=== PATIENT | female | born 1945 | race Caucasian/White ===

== ENCOUNTER 2016-10-22 22:03 | Inpatient (IN) | payer MEDICARE ==
[2016-10-22] MEDS ORDERED: Ondansetron INJ* 2 MG/ML VIAL IV ONE (22:38)
[2016-10-22] MEDS ORDERED: NS 0.9% 1000 ML* 1,000 ML IV ONE (22:38)
[2016-10-22] MEDS ORDERED: Morphine INJ* 2 MG/ML 1 ML SYRINGE IV ONE (22:38)
[2016-10-22 23:04] LABS: Hematocrit 42 % (35-47); Hemoglobin 13.3 g/dl (12.0-16.0); Mean Corpuscular HGB Conc 32 g/dl (31-36); Mean Corpuscular Hemoglobin 25 pg (27-31); Mean Corpuscular Volume 77 fL (80-97); Mean Platelet Volume 10 um3 (7.4-10.4); Red Blood Count 5.39 10^6/ul (4.0-5.4); Red Cell Distribution Width 16 % (10.5-15); White Blood Count 21.9 10^3/ul (3.5-10.8)
[2016-10-22 23:13] LABS: Comments Flag Yes
[2016-10-22 23:14] LABS: Add Diff/Slide Review? Slide Review Added
[2016-10-22 23:18] LABS: Albumin 4.6 g/dL (3.2-5.2); BUN/Creatinine Ratio 30.9 (8-20); C Reactive Protein 57.72 mg/L (< 5.00); Calcium 10.1 mg/dL (8.6-10.3); EGFR African American 62.6 (>60); EGFR Non-African American 48.7 (>60); Globulin 2.9 g/dL (2-4); Magnesium 2.1 mg/dL (1.9-2.7); Potassium 4.9 mmol/L (3.5-5.0); Total Bilirubin 0.5 mg/dL (0.2-1.0); Total Protein 7.5 g/dL (6.4-8.9)
[2016-10-22 23:51] LABS: Immature Granulocytes 14 % (0-9); Neutrophil % 78 % (38-83); RBC Morphology Normal (Normal); Reactive Lymph % 1 % (0-6)
[2016-10-23] MEDS ORDERED: Iodixanol* (CONTRAST) 320 MG/ML 100 ML SDV IV ONE (00:02)
--- NOTE | 2016-10-23 01:12 | HP ---
H&P (Free Text) History and Physical: PCP: Dale Gastelum MD Date/Time of Evaluation: 10/22/2016 2355 CC: abdominal pain HPI: Mrs Barger is a 71YO female HX diverticulosis presents with onset LUQ pain after she awoke this AM around 0800. She had not had a bowel movement for 2 days and so took Benefiber OTC last night. The pain is cramping and has gradually worsened throughout the day becoming associated with subjective F/C, N /V/D, & sweats. She states this feels the same as when she had diverticulosis . She has had some mild intermittent SOB, but no chest pain or palpitations. There has been no black or bloody content to her emesis or diarrhea. She denies exacerbating or alleviating factors. 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, B internal iliac, & R external iliac COPD upper GI bleed HTN HLD diverticulosis GERD depression Ambulatory Orders Simvastatin TAB(NF) [Zocor 20 MG (NF)] 2 tab PO DAILY 12/27/14 buPROPion SR TAB* [Wellbutrin SR TAB*] 1 tab PO TID 12/27/14 Albuterol 2.5MG/3ML (0.083%)* [Ventolin 2.5 MG/3 ML NEB.ENRIQUE*] 1 neb.enrique INH Q6HR PRN 03/12/15 Glipizide 1 tab PO BID 03/12/15 Albuterol HFA INHALER* [Ventolin HFA Inhaler*] 2 puff INH BID 05/28/15 Clopidogrel TAB* [Plavix TAB*] 1 tab PO DAILY 08/01/15 Tiotropium CAP.INH* [Spiriva CAP.INH*] 1 puff INH DAILY 08/01/15 Pantoprazole TAB (NF) [Protonix TAB (NF)] 40 mg PO DAILY #30 tab 02/05/16 Fluticasone/Vilanterol MDI(NF) [Breo Ellipta MDI 100/25(NF)] 1 puff INH DAILY Hydrochlorothiazide TAB* [Hydrodiuril TAB*] 25 mg PO DAILY 07/28/16 Lisinopril [Zestril 10 MG-] 10 mg PO DAILY 07/28/16 Bumetanide TAB* [Bumex 1 MG TAB*] 1 tab PO WEEKLY PRN 10/23/16 Diltiazem CD CAP* [Cardizem CD CAP*] 240 mg PO DAILY 10/23/16 Allergies Atorvastatin Allergy (Verified 02/01/16 22:30) Diarrhea Azithromycin [From Zithromax] Allergy (Verified 02/01/16 22:30) Hives Levofloxacin [From Levaquin] Allergy (Verified 02/01/16 22:30) Hives Penicillins Allergy (Verified 02/01/16 22:30) Hives PSurgHx stents to aorta, B internal iliac, & R external iliac SocHx: quit smoking 2014, rare alcohol, no recreational drugs; lives with her ; full code status FamHx: Mother passed of lung CA in her 60s. Father passed of colon CA in his 40s. Brother x2: DM2; Brother x1: SLE ROS: as above, otherwise reviewed and all were negative Constitutional: NAD, normally developed, well-nourished white female vitals: Vital Signs Temp 37.4 C 10/22/16 22:11 Pulse 83 10/23/16 03:37 Resp 16 10/22/16 23:27 BP 140/61 10/23/16 03:37 Pulse Ox 94 10/23/16 03:37 Intake & Output 10/22/16 10/22/16 10/23/16 11:59 23:59 11:59 Weight 65.317 kg Other: Date of Last Bowel 10/20/16 Movement HEENM: atraumatic; sclera/conjunctiva: non-icteric/clear; hearing: clinically intact ; oropharynx: clear, mucosa tacky Neck: soft tissue: no nuchal rigidity; thyroid: normal Pulmonary: clear to auscultation bilaterally, good aeration, no accessory muscle use CV: RR/RR, normal S1S2, no carotid bruit, no jugular venous distention, 2+ B DP/ PT, no edema Abdominal: soft, non-distended, moderate diffuse tenderness worst in the LUQ, no rebound/guarding/rigidity, hypoactive bowel sounds, no hepatosplenomegaly or masses, no costovertebral angle tenderness Musculoskeletal: general: grossly intact; gait: stable Integumental: normal appearance and texture of exposed skin Psychiatric orientation: AA&O to PPS affect: calm mood: cooperative eye contact: fair content: reliable responses: timely insight: good Testing: Lab Results 10/22/16 10/22/16 10/22/16 Range/Units 22:54 22:54 22:54 WBC 21.9 H (3.5-10.8) 10^3/ul RBC 5.39 (4.0-5.4) 10^6/ul Hgb 13.3 (12.0-16.0) g/dl Hct 42 (35-47) % MCV 77 L (80-97) fL MCH 25 L (27-31) pg MCHC 32 (31-36) g/dl RDW 16 H (10.5-15) % Plt Count 271 (150-450) 10^3/ul MPV 10 (7.4-10.4) um3 Immature Gran % (Auto) 14 H (0-9) % Neut % (Auto) 93.6 H (38-83) % Lymph % (Auto) 2.6 L (25-47) % [place] % (Auto) 3.4 (1-9) % Eos % (Auto) 0 (0-6) % Baso % (Auto) 0.4 (0-2) % Absolute Neuts (auto) 20.5 H (1.5-7.7) 10^3/ul Absolute Lymphs (auto) 0.6 L (1.0-4.8) 10^3/ul Absolute Monos (auto) 0.7 (0-0.8) 10^3/ul Absolute Eos (auto) 0 (0-0.6) 10^3/ul Absolute Basos (auto) 0.1 (0-0.2) 10^3/ul Absolute Nucleated RBC 0.01 10^3/ul Neutrophils % 78 (38-83) % Band Neutrophils % 14 H (0-8) % Lymphocytes % 5 L (25-47) % Reactive Lymphs % 1 (0-6) % Monocytes % 2 (0-13) % Nucleated RBC % 0 Normal RBC Morphology Normal (Normal) Sodium 136 (133-145) mmol/L Potassium 4.9 (3.5-5.0) mmol/L Chloride 99 L (101-111) mmol/L Carbon Dioxide 27 (22-32) mmol/L Anion Gap 10 (2-11) mmol/L BUN 34 H (6-24) mg/dL Creatinine 1.10 H (0.51-0.95) mg/dL Est GFR ( Amer) 62.6 (>60) Est GFR (Non-Af Amer) 48.7 (>60) BUN/Creatinine Ratio 30.9 H (8-20) Glucose 325 H (70-100) mg/dL Lactic Acid 1.6 (0.5-2.0) mmol/L Calcium 10.1 (8.6-10.3) mg/dL Magnesium 2.1 (1.9-2.7) mg/dL Total Bilirubin 0.50 (0.2-1.0) mg/dL AST 10 L (13-39) U/L ALT 10 (7-52) U/L Alkaline Phosphatase 88 (34-104) U/L C-Reactive Protein 57.72 H (< 5.00) mg/L Total Protein 7.5 (6.4-8.9) g/dL Albumin 4.6 (3.2-5.2) g/dL Globulin 2.9 (2-4) g/dL Albumin/Globulin Ratio 1.6 (1-3) Lipase 595 H (11.0-82.0) U/L CXR, personally reviewed: no acute process CT abd/pel W, personally reviewed: IMPRESSION: Moderate to severe inflammation of the distal transverse colon, splenic flexure, and proximal descending colon which may be secondary to infection, bowel ischemia, or inflammatory bowel disease. Acute diverticulitis is considered less likely. No obvious secondary complications. Stable bilateral adrenal nodules may be adenomas. Gallstones. Tiny fibroids. Mild central canal narrowing from a retropulsed L4 compression fracture which is new since the prior exam but still appears old. Impression: 71F presenting with <24H LUQ abdominal pain found to have DIAGNOSIS & PLAN Primary trasverse & descending colitis, likely infectious vs ischemic : IVFs : IV meropenem (allergy to PCN & quinalones) : pain control : anti-emetics : blood CXs : Elan Kerr MD surgery aware, but not consulted as no surgical indication present at this time : supplemental oxygen : supportive care EVELYN : IVFs, trend elevated lipase : suspect 2nd proximity of pancreas to severely inflammed transverse colon : trend Secondary DM2 : hold glipizide : update A1c : correctional insulin PAOD : HX stents to aorta, B internal iliac, & R external iliac : continue clopidogrel COPD : albuterol nebs : mometasone/formoterol : tiotropium : incentive spirometry HTN : hold lisinopril in setting of EVELYN : hold HCTZ in setting of volume depletion : continue diltiazem HLD : continue atorvastatin GERD : continue pantoprazole depression : continue bupropion SR Admission Rational: inpatient for severe colitis in patient at risk of rapid deterioration, inappropriate for outpatient setting DVTp: heparin SQ & SCDs Code Status: full HCP:
--- NOTE | 2016-10-23 01:18 | ED ---
Gil Tolbert Thomas, scribed for Jim Mo MD on 10/22/16 at 2314 . Abdominal Pain/Female - HPI Summary HPI Summary: The pt is a 71 y/o F presenting to the ED c/o LUQ abd pain that began this AM at 08:00. The pain is constant and described as cramping and sharp. The pt rates the pain 8/10. The pain is aggravated by nothing. The pain is alleviated by positional change, sometimes. 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 Pt additionally c/o constipation (last BM two days ago), nausea, vomiting ( 10-12x today). PMHx: DM, HTN, COPD, diverticulosis. PSHx: tubal ligation, adenoma removal L thigh. SHx: former smoker, rare alcohol use, no illicit drug use. She reports prior episodes of pain like this during which she was diagnosed with diverticulosis. She is on Oxygen NC at time of examination. - History of Current Complaint Chief Complaint: EDAbdPain Stated Complaint: ABD PAIN Time Seen by Provider: 10/22/16 22:34 Hx Obtained From: Patient, Family/Creative Arts Therapist - in room Onset/Duration: Sudden Onset, Lasting Hours - this AM at 08:00, Still Present Timing: Constant Pain Intensity: 8 Pain Scale Used: 0-10 Numeric Location: Discrete At: LUQ Character: Sharp, Cramping Aggravating Factor(s): Nothing Alleviating Factor(s): Position - sometimes Associated Signs and Symptoms: Positive: Constipation, Nausea, Vomiting - 10- 12x today. Negative: Fever Allergies/Adverse Reactions: Allergies Allergy/AdvReac Type Severity Reaction Status Date / Time Atorvastatin Allergy Diarrhea Verified 02/01/16 22:30 Azithromycin [From Zithromax] Allergy Hives Verified 02/01/16 22:30 Levofloxacin [From Levaquin] Allergy Hives Verified 02/01/16 22:30 Penicillins Allergy Hives Verified 02/01/16 22:30 Home Medications: Home Medications Bumetanide TAB* [Bumex 1 MG TAB*] 1 tab PO WEEKLY PRN 10/23/16 [History Confirmed 10/23/16] Diltiazem CD CAP* [Cardizem CD CAP*] 240 mg PO DAILY 10/23/16 [History Confirmed 10/23/16] PMH/Surg Hx/FS Hx/Imm Hx Previously Healthy: No Endocrine/Hematology History: Reports: Hx Diabetes Denies: Hx Thyroid Disease Cardiovascular History: Reports: Hx Hypertension - ON MEDS, Other Cardiovascular Problems/Disorders - 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 / 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/2015 Denies: Hx Pacemaker/ICD Respiratory History: Reports: Hx Asthma, Hx Chronic Obstructive Pulmonary Disease (COPD) - on home O2 - 2 L at night, Hx Pneumonia GI History: Reports: Hx Diverticulosis Denies: Hx Ulcer History: Denies: Hx Renal Disease Musculoskeletal History: Reports: Hx Back Problems - chronic pain, Other Musculoskeletal History - shoulder pain Sensory History: Reports: Hx Contacts or Glasses Denies: Hx Hearing Aid Opthamlomology History: Reports: Hx Contacts or Glasses Neurological History: Comment Only: Other Neuro Impairments/Disorders - PAIN CLINIC PATIENT Psychiatric History: Reports: Hx Anxiety, Hx Depression Denies: Hx Panic Disorder - Surgical History Surgery Procedure, Year, and Place: TUBAL LIGATION, FATTY MASS FROM LT THIGH - Immunization History Date of Tetanus Vaccine: unk Date of Influenza Vaccine: 12/31/15 Infectious Disease History: No Infectious Disease History: Denies: Hx Hepatitis, Hx Human Immunodeficiency Virus (HIV), History Other Infectious Disease, Traveled Outside the [place] in Last 30 Days - Family History Known Family History: Positive: Diabetes Negative: Cardiac Disease, Hypertension - Social History Alcohol Use: Rare Hx Substance Use: No Substance Use Type: Reports: None Smoking Status (MU): Former Smoker Type: Cigarettes Amount Used/How Often: 1 ppd Length of Time of Smoking/Using Tobacco: 50 yrs Have You Smoked in the Last Year: No Review of Systems Negative: Fever Positive: Abdominal Pain - LUQ, onset this AM, Vomiting - 10-12 times today, Nausea, Other - constipation (last BM two days ago) All Other Systems Reviewed And Are Negative: Yes Physical Exam Triage Information Reviewed: Yes Vital Signs On Initial Exam: Initial Vitals Temp Pulse Resp BP Pulse Ox 99.3 F 82 16 187/70 96 10/22/16 22:11 10/22/16 22:11 10/22/16 22:11 10/22/16 22:11 10/22/16 22:11 Vital Signs Reviewed: Yes Appearance: Positive: Ill-Appearing, Pain Distress - modeate discomfort Skin: Positive: Warm Head/Face: Positive: Normal Head/Face Inspection Eyes: Positive: FABRIZIO ENT: Positive: Hearing grossly normal Neck: Positive: Supple Respiratory/Lung Sounds: Positive: Clear to Auscultation, Breath Sounds Present Cardiovascular: Positive: RRR Abdomen Description: Positive: Soft, Other: - mild diffuse abd tenderness. Negative: Distended, Guarding Musculoskeletal: Positive: Strength/ROM Intact Neurological: Positive: Alert, Oriented to Person Place, Time Psychiatric: Positive: Affect/Mood Appropriate - Miller Coma Scale Coma Scale Total: 15 Diagnostics - Vital Signs Vital Signs Temp Pulse Resp BP Pulse Ox 10/22/16 22:11 99.3 F 82 16 187/70 96 - Laboratory Result Diagrams: 10/22/16 22:54 10/22/16 22:54 Lab Statement: Any lab studies that have been ordered have been reviewed, and results considered in the medical decision making process. Re-Evaluation - Re-Evaluation First Eval Comment: results d/w pt, case d/w hospitalist Abdominal Pain Fem Course/Dx - Diagnoses Provider Diagnoses: Abdominal pain - Provider Notifications Instructed by Provider To: Admit As Inpatient Discharge - Discharge Plan Condition: Fair Disposition: ADMITTED TO [facility] The documentation as recorded by the Gil prado Thomas accurately reflects the service I personally performed and the decisions made by , Jim Mo MD.
[2016-10-23] MEDS ORDERED: Acetaminophen TAB* 325 MG PO PRN (04:15)
[2016-10-23] MEDS ORDERED: CMCS: Melatonin (NF) 3 MG TAB PO PRN (04:16)
[2016-10-23] MEDS ORDERED: NS 0.9% 1000 ML* 1,000 ML IV ONE (04:30)
[2016-10-23] MEDS ORDERED: Meropenem 1 GM PREMIX(*) 1 GM/50 ML BAG IV SCH (05:00)
[2016-10-23] MEDS: HYDROmorphone* 1 MG/ML 1 ML SYR IV PRN ×4 (05:33→20:22)
[2016-10-23 06:03] LABS: Hematocrit 36 % (35-47); Hemoglobin 11.5 g/dl (12.0-16.0); Mean Corpuscular HGB Conc 32 g/dl (31-36); Mean Corpuscular Hemoglobin 25 pg (27-31); Mean Corpuscular Volume 77 fL (80-97); Mean Platelet Volume 10 um3 (7.4-10.4); Red Blood Count 4.65 10^6/ul (4.0-5.4); Red Cell Distribution Width 16 % (10.5-15); White Blood Count 18.1 10^3/ul (3.5-10.8)
[2016-10-23 06:16] LABS: BUN/Creatinine Ratio 33.7 (8-20); Calcium 9.3 mg/dL (8.6-10.3); EGFR African American 74.2 (>60); EGFR Non-African American 57.7 (>60); Potassium 4.2 mmol/L (3.5-5.0)
[2016-10-23] MEDS: NS 0.9% 1000 ML* 1,000 ML IV SCH ×3 (06:31→23:34)
--- NOTE | 2016-10-23 06:43 | PN ---
Progress Note - Progress Note Date of Service: 10/23/16 Note: Given clinical picture & escalating lipase, concurrent pancreatitis is suspected. Will make NPO x/ meds w/ sips H2O.
--- NOTE | 2016-10-23 08:17 | RAD ---
INDICATION: Left upper quadrant abdominal pain COMPARISON: Chest x-ray dated February 03, 2016 TECHNIQUE: PA and lateral views of the chest were obtained. FINDINGS: The heart and mediastinum are normal in size and contour. There is coarse atherosclerotic calcification overlying the arch of the aorta. The lungs are grossly clear. There is no evidence of large pleural effusion. Visualized bones are normal for the patient's age. There is no radiographic evidence of free air beneath the diaphragm IMPRESSION: No radiographic evidence of acute cardiopulmonary disease.
[2016-10-23] MEDS: Clopidogrel TAB* 75 MG PO SCH (08:26)
[2016-10-23] MEDS: Diltiazem CD CAP* 240 MG PO SCH (08:26)
[2016-10-23] MEDS: CMCS: Pantoprazole TAB (NF) 40 MG TAB PO SCH (08:26)
[2016-10-23] MEDS: CMCS: Simvastatin TAB(NF) 20 MG TAB PO SCH (08:26)
--- NOTE | 2016-10-23 08:34 | RAD ---
CLINICAL HISTORY: Left upper quadrant pain x2 days COMPARISON: CTA abdomen and pelvis with runoff dated May 13, 2015 TECHNIQUE: Contrast enhanced CT examination of the abdomen and pelvis from the lung bases through the initial tuberosities. The patient received 81 mL Visipaque 320 intravenously prior to imaging.The patient received oral contrast as well prior to imaging. FINDINGS: VISUALIZED LUNG BASES: The lungs exhibit diffuse centrilobular emphysematous changes. Otherwise the visualized lung bases are grossly clear. There is no pleural effusion. ABDOMEN AND PELVIS: The liver, spleen and pancreas are grossly normal in appearance. Bilaterally the adrenal glands are hypertrophied and lobular in appearance. At the apex of the left adrenal gland (image 32) there is a 1.5 cm nodule slightly increased from 1.3 cm on the previous CT examination. There are hyperattenuating gallstones in the dependent portion of the otherwise normal-appearing gallbladder. There are bilateral fluid density cysts in the kidneys. Smaller subcentimeter low-attenuation foci cannot be characterized more fully. Otherwise the Kidneys are normal in appearance without focal mass, calcification or signs of hydronephrosis. The oral contrast has progressed as far as the distal small bowel. The small and large bowel are not distended. The patient's normal appendix is identified in the right lower quadrant. Beginning at the transverse colon there is inflammatory change that includes wall thickening and pericolonic stranding of the mesenteric fat. This extends as far as the proximal portion of the descending colon. There are scattered diverticula in this area. The diverticula becoming more concentrated at the rectosigmoid colon. There is no gross retroperitoneal or mesenteric lymphadenopathy. Coarse calcification in the uterus could be seen with chronic fibroids. There is widespread calcified atherosclerosis of the abdominal aorta, branch arteries and iliac arteries. The patient is status post stenting of the iliac arteries and lower abdominal aorta. Degenerative changes include multilevel loss of intervertebral disc height involving the lower thoracic and lumbar spine.There are no sinister bone lesions. IMPRESSION: 1. There is focal inflammatory change from the midpoint of the transverse colon extending to the proximal descending colon. Potentially this represents acute diverticulitis or is secondary to other infectious or inflammatory etiologies. Due to the patient's vasculopathy, an ischemic etiology could be considered, though the distribution is not characteristic for bowel infarction. Please correlate to lactate levels. 2. Right greater than left adrenal hyperplasia with a left adrenal soft tissue nodule that has not changed significantly since the February 04, 2016 CTA of the chest. If clinically warranted more complete characterization can be made with CT of the abdomen according to the adrenal gland protocol or by contrast-enhanced MRI of the abdomen. 3. Additional chronic, degenerative and iatrogenic findings described in the body the report.
[2016-10-23] MEDS: Insulin LISPRO* 1 UNITS UNIT SUBCUT SCH ×4 (08:38→23:44)
[2016-10-23] MEDS ORDERED: Spiriva Inhaler DEVICE* 1 EACH DEVICE INH ONE (09:00)
[2016-10-23] MEDS ORDERED: GLIPIZIDE PO SCH (09:00)
[2016-10-23] MEDS: Tiotropium CAP.INH* CAP.INH/18 MCG (USE ORDER SET !) INH SCH (09:04)
[2016-10-23] MEDS: Mometasone/Formoter 200/5 MDI INH SCH ×2 (09:05→19:36)
[2016-10-23 12:53] LABS: Urine Bacteria Absent (Absent); Urine Bilirubin Negative (Negative); Urine Glucose 3+(>=500 mg/dL) (Negative); Urine Nitrite Negative (Negative)
--- NOTE | 2016-10-23 16:18 | PN ---
Subjective Date of Service: 10/23/16 Interval History: Patient still with abdominal pain. Resting more comfortably right now. Objective Active Medications: Acetaminophen (Tylenol Tab*) 650 mg PO Q6H PRN PRN Reason: FEVER/PAIN Albuterol (Ventolin 2.5 Mg/3 Ml Neb.Abigail*) 2.5 mg INH Q2H PRN PRN Reason: SOB/WHEEZING Bupropion HCl (Wellbutrin Sr Tab*) 150 mg PO BID@0800,1700 [facility] Clopidogrel Bisulfate (Plavix Tab*) 75 mg PO DAILY [facility] Last Admin: 10/23/16 08:26 Dose: 75 mg Diltiazem HCl (Cardizem Cd Cap*) 240 mg PO DAILY [facility] Last Admin: 10/23/16 08:26 Dose: 240 mg Heparin Sodium (Porcine) (Heparin Vial(*)) 5,000 units SUBCUT Q8HR [facility] Hydromorphone HCl (Dilaudid Iv*) 0.5 mg IV Q2H PRN PRN Reason: PAIN Last Admin: 10/23/16 15:13 Dose: 0.5 mg Sodium Chloride (Ns 0.9% 1000 Ml*) 1,000 mls @ 125 mls/hr IV PER RATE [facility] Last Admin: 10/23/16 15:24 Dose: 125 mls/hr Ceftriaxone Sodium 1,000 mg/ (Sodium Chloride) 50 mls @ 200 mls/hr IVPB Q24H [facility] Metronidazole/Sodium Chloride (Flagyl 500 Mg Ivpb*) 500 mg in 100 mls @ 100 mls /hr IVPB Q8H [facility] Insulin Human Lispro (Humalog*) 0 units SUBCUT Q4H [facility] PRN Reason: Protocol Last Admin: 10/23/16 12:31 Dose: Not Given Melatonin (Melatonin (Nf)) 3 mg PO BEDTIME PRN; Protocol PRN Reason: Sleep Mometasone Furoate/Formoterol Fumar (Dulera 200/5 Mdi*) 2 puff INH BID [facility] Last Admin: 10/23/16 09:05 Dose: 2 puff Ondansetron HCl (Zofran Inj*) 4 mg IV Q6H PRN PRN Reason: NAUSEA Pantoprazole Sodium (Protonix Tab (Nf)) 40 mg PO DAILY [facility] Last Admin: 10/23/16 08:26 Dose: 40 mg Simvastatin (Zocor(Nf)) 40 mg PO DAILY [facility] Last Admin: 10/23/16 08:26 Dose: 40 mg Tiotropium Gary (Spiriva Cap.Inh*) 1 cap INH DAILY [facility] Last Admin: 10/23/16 09:04 Dose: 1 cap Vital Signs 10/23/16 10/23/16 10/23/16 05:30 05:31 05:33 Temperature 98.9 F 98.9 F Pulse Rate 84 84 Respiratory 20 20 17 Rate Blood Pressure 150/72 150/72 (mmHg) O2 Sat by Pulse 100 100 Oximetry 10/23/16 10/23/16 10/23/16 06:33 07:30 08:00 Temperature 98.1 F Pulse Rate 76 Respiratory 17 22 14 Rate Blood Pressure 183/61 (mmHg) O2 Sat by Pulse 97 Oximetry 10/23/16 10/23/16 10/23/16 09:07 12:18 15:13 Temperature Pulse Rate 82 Respiratory 14 14 16 Rate Blood Pressure (mmHg) O2 Sat by Pulse 94 Oximetry Oxygen Devices in Use Now: Nasal Cannula Appearance: Elderly woman lying in bed in NAD Eyes: No Scleral Icterus Ears/Nose/Mouth/Throat: Mucous Membranes Moist Neck: No Thyroid Enlargement, Masses Respiratory: Clear to Auscultation Cardiovascular: - - S1S2 martin Abdominal: No Hepatosplenomegaly, - - Diffusely Tender, but no rebound guarding or rigidity Lymphatic: No Cervical Adenopathy Extremities: No Clubbing, Cyanosis Skin: No Rash or Ulcers Neurological: Alert and Oriented x 3 Result Diagrams: 10/23/16 05:46 10/23/16 05:46 Assess/Plan/Problems-Billing Assessment: Patient is a 71 year old woman who presented to [facility] with abdominal pain and initially thought to have colitis but likey has pancreatitis. - Patient Problems (1) Pancreatitis Current Visit: Yes Status: Acute Code(s): K85.90 - ACUTE PANCREATITIS WITHOUT NECROSIS OR INFECTION, UNSP SNOMED Code(s): 20946130 Comment: Lipase elevated. Keep npo. IVF. Monitor. Consider GI consult if no improvement. Her Inez criteria initially was problematic with elevated WBC, glucose, age. Will recheck labs after hydration tomorrow. (2) Diverticulitis Current Visit: Yes Status: Acute Comment: It is possible to have concurrent colitis and/or diverticulitis so will continue rocephin and flagyl for now. (3) EVELYN (acute kidney injury) Current Visit: No Status: Acute Code(s): N17.9 - ACUTE KIDNEY FAILURE, UNSPECIFIED SNOMED Code(s): 39282964 Comment: Improved since admission. Monitor. (4) Type 2 diabetes mellitus Current Visit: No Status: Acute Comment: Glucose 200's. Oral hypoglycemic agents held at this time. Cover with SS Humalog (5) GERD (gastroesophageal reflux disease) Current Visit: Yes Status: Acute Code(s): K21.9 - GASTRO-ESOPHAGEAL REFLUX DISEASE WITHOUT ESOPHAGITIS SNOMED Code(s): 192597249 Comment: Continue Protonix. Stable. (6) COPD (chronic obstructive pulmonary disease) Current Visit: No Status: Chronic Code(s): J44.9 - CHRONIC OBSTRUCTIVE PULMONARY DISEASE, UNSPECIFIED SNOMED Code(s): 71062721 Comment: No evidence of acute exacerbation. Cont home inhaled medications (7) Hypertension Current Visit: No Status: Chronic Code(s): I10 - ESSENTIAL (PRIMARY) HYPERTENSION SNOMED Code(s): 40054400 Comment: BP elevated 150 - 180's. Cont diltiazem. Consider adjustment if necessary. (8) DVT prophylaxis Current Visit: Yes Status: Acute Code(s): XLC6815 - SNOMED Code(s): 341878279 Comment: Heparin sq and scds (9) Full code status Current Visit: No Status: Acute Code(s): Z78.9 - OTHER SPECIFIED HEALTH STATUS SNOMED Code(s): 904991829
[2016-10-23] MEDS: metroNIDAZOLE IV 500 MG/100ML* 500 MG/100 ML BAG IVPB SCH ×2 (16:42→23:34)
[2016-10-23] MEDS: buPROPion SR TAB.SR* 150 MG PO SCH (16:43)
[2016-10-23] MEDS: cefTRIAXone VIAL(*) 1,000 MG in NS 0.9% 50 ML* 50 ML IVPB SCH (18:55)
[2016-10-23] MEDS: Ondansetron INJ* 2 MG/ML VIAL IV PRN (20:52)
[2016-10-24] MEDS: Insulin LISPRO* 1 UNITS UNIT SUBCUT SCH ×5 (03:34→21:45)
[2016-10-24] MEDS: HYDROmorphone* 1 MG/ML 1 ML SYR IV PRN ×4 (04:23→23:58)
[2016-10-24] MEDS: Heparin VIAL(*) 5000 UNITS/ML VIAL (FIVE THOUSAND) SUBCUT SCH ×3 (05:18→21:21)
[2016-10-24 06:29] LABS: Hematocrit 31 % (35-47); Hemoglobin 9.8 g/dl (12.0-16.0); Mean Corpuscular HGB Conc 32 g/dl (31-36); Mean Corpuscular Hemoglobin 25 pg (27-31); Mean Corpuscular Volume 78 fL (80-97); Mean Platelet Volume 9 um3 (7.4-10.4); Red Blood Count 3.93 10^6/ul (4.0-5.4); Red Cell Distribution Width 16 % (10.5-15); White Blood Count 14.1 10^3/ul (3.5-10.8)
[2016-10-24 06:44] LABS: Albumin 2.9 g/dL (3.2-5.2); BUN/Creatinine Ratio 32.2 (8-20); Calcium 8.6 mg/dL (8.6-10.3); EGFR African American 128.5 (>60); EGFR Non-African American 99.9 (>60); Globulin 2.7 g/dL (2-4); Potassium 3.9 mmol/L (3.5-5.0); Total Protein 5.6 g/dL (6.4-8.9)
[2016-10-24 06:45] LABS: Total Bilirubin 0.2 mg/dL (0.2-1.0)
[2016-10-24] MEDS: Mometasone/Formoter 200/5 MDI INH SCH ×2 (07:30→19:53)
[2016-10-24] MEDS: Tiotropium CAP.INH* CAP.INH/18 MCG (USE ORDER SET !) INH SCH (07:31)
[2016-10-24] MEDS: Ondansetron INJ* 2 MG/ML VIAL IV PRN (08:12)
[2016-10-24] MEDS: CMCS: Simvastatin TAB(NF) 20 MG TAB PO SCH (08:14)
[2016-10-24] MEDS: Diltiazem CD CAP* 240 MG PO SCH (08:14)
[2016-10-24] MEDS: Clopidogrel TAB* 75 MG PO SCH (08:14)
[2016-10-24] MEDS: CMCS: Pantoprazole TAB (NF) 40 MG TAB PO SCH (08:14)
[2016-10-24] MEDS: buPROPion SR TAB.SR* 150 MG PO SCH ×2 (08:14→16:55)
[2016-10-24] MEDS: metroNIDAZOLE IV 500 MG/100ML* 500 MG/100 ML BAG IVPB SCH ×2 (08:24→15:13)
[2016-10-24] MEDS: NS 0.9% 1000 ML* 1,000 ML IV SCH ×2 (08:26→19:32)
--- NOTE | 2016-10-24 14:54 | PN ---
Subjective Date of Service: 10/24/16 Interval History: Patient still with 7/7 pain but says she is feeling better. She wants to try and advance her diet. Objective Active Medications: Acetaminophen (Tylenol Tab*) 650 mg PO Q6H PRN PRN Reason: FEVER/PAIN Albuterol (Ventolin 2.5 Mg/3 Ml Neb.Abigail*) 2.5 mg INH Q2H PRN PRN Reason: SOB/WHEEZING Bupropion HCl (Wellbutrin Sr Tab*) 150 mg PO BID@0800,1700 [facility] Last Admin: 10/24/16 08:14 Dose: 150 mg Clopidogrel Bisulfate (Plavix Tab*) 75 mg PO DAILY [facility] Last Admin: 10/24/16 08:14 Dose: 75 mg Diltiazem HCl (Cardizem Cd Cap*) 240 mg PO DAILY [facility] Last Admin: 10/24/16 08:14 Dose: 240 mg Heparin Sodium (Porcine) (Heparin Vial(*)) 5,000 units SUBCUT Q8HR [facility] Last Admin: 10/24/16 13:57 Dose: 5,000 units Hydromorphone HCl (Dilaudid Iv*) 0.5 mg IV Q2H PRN PRN Reason: PAIN Last Admin: 10/24/16 08:13 Dose: 0.5 mg Sodium Chloride (Ns 0.9% 1000 Ml*) 1,000 mls @ 125 mls/hr IV PER RATE [facility] Last Admin: 10/24/16 08:26 Dose: 125 mls/hr Ceftriaxone Sodium 1,000 mg/ (Sodium Chloride) 50 mls @ 200 mls/hr IVPB Q24H [facility] Last Admin: 10/23/16 18:55 Dose: 200 mls/hr Metronidazole/Sodium Chloride (Flagyl 500 Mg Ivpb*) 500 mg in 100 mls @ 100 mls /hr IVPB Q8H [facility] Last Admin: 10/24/16 08:24 Dose: 100 mls/hr Insulin Human Lispro (Humalog*) 0 units SUBCUT Q4H [facility] PRN Reason: Protocol Last Admin: 10/24/16 11:46 Dose: Not Given Melatonin (Melatonin (Nf)) 3 mg PO BEDTIME PRN; Protocol PRN Reason: Sleep Mometasone Furoate/Formoterol Fumar (Dulera 200/5 Mdi*) 2 puff INH BID [facility] Last Admin: 10/24/16 07:30 Dose: 2 puff Ondansetron HCl (Zofran Inj*) 4 mg IV Q6H PRN PRN Reason: NAUSEA Last Admin: 10/24/16 08:12 Dose: 4 mg Pantoprazole Sodium (Protonix Tab (Nf)) 40 mg PO DAILY [facility] Last Admin: 10/24/16 08:14 Dose: 40 mg Simvastatin (Zocor(Nf)) 40 mg PO DAILY [facility] Last Admin: 10/24/16 08:14 Dose: 40 mg Tiotropium [place] (Spiriva Cap.Inh*) 1 cap INH DAILY [facility] Last Admin: 10/24/16 07:31 Dose: 1 cap Vital Signs 10/23/16 10/23/16 10/23/16 15:13 15:35 16:13 Temperature 98.1 F Pulse Rate 73 Respiratory 16 16 14 Rate Blood Pressure 146/55 (mmHg) O2 Sat by Pulse 95 Oximetry 10/23/16 10/23/16 10/23/16 19:35 19:38 20:00 Temperature 98.8 F Pulse Rate 78 79 Respiratory 18 18 16 Rate Blood Pressure 122/42 (mmHg) O2 Sat by Pulse 95 93 Oximetry 10/23/16 10/23/16 10/23/16 20:22 21:22 23:28 Temperature 98.4 F Pulse Rate 72 Respiratory 18 18 16 Rate Blood Pressure 137/42 (mmHg) O2 Sat by Pulse 94 Oximetry 10/24/16 10/24/16 10/24/16 03:47 04:23 05:23 Temperature 99.2 F Pulse Rate 78 Respiratory 16 18 16 Rate Blood Pressure 151/52 (mmHg) O2 Sat by Pulse 93 Oximetry 10/24/16 10/24/16 10/24/16 07:30 07:33 08:00 Temperature 98.3 F Pulse Rate 71 77 Respiratory 20 16 20 Rate Blood Pressure 143/47 (mmHg) O2 Sat by Pulse 97 93 Oximetry 10/24/16 10/24/16 10/24/16 08:13 09:13 11:29 Temperature 97.6 F Pulse Rate 75 Respiratory 18 18 22 Rate Blood Pressure 150/51 (mmHg) O2 Sat by Pulse 93 Oximetry Oxygen Devices in Use Now: Nasal Cannula Appearance: Elderly woman lying in bed in [facility] Eyes: No Scleral Icterus Ears/Nose/Mouth/Throat: Mucous Membranes Moist Neck: No Thyroid Enlargement, Masses Respiratory: Clear to Auscultation Cardiovascular: - - S1S2 martin Abdominal: No Hepatosplenomegaly, - - Some tenderness to palpation mid abdomen but no rebound guarding or rigidity Lymphatic: No Cervical Adenopathy Extremities: No Clubbing, Cyanosis Skin: No Rash or Ulcers Neurological: Alert and Oriented x 3 Result Diagrams: 10/24/16 05:53 10/24/16 05:53 Microbiology and Other Data: Microbiology 10/23/16 05:46 Aerobic Blood Culture - Preliminary Blood Venous No Growth Day 1 Anaerobic Blood Culture - Preliminary No Growth Day 1 Assess/Plan/Problems-Billing Assessment: Patient is a 71 year old woman who presented to [facility] [place] with abdominal pain and initially thought to have colitis but likey has pancreatitis. - Patient Problems (1) Pancreatitis Current Visit: Yes Status: Acute Code(s): K85.90 - ACUTE PANCREATITIS WITHOUT NECROSIS OR INFECTION, UNSP SNOMED Code(s): 45535371 Comment: Lipase improved.As is WBC .Will try clear liquid diet. IVF. Monitor. (2) Diverticulitis Current Visit: Yes Status: Acute Comment: Continue rocephin and flagyl for now.Appears to be improving. (3) EVELYN (acute kidney injury) Current Visit: No Status: Acute Code(s): N17.9 - ACUTE KIDNEY FAILURE, UNSPECIFIED SNOMED Code(s): 71532568 Comment: Resolved. (4) Type 2 diabetes mellitus Current Visit: No Status: Acute Comment: Glucose in the 140's and improved. Oral hypoglycemic agents held at this time. Cover with SS Humalog (5) GERD (gastroesophageal reflux disease) Current Visit: Yes Status: Acute Code(s): K21.9 - GASTRO-ESOPHAGEAL REFLUX DISEASE WITHOUT ESOPHAGITIS SNOMED Code(s): 602274020 Comment: Continue Protonix. Stable. (6) COPD (chronic obstructive pulmonary disease) Current Visit: No Status: Chronic Code(s): J44.9 - CHRONIC OBSTRUCTIVE PULMONARY DISEASE, UNSPECIFIED SNOMED Code(s): 22519466 Comment: No evidence of acute exacerbation. Cont home medications (7) Hypertension Current Visit: No Status: Chronic Code(s): I10 - ESSENTIAL (PRIMARY) HYPERTENSION SNOMED Code(s): 66405317 Comment: BP still elevated with SBP of 150.Continue diltiazem. Consider adjustment if necessary. (8) DVT prophylaxis Current Visit: Yes Status: Acute Code(s): YSH2533 - SNOMED Code(s): 444841120 Comment: Heparin sq and scds (9) Full code status Current Visit: No Status: Acute Code(s): Z78.9 - OTHER SPECIFIED HEALTH STATUS SNOMED Code(s): 083840629
[2016-10-24] MEDS: cefTRIAXone VIAL(*) 1,000 MG in NS 0.9% 50 ML* 50 ML IVPB SCH (16:55)
[2016-10-25] MEDS: Insulin LISPRO* 1 UNITS UNIT SUBCUT SCH ×6 (00:28→20:38)
[2016-10-25] MEDS: metroNIDAZOLE IV 500 MG/100ML* 500 MG/100 ML BAG IVPB SCH ×3 (00:28→15:12)
[2016-10-25] MEDS: HYDROmorphone* 1 MG/ML 1 ML SYR IV PRN ×3 (04:23→20:59)
[2016-10-25] MEDS: NS 0.9% 1000 ML* 1,000 ML IV SCH (05:22)
[2016-10-25] MEDS: Heparin VIAL(*) 5000 UNITS/ML VIAL (FIVE THOUSAND) SUBCUT SCH ×3 (05:23→22:44)
[2016-10-25] MEDS: Tiotropium CAP.INH* CAP.INH/18 MCG (USE ORDER SET !) INH SCH (07:11)
[2016-10-25] MEDS: Mometasone/Formoter 200/5 MDI INH SCH ×2 (07:12→19:36)
[2016-10-25 07:14] LABS: Hematocrit 26 % (35-47); Hemoglobin 8.5 g/dl (12.0-16.0); Mean Corpuscular HGB Conc 32 g/dl (31-36); Mean Corpuscular Hemoglobin 25 pg (27-31); Mean Corpuscular Volume 78 fL (80-97); Mean Platelet Volume 9 um3 (7.4-10.4); Red Blood Count 3.36 10^6/ul (4.0-5.4); Red Cell Distribution Width 16 % (10.5-15); White Blood Count 10.9 10^3/ul (3.5-10.8)
[2016-10-25] MEDS: Albuterol 2.5 MG/3 ML NEB.SOL* (0.083%) INH PRN ×2 (07:41→19:34)
[2016-10-25] MEDS: Clopidogrel TAB* 75 MG PO SCH (07:51)
[2016-10-25] MEDS: Diltiazem CD CAP* 240 MG PO SCH (07:51)
[2016-10-25] MEDS: buPROPion SR TAB.SR* 150 MG PO SCH ×2 (07:51→16:11)
[2016-10-25] MEDS: CMCS: Pantoprazole TAB (NF) 40 MG TAB PO SCH (07:51)
[2016-10-25] MEDS: CMCS: Simvastatin TAB(NF) 20 MG TAB PO SCH (07:51)
--- NOTE | 2016-10-25 15:07 | PN ---
Subjective Date of Service: 10/25/16 Interval History: Patient is feeling physically better but very drained emotionally as she just found out her brother only has 4 weeks to live. Objective Active Medications: Acetaminophen (Tylenol Tab*) 650 mg PO Q6H PRN PRN Reason: FEVER/PAIN Albuterol (Ventolin 2.5 Mg/3 Ml Neb.Abigail*) 2.5 mg INH Q2H PRN PRN Reason: SOB/WHEEZING Last Admin: 10/25/16 07:41 Dose: 2.5 mg Bupropion HCl (Wellbutrin Sr Tab*) 150 mg PO BID@0800,1700 [facility] Last Admin: 10/25/16 07:51 Dose: 150 mg Clopidogrel Bisulfate (Plavix Tab*) 75 mg PO DAILY [facility] Last Admin: 10/25/16 07:51 Dose: 75 mg Diltiazem HCl (Cardizem Cd Cap*) 240 mg PO DAILY [facility] Last Admin: 10/25/16 07:51 Dose: 240 mg Heparin Sodium (Porcine) (Heparin Vial(*)) 5,000 units SUBCUT Q8HR [facility] Last Admin: 10/25/16 13:19 Dose: 5,000 units Hydromorphone HCl (Dilaudid Iv*) 0.5 mg IV Q2H PRN PRN Reason: PAIN Last Admin: 10/25/16 13:18 Dose: 0.5 mg Ceftriaxone Sodium 1,000 mg/ (Sodium Chloride) 50 mls @ 200 mls/hr IVPB Q24H [facility] Last Admin: 10/24/16 16:55 Dose: 200 mls/hr Metronidazole/Sodium Chloride (Flagyl 500 Mg Ivpb*) 500 mg in 100 mls @ 100 mls /hr IVPB Q8H [facility] Last Admin: 10/25/16 07:54 Dose: 100 mls/hr Insulin Human Lispro (Humalog*) 0 units SUBCUT Q4H [facility] PRN Reason: Protocol Last Admin: 10/25/16 11:56 Dose: Not Given Melatonin (Melatonin (Nf)) 3 mg PO BEDTIME PRN; Protocol PRN Reason: Sleep Mometasone Furoate/Formoterol Fumar (Dulera 200/5 Mdi*) 2 puff INH BID [facility] Last Admin: 10/25/16 07:12 Dose: 2 puff Ondansetron HCl (Zofran Inj*) 4 mg IV Q6H PRN PRN Reason: NAUSEA Last Admin: 10/24/16 08:12 Dose: 4 mg Pantoprazole Sodium (Protonix Tab (Nf)) 40 mg PO DAILY [facility] Last Admin: 10/25/16 07:51 Dose: 40 mg Simvastatin (Zocor(Nf)) 40 mg PO DAILY [facility] Last Admin: 10/25/16 07:51 Dose: 40 mg Tiotropium [place] (Spiriva Cap.Inh*) 1 cap INH DAILY [facility] Last Admin: 10/25/16 07:11 Dose: 1 cap Vital Signs 10/24/16 10/24/16 10/24/16 15:34 18:28 19:28 Temperature 98.0 F Pulse Rate 74 Respiratory 24 20 16 Rate Blood Pressure 148/40 (mmHg) O2 Sat by Pulse 96 Oximetry 10/24/16 10/24/16 10/24/16 19:54 20:00 20:10 Temperature 97.6 F Pulse Rate 18 73 Respiratory 18 18 24 Rate Blood Pressure 153/52 (mmHg) O2 Sat by Pulse 91 96 Oximetry 10/24/16 10/24/16 10/25/16 23:53 23:58 00:58 Temperature 99.5 F Pulse Rate 73 Respiratory 20 18 16 Rate Blood Pressure 166/53 (mmHg) O2 Sat by Pulse 96 Oximetry 10/25/16 10/25/16 10/25/16 03:41 04:23 05:23 Temperature 98.4 F Pulse Rate 67 Respiratory 16 18 18 Rate Blood Pressure 142/46 (mmHg) O2 Sat by Pulse 95 Oximetry 10/25/16 10/25/16 10/25/16 07:20 07:43 08:00 Temperature 99.1 F Pulse Rate 68 70 Respiratory 18 16 18 Rate Blood Pressure 167/51 (mmHg) O2 Sat by Pulse 96 94 Oximetry 10/25/16 10/25/16 10/25/16 11:55 13:18 14:18 Temperature 98.8 F Pulse Rate 69 Respiratory 18 20 18 Rate Blood Pressure 164/54 (mmHg) O2 Sat by Pulse 98 Oximetry Oxygen Devices in Use Now: Nasal Cannula Appearance: Elderly woman lying in bed in [place] Eyes: No Scleral Icterus Ears/Nose/Mouth/Throat: Clear Oropharnyx, Mucous Membranes Moist Neck: No Thyroid Enlargement, Masses Respiratory: Clear to Auscultation Cardiovascular: NL Sounds; No Murmurs; No JVD, RRR Abdominal: No Hepatosplenomegaly, - - Minimally tender in mid epigastric area. No rebound, guarding or rigidity Lymphatic: No Cervical Adenopathy Extremities: No Clubbing, Cyanosis Skin: No Rash or Ulcers Neurological: Alert and Oriented x 3 Result Diagrams: 10/25/16 06:59 10/24/16 05:53 Microbiology and Other Data: Microbiology 10/23/16 05:46 Aerobic Blood Culture - Preliminary Blood Venous No Growth Day 1 Anaerobic Blood Culture - Preliminary No Growth Day 1 Assess/Plan/Problems-Billing Assessment: Patient is a 71 year old woman who [place] [facility] [place] and initially thought to have colitis but likey has pancreatitis. - Patient Problems (1) Pancreatitis Current Visit: Yes Status: Acute Code(s): K85.90 - ACUTE PANCREATITIS WITHOUT NECROSIS OR INFECTION, UNSP SNOMED Code(s): 49708058 Comment: Lipase normalized.As is WBC .Continue clear liquid diet and advance to full liquid in AM (2) Diverticulitis Current Visit: Yes Status: Acute Comment: Continue rocephin and flagyl for now.Appears to be improving. (3) EVELYN (acute kidney injury) Current Visit: No Status: Acute Code(s): N17.9 - ACUTE KIDNEY FAILURE, UNSPECIFIED SNOMED Code(s): 55153475 Comment: Resolved. (4) Type 2 diabetes mellitus Current Visit: No Status: Acute Comment: Glucose in the 120's and improved. Oral hypoglycemic agents held at this time. Cover with SS Humalog (5) GERD (gastroesophageal reflux disease) Current Visit: Yes Status: Acute Code(s): K21.9 - GASTRO-ESOPHAGEAL REFLUX DISEASE WITHOUT ESOPHAGITIS SNOMED Code(s): 219021608 Comment: Continue Protonix. Stable. (6) COPD (chronic obstructive pulmonary disease) Current Visit: No Status: Chronic Code(s): J44.9 - CHRONIC OBSTRUCTIVE PULMONARY DISEASE, UNSPECIFIED SNOMED Code(s): 50853396 Comment: No evidence of acute exacerbation. Cont home medications (7) Hypertension Current Visit: No Status: Chronic Code(s): I10 - ESSENTIAL (PRIMARY) HYPERTENSION SNOMED Code(s): 69560818 Comment: BP still elevated with SBP of 160.Continue diltiazem. Add amlodipine. (8) DVT prophylaxis Current Visit: Yes Status: Acute Code(s): OJL8501 - SNOMED Code(s): 667807777 Comment: Heparin sq and scds (9) Full code status Current Visit: No Status: Acute Code(s): Z78.9 - OTHER SPECIFIED HEALTH STATUS SNOMED Code(s): 552939907
[2016-10-25] MEDS: amLODIPine TAB* 5 MG PO SCH (16:11)
[2016-10-25] MEDS: cefTRIAXone VIAL(*) 1,000 MG in NS 0.9% 50 ML* 50 ML IVPB SCH (16:17)
[2016-10-26] MEDS: Insulin LISPRO* 1 UNITS UNIT SUBCUT SCH ×7 (00:22→23:30)
[2016-10-26] MEDS: metroNIDAZOLE IV 500 MG/100ML* 500 MG/100 ML BAG IVPB SCH ×4 (00:22→23:15)
[2016-10-26] MEDS: Albuterol 2.5 MG/3 ML NEB.SOL* (0.083%) INH PRN ×3 (04:25→19:54)
[2016-10-26] MEDS: HYDROmorphone* 1 MG/ML 1 ML SYR IV PRN ×2 (04:31→19:44)
[2016-10-26] MEDS: Heparin VIAL(*) 5000 UNITS/ML VIAL (FIVE THOUSAND) SUBCUT SCH ×3 (06:05→21:13)
[2016-10-26] MEDS: Tiotropium CAP.INH* CAP.INH/18 MCG (USE ORDER SET !) INH SCH (08:20)
[2016-10-26] MEDS: Mometasone/Formoter 200/5 MDI INH SCH ×2 (08:22→19:55)
[2016-10-26] MEDS: amLODIPine TAB* 5 MG PO SCH (08:51)
[2016-10-26] MEDS: Diltiazem CD CAP* 240 MG PO SCH (08:51)
[2016-10-26] MEDS: Clopidogrel TAB* 75 MG PO SCH (08:52)
[2016-10-26] MEDS: CMCS: Pantoprazole TAB (NF) 40 MG TAB PO SCH (08:52)
[2016-10-26] MEDS: buPROPion SR TAB.SR* 150 MG PO SCH ×2 (08:52→16:51)
[2016-10-26] MEDS: CMCS: Simvastatin TAB(NF) 20 MG TAB PO SCH (08:52)
--- NOTE | 2016-10-26 16:01 | RAD ---
Indication: Pancreatitis. Comparison: October 23, 2016 CT. Technique: Abdominal ultrasound. Report: Appropriate direction flow documented in the portal and hepatic veins. 21.8 cm cephalocaudal liver is grossly normal in echogenicity. No focal hepatic lesions or biliary dilatation. Top normal for age 7.7 mm common bile duct at the level of the pancreatic head. No ductal stones visualized. Adequately distended gallbladder with shadowing stones. Negative for gallbladder wall thickening with gallbladder wall measuring 2.5 mm. Negative for pericholecystic fluid. The pancreatic head and tail are significantly obscured due to bowel gas. The visualized pancreas is remarkable for mild duct dilatation with pancreatic duct measuring 3 mm. 8.3 x 4.1 x 5.1 cm unremarkable spleen. Small volume of perihepatic ascites. 11.5 x 5.0 x 5.6 cm RIGHT kidney with normal cortical echogenicity is remarkable for simple cysts including 1.3 cm upper pole and 1.7 cm lower pole cortical cyst. 12.1 x 5.4 x 5.1 cm LEFT kidney with normal cortical echogenicity is remarkable for simple cysts with dominant 2.4 cm lower pole and 1.6 cm midpole cyst. No visualized nephrolithiasis or hydronephrosis. Corresponding with the CT finding the limbs of the RIGHT adrenal gland are thickened likely representing hyperplasia. IMPRESSION: 1. Hepatomegaly. Small volume of nonspecific perihepatic fluid. 2. Negative for biliary dilatation. 3. Mild pancreatic duct dilatation. 4. Cholelithiasis. 5. Renal cortical cysts.
--- NOTE | 2016-10-26 17:09 | PN ---
Subjective Date of Service: 10/26/16 Interval History: Patient says abdominal pain is considerably better. but is uncomfortable going home just yet. Objective Active Medications: Acetaminophen (Tylenol Tab*) 650 mg PO Q6H PRN PRN Reason: FEVER/PAIN Albuterol (Ventolin 2.5 Mg/3 Ml Neb.Abigail*) 2.5 mg INH Q2H PRN PRN Reason: SOB/WHEEZING Last Admin: 10/26/16 08:22 Dose: 2.5 mg Amlodipine Besylate (Norvasc Tab*) 5 mg PO DAILY [facility] Last Admin: 10/26/16 08:51 Dose: 5 mg Bupropion HCl (Wellbutrin Sr Tab*) 150 mg PO BID@0800,1700 [facility] Last Admin: 10/26/16 16:51 Dose: 150 mg Clopidogrel Bisulfate (Plavix Tab*) 75 mg PO DAILY [facility] Last Admin: 10/26/16 08:52 Dose: 75 mg Diltiazem HCl (Cardizem Cd Cap*) 240 mg PO DAILY [facility] Last Admin: 10/26/16 08:51 Dose: 240 mg Heparin Sodium (Porcine) (Heparin Vial(*)) 5,000 units SUBCUT Q8HR [facility] Last Admin: 10/26/16 16:52 Dose: 5,000 units Hydromorphone HCl (Dilaudid Iv*) 0.5 mg IV Q2H PRN PRN Reason: PAIN Last Admin: 10/26/16 04:31 Dose: 0.5 mg Ceftriaxone Sodium 1,000 mg/ (Sodium Chloride) 50 mls @ 200 mls/hr IVPB Q24H [facility] Last Admin: 10/25/16 16:17 Dose: 200 mls/hr Metronidazole/Sodium Chloride (Flagyl 500 Mg Ivpb*) 500 mg in 100 mls @ 100 mls /hr IVPB Q8H [facility] Last Admin: 10/26/16 16:54 Dose: 100 mls/hr Insulin Human Lispro (Humalog*) 0 units SUBCUT Q4H [facility] PRN Reason: Protocol Last Admin: 10/26/16 17:03 Dose: Not Given Melatonin (Melatonin (Nf)) 3 mg PO BEDTIME PRN; Protocol PRN Reason: Sleep Mometasone Furoate/Formoterol Fumar (Dulera 200/5 Mdi*) 2 puff INH BID [facility] Last Admin: 10/26/16 08:22 Dose: 2 puff Ondansetron HCl (Zofran Inj*) 4 mg IV Q6H PRN PRN Reason: NAUSEA Last Admin: 10/24/16 08:12 Dose: 4 mg Pantoprazole Sodium (Protonix Tab (Nf)) 40 mg PO DAILY [facility] Last Admin: 10/26/16 08:52 Dose: 40 mg Simvastatin (Zocor(Nf)) 40 mg PO DAILY [facility] Last Admin: 10/26/16 08:52 Dose: 40 mg Tiotropium [place] (Spiriva Cap.Inh*) 1 cap INH DAILY [facility] Last Admin: 10/26/16 08:20 Dose: 1 cap Vital Signs 10/25/16 10/25/16 10/25/16 19:36 19:38 19:58 Temperature 98.5 F Pulse Rate 75 80 Respiratory 12 21 Rate Blood Pressure 153/48 (mmHg) O2 Sat by Pulse 98 98 97 Oximetry 10/25/16 10/25/16 10/25/16 20:55 20:59 21:59 Temperature Pulse Rate Respiratory 16 16 18 Rate Blood Pressure (mmHg) O2 Sat by Pulse Oximetry 10/26/16 10/26/16 10/26/16 00:15 04:13 04:27 Temperature 98.4 F 99.0 F Pulse Rate 70 64 67 Respiratory 16 16 16 Rate Blood Pressure 154/51 140/45 (mmHg) O2 Sat by Pulse 94 94 92 Oximetry 10/26/16 10/26/16 10/26/16 04:31 05:31 07:37 Temperature 98.8 F Pulse Rate 66 Respiratory 20 20 17 Rate Blood Pressure 140/45 (mmHg) O2 Sat by Pulse 95 Oximetry 10/26/16 10/26/16 10/26/16 08:00 08:24 11:08 Temperature 97.6 F Pulse Rate 74 67 Respiratory 18 16 16 Rate Blood Pressure 138/36 (mmHg) O2 Sat by Pulse 92 95 Oximetry 10/26/16 16:01 Temperature 98.4 F Pulse Rate 69 Respiratory 18 Rate Blood Pressure 157/49 (mmHg) O2 Sat by Pulse 93 Oximetry Oxygen Devices in Use Now: Nasal Cannula Appearance: Elderly woman lying in bed in NAD Eyes: No Scleral Icterus Ears/Nose/Mouth/Throat: Clear Oropharnyx Neck: No Thyroid Enlargement, Masses Respiratory: Clear to Auscultation Cardiovascular: - - S1S2 martin Abdominal: - - + BS soft, slightly diffusely tender, no rebound, guarding or rigidity Lymphatic: No Cervical Adenopathy Extremities: No Clubbing, Cyanosis Skin: No Rash or Ulcers Neurological: Alert and Oriented x 3 Result Diagrams: 10/25/16 06:59 10/24/16 05:53 Microbiology and Other Data: Microbiology 10/23/16 05:46 Aerobic Blood Culture - Preliminary Blood Venous No Growth Day 1 Anaerobic Blood Culture - Preliminary No Growth Day 1 Assess/Plan/Problems-Billing Assessment: Patient is a 71 year old woman who presented to [facility] [place] pain and initially thought to have colitis but likey has pancreatitis. - Patient Problems (1) Pancreatitis Current Visit: Yes Status: Acute Code(s): K85.90 - ACUTE PANCREATITIS WITHOUT NECROSIS OR INFECTION, UNSP SNOMED Code(s): 68253681 Comment: Advance to soft diet. Patient should be well enough to go home in the AM (2) Diverticulitis Current Visit: Yes Status: Acute Comment: Continue rocephin and flagyl for now.Appears to be improving. (3) EVELYN (acute kidney injury) Current Visit: No Status: Acute Code(s): N17.9 - ACUTE KIDNEY FAILURE, UNSPECIFIED SNOMED Code(s): 49209999 Comment: Resolved. (4) Type 2 diabetes mellitus Current Visit: No Status: Acute Comment: FS stable. Oral hypoglycemic agents held at this time. Cover with SS Humalog (5) GERD (gastroesophageal reflux disease) Current Visit: Yes Status: Acute Code(s): K21.9 - GASTRO-ESOPHAGEAL REFLUX DISEASE WITHOUT ESOPHAGITIS SNOMED Code(s): 828078510 Comment: Continue Protonix. Stable. (6) COPD (chronic obstructive pulmonary disease) Current Visit: No Status: Chronic Code(s): J44.9 - CHRONIC OBSTRUCTIVE PULMONARY DISEASE, UNSPECIFIED SNOMED Code(s): 93629466 Comment: No evidence of acute exacerbation. Cont home medications (7) Hypertension Current Visit: No Status: Chronic Code(s): I10 - ESSENTIAL (PRIMARY) HYPERTENSION SNOMED Code(s): 79910444 Comment: BP somewhat better with the addition of amlodipine. (8) DVT prophylaxis Current Visit: Yes Status: Acute Code(s): WZI7718 - SNOMED Code(s): 122120140 Comment: Heparin sq and scds (9) Full code status Current Visit: No Status: Acute Code(s): Z78.9 - OTHER SPECIFIED HEALTH STATUS SNOMED Code(s): 522221984
[2016-10-26] MEDS: cefTRIAXone VIAL(*) 1,000 MG in NS 0.9% 50 ML* 50 ML IVPB SCH (19:58)
[2016-10-27] MEDS: Insulin LISPRO* 1 UNITS UNIT SUBCUT SCH ×5 (03:54→20:36)
[2016-10-27] MEDS: HYDROmorphone* 1 MG/ML 1 ML SYR IV PRN ×2 (05:15→19:32)
[2016-10-27] MEDS: Heparin VIAL(*) 5000 UNITS/ML VIAL (FIVE THOUSAND) SUBCUT SCH ×3 (05:16→21:16)
[2016-10-27] MEDS: Diltiazem CD CAP* 240 MG PO SCH (07:43)
[2016-10-27] MEDS: metroNIDAZOLE IV 500 MG/100ML* 500 MG/100 ML BAG IVPB SCH ×2 (07:43→15:33)
[2016-10-27] MEDS: Clopidogrel TAB* 75 MG PO SCH (07:44)
[2016-10-27] MEDS: buPROPion SR TAB.SR* 150 MG PO SCH ×2 (07:44→16:51)
[2016-10-27] MEDS: CMCS: Pantoprazole TAB (NF) 40 MG TAB PO SCH (07:44)
[2016-10-27] MEDS: amLODIPine TAB* 5 MG PO SCH (07:44)
[2016-10-27] MEDS: CMCS: Simvastatin TAB(NF) 20 MG TAB PO SCH (07:44)
[2016-10-27] MEDS: Tiotropium CAP.INH* CAP.INH/18 MCG (USE ORDER SET !) INH SCH (08:46)
[2016-10-27] MEDS: Mometasone/Formoter 200/5 MDI INH SCH ×2 (08:46→20:32)
[2016-10-27] MEDS ORDERED: oxyCODONE TAB* 5 MG TAB PO PRN (10:29)
--- NOTE | 2016-10-27 10:37 | PN ---
Subjective Date of Service: 10/27/16 Interval History: Seen with at bedside Notes from overnight reviewed. [place] BM with patient concerned about blood Had liquid BM this AM after full liquid breakfast Pain continues but dramatically improved since admission No nausea/vomiting Feels bloated Objective Active Medications: Acetaminophen (Tylenol Tab*) 650 mg PO Q6H PRN PRN Reason: FEVER/PAIN Albuterol (Ventolin 2.5 Mg/3 Ml Neb.Abigail*) 2.5 mg INH Q2H PRN PRN Reason: SOB/WHEEZING Last Admin: 10/26/16 19:54 Dose: 2.5 mg Amlodipine Besylate (Norvasc Tab*) 5 mg PO DAILY [facility] Last Admin: 10/27/16 07:44 Dose: 5 mg Bupropion HCl (Wellbutrin Sr Tab*) 150 mg PO BID@0800,1700 [facility] Last Admin: 10/27/16 07:44 Dose: 150 mg Clopidogrel Bisulfate (Plavix Tab*) 75 mg PO DAILY [facility] Last Admin: 10/27/16 07:44 Dose: 75 mg Diltiazem HCl (Cardizem Cd Cap*) 240 mg PO DAILY [facility] Last Admin: 10/27/16 07:43 Dose: 240 mg Heparin Sodium (Porcine) (Heparin Vial(*)) 5,000 units SUBCUT Q8HR [facility] Last Admin: 10/27/16 05:16 Dose: 5,000 units Hydromorphone HCl (Dilaudid Iv*) 0.5 mg IV Q2H PRN PRN Reason: PAIN Last Admin: 10/27/16 05:15 Dose: 0.5 mg Ceftriaxone Sodium 1,000 mg/ (Sodium Chloride) 50 mls @ 200 mls/hr IVPB Q24H [facility] Last Admin: 10/26/16 19:58 Dose: 200 mls/hr Metronidazole/Sodium Chloride (Flagyl 500 Mg Ivpb*) 500 mg in 100 mls @ 100 mls /hr IVPB Q8H [facility] Last Admin: 10/27/16 07:43 Dose: 100 mls/hr Insulin Human Lispro (Humalog*) 0 units SUBCUT Q4H [facility] PRN Reason: Protocol Last Admin: 10/27/16 07:49 Dose: Not Given Lactobacillus Rhamnosus (Culturelle*) 1 cap PO BID [facility] Melatonin (Melatonin (Nf)) 3 mg PO BEDTIME PRN; Protocol PRN Reason: Sleep Mometasone Furoate/Formoterol Fumar (Dulera 200/5 Mdi*) 2 puff INH BID [facility] Last Admin: 10/27/16 08:46 Dose: 2 puff Ondansetron HCl (Zofran Inj*) 4 mg IV Q6H PRN PRN Reason: NAUSEA Last Admin: 10/24/16 08:12 Dose: 4 mg Oxycodone HCl (Roxycodone Tab*) 5 mg PO Q4H PRN PRN Reason: PAIN Pantoprazole Sodium (Protonix Tab (Nf)) 40 mg PO DAILY [facility] Last Admin: 10/27/16 07:44 Dose: 40 mg Simvastatin (Zocor(Nf)) 40 mg PO DAILY [facility] Last Admin: 10/27/16 07:44 Dose: 40 mg Tiotropium [place] (Spiriva Cap.Inh*) 1 cap INH DAILY [facility] Last Admin: 10/27/16 08:46 Dose: 1 cap Vital Signs 10/26/16 10/26/16 10/26/16 11:08 16:01 19:44 Temperature 97.6 F 98.4 F Pulse Rate 67 69 Respiratory 16 18 20 Rate Blood Pressure 138/36 157/49 (mmHg) O2 Sat by Pulse 95 93 Oximetry 10/26/16 10/26/16 10/26/16 20:00 20:08 20:10 Temperature Pulse Rate 73 Respiratory 16 20 Rate Blood Pressure (mmHg) O2 Sat by Pulse 93 93 Oximetry 10/26/16 10/26/16 10/26/16 20:24 20:44 23:20 Temperature 98.4 F 98.4 F Pulse Rate 74 66 Respiratory 20 15 20 Rate Blood Pressure 153/64 156/47 (mmHg) O2 Sat by Pulse 94 94 Oximetry 10/27/16 10/27/16 10/27/16 03:33 05:15 07:24 Temperature 97.8 F 98.3 F Pulse Rate 63 65 Respiratory 16 16 17 Rate Blood Pressure 156/50 154/43 (mmHg) O2 Sat by Pulse 94 96 Oximetry 10/27/16 08:11 Temperature Pulse Rate Respiratory 16 Rate Blood Pressure (mmHg) O2 Sat by Pulse Oximetry Oxygen Devices in Use Now: Nasal Cannula Appearance: walking in room, NAD Eyes: No Scleral Icterus, PERRLA Ears/Nose/Mouth/Throat: Clear Oropharnyx, Mucous Membranes Moist Neck: NL Appearance and Movements; NL JVP, Trachea Midline Respiratory: Symmetrical Chest Expansion and Respiratory Effort, Clear to Auscultation Cardiovascular: RRR, - - 2/6 early peaking SYEDA RUSB radiating to carotids Abdominal: - - soft, mild TTP epigastrum, mild distention, bs, +bruit right lower quadrant Extremities: No Edema Skin: No Rash or Ulcers Neurological: Alert and Oriented x 3 Result Diagrams: 10/25/16 06:59 10/24/16 05:53 Microbiology and Other Data: Microbiology 10/23/16 05:46 Aerobic Blood Culture - Preliminary Blood Venous No Growth Day 1 Anaerobic Blood Culture - Preliminary No Growth Day 1 Assess/Plan/Problems-Billing Assessment: Patient is a 71 year old woman who [place] [facility] [place] pain found with colitis from transverse to descending colon on CT with associated increased lipase - Patient Problems (1) Abdominal pain Comment: Suspect colitis based on CT and not pancreatitis c/w flagyl/cipro. WBC improving, pain improving add PO narcotics and wean IV ischemic possible given known PVD. In setting of anemia evaluate as below Add probiotics (2) Peripheral vascular disease Comment: plavix (3) Anemia Comment: check stool occult blood check CBC now (4) COPD (chronic obstructive pulmonary disease) Code(s): J44.9 - CHRONIC OBSTRUCTIVE PULMONARY DISEASE, UNSPECIFIED SNOMED Code(s): 30440763 Comment: No evidence of acute exacerbation. Cont home medications (5) Hypertension Comment: BP better with the addition of amlodipine. c/w 5 mg (6) Type 2 diabetes mellitus Comment: FS stable. Oral hypoglycemic agents held at this time. Cover with SS Humalog (7) DVT prophylaxis Comment: Heparin sq and scds
[2016-10-27 11:08] LABS: Hematocrit 27 % (35-47); Hemoglobin 8.7 g/dl (12.0-16.0); Mean Corpuscular HGB Conc 33 g/dl (31-36); Mean Corpuscular Hemoglobin 25 pg (27-31); Mean Corpuscular Volume 77 fL (80-97); Mean Platelet Volume 9 um3 (7.4-10.4); Red Blood Count 3.49 10^6/ul (4.0-5.4); Red Cell Distribution Width 16 % (10.5-15); White Blood Count 7.5 10^3/ul (3.5-10.8)
[2016-10-27] MEDS: Albuterol 2.5 MG/3 ML NEB.SOL* (0.083%) INH PRN ×2 (11:24→20:31)
[2016-10-27] MEDS: Lactobacillus Acidophilu (GG)* 1 CAP CAP PO SCH ×2 (12:13→21:16)
[2016-10-27] MEDS: cefTRIAXone VIAL(*) 1,000 MG in NS 0.9% 50 ML* 50 ML IVPB SCH (16:51)
[2016-10-27] MEDS: Ondansetron INJ* 2 MG/ML VIAL IV PRN (19:27)
[2016-10-28] MEDS: Insulin LISPRO* 1 UNITS UNIT SUBCUT SCH ×4 (01:05→12:52)
[2016-10-28] MEDS: metroNIDAZOLE IV 500 MG/100ML* 500 MG/100 ML BAG IVPB SCH ×2 (01:57→08:26)
[2016-10-28] MEDS: Heparin VIAL(*) 5000 UNITS/ML VIAL (FIVE THOUSAND) SUBCUT SCH ×2 (05:20→12:53)
[2016-10-28 05:24] LABS: Hematocrit 27 % (35-47); Hemoglobin 9.1 g/dl (12.0-16.0); Mean Corpuscular HGB Conc 33 g/dl (31-36); Mean Corpuscular Hemoglobin 25 pg (27-31); Mean Corpuscular Volume 77 fL (80-97); Mean Platelet Volume 9 um3 (7.4-10.4); Red Blood Count 3.57 10^6/ul (4.0-5.4); Red Cell Distribution Width 16 % (10.5-15); White Blood Count 6.3 10^3/ul (3.5-10.8)
[2016-10-28 05:43] LABS: BUN/Creatinine Ratio 10.9 (8-20); Calcium 8.7 mg/dL (8.6-10.3); EGFR African American 171.2 (>60); EGFR Non-African American 133.2 (>60); Potassium 3.1 mmol/L (3.5-5.0)
[2016-10-28] MEDS ORDERED: Potassium Chlor TAB* 20 MEQ TAB.ER PO ONE (07:34)
[2016-10-28] MEDS: HYDROmorphone* 1 MG/ML 1 ML SYR IV PRN (08:15)
[2016-10-28] MEDS: Ondansetron INJ* 2 MG/ML VIAL IV PRN (08:15)
[2016-10-28] MEDS: Mometasone/Formoter 200/5 MDI INH SCH (08:28)
[2016-10-28] MEDS: Tiotropium CAP.INH* CAP.INH/18 MCG (USE ORDER SET !) INH SCH (08:28)
[2016-10-28] MEDS: Albuterol 2.5 MG/3 ML NEB.SOL* (0.083%) INH PRN (08:29)
[2016-10-28] MEDS: buPROPion SR TAB.SR* 150 MG PO SCH (09:27)
[2016-10-28] MEDS: Clopidogrel TAB* 75 MG PO SCH (09:27)
[2016-10-28] MEDS: amLODIPine TAB* 5 MG PO SCH (09:27)
[2016-10-28] MEDS: Lactobacillus Acidophilu (GG)* 1 CAP CAP PO SCH (09:27)
[2016-10-28] MEDS: Diltiazem CD CAP* 240 MG PO SCH (09:27)
[2016-10-28] MEDS: CMCS: Simvastatin TAB(NF) 20 MG TAB PO SCH (09:28)
[2016-10-28] MEDS: CMCS: Pantoprazole TAB (NF) 40 MG TAB PO SCH (09:28)
[2016-10-28 13:33] VITALS: BP 148/51
--- NOTE | 2016-10-29 06:12 | DS ---
CC: Dr. Gastelum* DISCHARGE SUMMARY: DATE OF ADMISSION: 10/22/16 DATE OF DISCHARGE: 10/28/16 PRIMARY CARE PROVIDER: Dr. Gastelum. PRIMARY DIAGNOSIS: Colitis, mid transverse colon, descending colon. SECONDARY DIAGNOSES: Include: 1. Type 2 diabetes. 2. Peripheral artery disease, status post aortic stents bilateral, internal iliac and right external iliac stents. 3. Chronic obstructive pulmonary disease with chronic hypoxic respiratory failure. 4. History of upper gastrointestinal bleed. 5. Hypertension. 6. Hyperlipidemia. 7. Anemia. MEDICATIONS ON DISCHARGE: Include: 1. Simvastatin 40 mg daily. 2. Pantoprazole 40 mg daily. 3. Breo Ellipta 100/25 one puff daily. 4. Bumex 1 tab weekly as needed for swelling. 5. Albuterol 2 puffs inhaled twice daily. 6. Spiriva 1 puff daily. 7. Diltiazem CD 240 mg daily. 8. Ventolin nebulizer every 6 hours as needed for shortness of breath. 9. Plavix 75 mg daily. 10. Glipizide 10 mg twice daily. 11. Hydrochlorothiazide 25 mg daily. 12. Lisinopril 10 mg daily. 13. Wellbutrin 150 mg SR 3 times daily. 14. Oxycodone 5 mg every 4 hours as needed for pain, the author dispensed 24 tabs. 15. Bactrim double strength 1 tab twice daily for 5 additional days. 16. Flagyl 500 mg 3 times a day for 5 additional days. 17. Zofran ODT 4 mg every 6 hours as needed for nausea. 18. Acetaminophen 650 mg every 6 hours as needed for pain. PERTINENT IMAGING STUDIES: CT abdomen and pelvis, impression: There are focal inflammatory changes from the midpoint of the transverse colon extending to the proximal descending colon. Potentially, this represents acute diverticulitis or secondary to other infectious or inflammatory etiologies. Due to the patient 's vasculopathy, an ischemic etiology could be considered though the distribution is not characteristic for bowel infarct. Right greater than left adrenal hyperplasia with left adrenal soft tissue nodule that has not changed since January 2016. PERTINENT LABORATORY DATA: Hemoglobin on presentation 13.3, on discharge 9.1, stable for 72 hours prior to discharge; white blood cell count on presentation 21.9 and on discharge 6.3. HISTORY OF PRESENT ILLNESS AND HOSPITAL COURSE: This is a 71-year-old female with the past medical history as outlined in the history of present illness, on the day of admission presented to the hospital with abdominal pain, nausea, vomiting, and diarrhea. CT of the abdomen and pelvis as indicated above, findings of segmental colitis from the midpoint of the transverse colon to the descending colon. The patient was found with elevated leukocytosis indicative of potentially infectious etiology, although no organism was identified. The patient's hemoglobin was noted to down trend during the course of the hospital stay with a positive stool guaiac; however, no torrie blood. She required no transfusions. She was treated with ceftriaxone and Flagyl while in the hospital stay with improvement of her leukocytosis. She remained afebrile during the course of the hospital stay. Her abdominal pain improved and she was able to tolerate food. Of note, she did have an elevated lipase, maximum value of 1674, and was thought to possibly represent an element of pancreatitis ; however, this author's opinion is likely inflammation of the pancreas secondary to its proximity to inflamed colon, not pancreatitis. The patient improved while she advanced her diet arguing against pancreatitis. On the day of discharge, the patient was tolerating cream of wheat soups, clear liquids, and all of her medications. She felt comfortable returning home. FOLLOWUP INSTRUCTIONS: At followup, please: 1. Evaluate for continued stability and improvement on continued antibiotics. 2. Evaluate for continued stability of blood pressure after restarted on home medications. 3. As evidenced above, adrenal hyperplasia was stable since January, follow up if clinically indicated. Reasons to return to the hospital included but not limited to recurrent or worsening symptoms including chest pain, shortness of breath, nausea, vomiting, lightheadedness, loss of consciousness, bleeding from any source, abdominal pain , inability to obtain or tolerate medications were discussed with the patient and her , they acknowledged understanding. TIME SPENT: Greater than 60 minutes was spent on the discharge of this patient , greater than half was spent [id number] with the patient and her . [id number]/[facility] #: [id number] MELITON
== END 2016-10-28 13:45 | disposition home or self-care (01) | DRG 392 ==
LOC: ED 22:03 → MED 10-23 04:11
PROVIDERS: ADMIT Hospitalist; ATTEND Internal Medicine
DX: K52.9 Noninfective gastroenteritis and colitis, unspecified (principal); N17.9 Acute kidney failure, unspecified; J96.11 Chronic respiratory failure with hypoxia; Z99.81 Dependence on supplemental oxygen; E11.9 Type 2 diabetes mellitus without complications; I10 Essential (primary) hypertension; D64.9 Anemia, unspecified; J44.9 Chronic obstructive pulmonary disease, unspecified; F32.9 Major depressive disorder, single episode, unspecified; F41.9 Anxiety disorder, unspecified; K21.9 Gastro-esophageal reflux disease without esophagitis; I73.9 Peripheral vascular disease, unspecified; E78.5 Hyperlipidemia, unspecified; K57.90 Diverticulosis of intestine, part unspecified, without perforation or abscess without bleeding; Z88.3 Allergy status to other anti-infective agents; Z88.0 Allergy status to penicillin; Z87.891 Personal history of nicotine dependence; Z80.0 Family history of malignant neoplasm of digestive organs
CPT/HCPCS: 36415; 71020; 74177; 76700; 80048; 80053; 81003; 81015; 82272; 83036; 83605; 83615; 83690; 83735; 85025; 86140; 87040; 94640; 94760; A9270-GY; J0696; J1170; J1644; J2185; J2270; J2405; Q9967

== ENCOUNTER 2016-12-10 22:07 | Inpatient (IN) | payer MEDICARE ==
[2016-12-10 23:15] LABS: Hematocrit 41 % (35-47); Hemoglobin 12.9 g/dl (12.0-16.0); Mean Corpuscular HGB Conc 32 g/dl (31-36); Mean Corpuscular Hemoglobin 25 pg (27-31); Mean Corpuscular Volume 78 fL (80-97); Mean Platelet Volume 9 um3 (7.4-10.4); Red Blood Count 5.24 10^6/ul (4.0-5.4); Red Cell Distribution Width 17 % (10.5-15)
[2016-12-10 23:29] LABS: Albumin 4.4 g/dL (3.2-5.2); BUN/Creatinine Ratio 28.1 (8-20); Calcium 10.1 mg/dL (8.6-10.3); EGFR African American 56.1 (>60); EGFR Non-African American 43.6 (>60); Globulin 3.2 g/dL (2-4); Total Bilirubin 0.4 mg/dL (0.2-1.0); Total Protein 7.6 g/dL (6.4-8.9)
[2016-12-10] MEDS ORDERED: NS 0.9% 1000 ML* 1,000 ML IV ONE (23:30)
[2016-12-10] MEDS ORDERED: HYDROmorphone INJ* 1 MG/ML CARPUJECT SYRINGE IV SLOW PU ONE (23:31)
[2016-12-10] MEDS ORDERED: metroNIDAZOLE IV 500 MG/100ML* 500 MG/100 ML BAG IVPB ONE (23:37)
[2016-12-10] MEDS ORDERED: cefTRIAXone VIAL(*) 1,000 MG in NS 0.9% 50 ML* 50 ML IVPB ONE (23:40)
[2016-12-10] MEDS ORDERED: Ondansetron INJ* 2 MG/ML VIAL IV ONE (23:41)
[2016-12-10] MEDS ORDERED: Iodixanol* (CONTRAST) 320 MG/ML 100 ML SDV IV ONE (23:41)
[2016-12-10] MEDS ORDERED: Ondansetron INJ* 2 MG/ML VIAL ONE (23:42)
[2016-12-11] MEDS ORDERED: cefTRIAXone(*) 1 GM ADVAN ONE (00:18)
[2016-12-11] MEDS ORDERED: PROCHLORPERAZINE INJ 5 MG/ML 2 ML VIAL IV PRN (00:48)
[2016-12-11] MEDS ORDERED: Morphine INJ* 4 MG/ML 1 ML CARPUJECT IV PRN (00:48)
[2016-12-11 00:50] LABS: Potassium 5.4 mmol/L (3.5-5.0)
[2016-12-11] MEDS ORDERED: Albuterol HFA INHALER* 8 gm MDI INH PRN (00:59)
[2016-12-11] MEDS ORDERED: Lisinopril TAB* 10 MG PO ONE (01:00)
[2016-12-11] MEDS ORDERED: Diltiazem CD CAP* 240 MG PO ONE (01:01)
[2016-12-11] MEDS ORDERED: Dextrose 50% Syringe 50 ML* 25 GM/50 ML SYRINGE IV PUSH PRN (01:08)
[2016-12-11 02:37] LABS: C Reactive Protein 38.22 mg/L (< 5.00)
--- NOTE | 2016-12-11 02:50 | HP ---
CC: Dr. Gastelum * HISTORY AND PHYSICAL: DATE OF ADMISSION: 12/11/16 PRIMARY CARE PROVIDER: Dr. Gastelum. CHIEF COMPLAINT: Nausea, vomiting, diarrhea, and abdominal pain. HISTORY OF PRESENT ILLNESS: Ms. Barger is a 71-year-old female who has a history of type 2 diabetes, peripheral arterial disease, COPD on O2 with sleep, hypertension, hyperlipidemia, and recent admission in September 2016 for transverse and descending colitis, who presented to the emergency room with complaints of nausea, vomiting, diarrhea, and abdominal pain. The patient states that following her last hospitalization, everything seemed to get back to normal. At approximately 8 a.m. on the morning prior to admission, she began to have abdominal pain and vomiting. The patient states that every time she tried to drink something 15 to 20 minutes later, she vomited that back up. At approximately 5 p.m., she began to have diarrhea. She has had 3 episodes of diarrhea. She does admit to chills but denies fever. She describes having upper abdominal/chest pain. It does not radiate to her back. She denies any recent antibiotics outside of what she received for her prior diagnosis of colitis. The patient states this feels very similar to when she was admitted with colitis just in September. PAST MEDICAL HISTORY: 1. Type 2 diabetes. 2. Peripheral arterial disease, status post aortic stent, bilateral internal iliac stents and right external iliac stent. 3. COPD with chronic hypoxic respiratory failure, on O2 at night. 4. Hypertension. 5. Hyperlipidemia. 6. Chronic anemia. MEDICATIONS: 1. Glipizide ER 10 mg p.o. b.i.d. 2. Bupropion ER 150 mg p.o. t.i.d. 3. Hydrochlorothiazide 25 mg p.o. daily. 4. Protonix 40 mg p.o. daily. 5. Plavix 75 mg p.o. daily. 6. Albuterol 1 neb inhaled q.6 hours p.r.n. shortness of breath. 7. Breo Ellipta 1 puff inhaled daily. 8. Simvastatin 40 mg p.o. q.h.s. 9. Lisinopril 10 mg p.o. q.h.s. 10. Diltiazem CD 240 mg p.o. q.h.s. 11. Spiriva 1 puff inhaled q.h.s. 12. Bumex 1 mg p.o. daily p.r.n. swelling. 13. Albuterol HFA 2 puffs inhaled q.4 hours p.r.n. shortness of breath. ALLERGIES: AZITHROMYCIN, LEVAQUIN, PENICILLIN, and LIPITOR. FAMILY HISTORY: Mom in her 60s of lung cancer. Father in his 40s of colon cancer. SOCIAL HISTORY: The patient is a former smoker, she quit in 2014. She drinks alcohol rarely. She is . Her , Triston Barger, phone [phone] is her healthcare proxy. REVIEW OF SYSTEMS: The patient denies any fevers, but admits to chills as above. The day prior to admission, the patient's appetite had been fine; however , her appetite was very poor on the day prior to admission. No palpitations. She does state that the pain in the upper abdomen seemed to radiate to her chest. At one point, she did have discomfort into her jaw. She has no cough or shortness of breath. She admits to abdominal pain, nausea, vomiting, and diarrhea as above. She denies any hematochezia and denies any black stools. No hematuria, no dysuria. No focal weakness or sensory loss. No sudden changes in vision. No dysphagia. She does complain of chronic back pain, it is unchanged. No rashes. She admits to anxiety and depression. PHYSICAL EXAMINATION GENERAL: The patient is a well-developed elderly female, sitting up in the stretcher, in no acute distress. VITAL SIGNS: Blood pressure 206/58, pulse 74, respirations 16, temp 97.4, O2 sat 97% on 2 L. HEENT: Pupils are equal. They are round. They react to light. Extraocular muscles are intact. Oropharynx is clear. Oral mucosa is moist. There is no submandibular, cervical or supraclavicular adenopathy. Thyroid is not enlarged. No thyroid nodules are noted. PULMONARY: Lungs are clear to auscultation anteriorly. CARDIAC: Normal S1 and S2. Regular rate and rhythm. I do not appreciate any murmurs. ABDOMEN: Bowel sounds are present, though markedly hypoactive. Abdomen is soft , slightly distended and tympanic to percussion. She is diffusely tender with the bulk of pain in the bilateral upper quadrants. She has mild tenderness to the left lower quadrant. MUSCULOSKELETAL: There is no cyanosis or clubbing in the digits. There is full active range of motion of all 4 extremities. SKIN: Warm and dry. I do not appreciate any rashes. NEUROLOGIC: Cranial nerves II through XII are grossly intact. Sensation is intact to light touch throughout. Strength is 5/5 and symmetric in both upper and lower extremities bilaterally. PSYCH: The patient is alert. She is oriented x3. Affect appears appropriate. DIAGNOSTIC STUDIES/LAB DATA: WBC 21.0, hemoglobin 12.9, hematocrit 41, platelets 334,000. Sodium 133, potassium 5.4, chloride 95, CO2 25, BUN 34, creatinine 1.21, glucose 367, lactic acid 1.7, calcium 10.1, bilirubin 0.4, AST 9, ALT 10, alk phos 98. Albumin 4.4, lipase 1485. EKG reveals normal normal sinus rhythm without any acute ST-T wave abnormalities. Chest x-ray clear to my interpretation. CT abdomen and pelvis reveals thickening in the left-sided colon with haziness and the surrounding retroperitoneal and mesenteric fat. Peripancreatic stranding is also noted. ASSESSMENT AND PLAN: Ms. Barger is a 71-year-old female recently hospitalized in September 2016 where she was diagnosed with transverse and descending colon colitis where she received antibiotic therapy and ultimately resolved. The patient also had elevated lipase level concerning for pancreatitis, though it was also questionable if the elevated lipase was perhaps related to the severe inflammation noted of the transverse colon. 1. Descending colon colitis: The etiology of this is not clear. This appears to be almost an identical presentation as the last time. The patient did seem to improve with antibiotic therapy. However, no clear infectious source was identified. I will go ahead and send off stool culture and stool for C. diff. She will be treated with ceftriaxone IV and Flagyl orally. It is possible that this could be ischemic in nature given her marked peripheral arterial disease and plaquing noted within the aorta. The patient will need to be monitored closely for improvement in her nausea, vomiting, diarrhea, and abdominal pain. Followup CBC will be obtained tomorrow morning. 2. Elevated lipase: The patient's abdominal pain seems to be somewhat consistent with pancreatitis. During her last hospitalization, the patient's lipase was elevated to the same degree. This did trend down over the course of her hospitalization. We will give her IV fluids and clear liquid diet. Pain control will be achieved with IV morphine. 3. Hyperkalemia: I suspect this may be related to volume depletion. The patient is going to be receiving IV fluids at 100 mL/hr in addition to what she already received in the emergency room. A followup BMP will be obtained tomorrow morning. 4. Acute kidney injury: The patient's baseline creatinine is around 0.6 to 0.9. Her creatinine on presentation today is elevated at 1.21. She will receive IV fluids as above and a followup BMP tomorrow. I suspect the acute kidney injury is secondary to volume depletion. 5. Type 2 diabetes: The patient's oral hyperglycemics will be held for now. She will be placed on a lispro sliding scale. 6. Peripheral arterial disease: The patient will be maintained on her usual dose of Plavix. 7. Chronic obstructive pulmonary disease: There are no signs of exacerbation at this point. She will be maintained on the usual inhaler nebulizer regimen along with supplemental oxygen as needed. 8. Hypertension: Currently, the patient's blood pressure is markedly elevated ; however, I did not believe that she took her evening medications. We will confirm this with her and if she has not taken her evening blood pressure medications, they will be given now. 9. Hyperlipidemia: We continue her usual dose of simvastatin. 10. DVT prophylaxis: According to the Adult Thrombosis Prophylaxis Risk Factor Assessment Guide, the patient has a total risk factor score of 3, making her high risk. She will be placed on heparin 5000 units subcutaneous q.8 hours. 11. Code status is full and again the patient indicates that her , Triston , is her healthcare proxy. TIME SPENT: Sixty five minutes was spent admitting this patient. [id number]/[facility] #: [id number] MELITON
[2016-12-11] MEDS: hydrALAZINE IV* 20 MG/ML VIAL IV SLOW PU PRN (03:00)
[2016-12-11] MEDS: Heparin VIAL(*) 5000 UNITS/ML VIAL (FIVE THOUSAND) SUBCUT SCH ×3 (06:30→20:31)
--- NOTE | 2016-12-11 07:45 | RAD ---
INDICATION: Chest pain. COMPARISON: Comparison is made with a prior chest x-ray study from October 23, 2016. TECHNIQUE: A portable view of the chest was obtained. FINDINGS: Cardiac and mediastinal contours appear to be within normal limits. The lungs are underinflated. There are small bibasilar infiltrates. No pleural effusion is seen. IMPRESSION: SMALL BIBASILAR INFILTRATES SUGGESTIVE OF ATELECTASIS LESS LIKELY PNEUMONIA.
[2016-12-11] MEDS: NS 0.9% 1000 ML* 1,000 ML IV SCH ×2 (07:52→18:51)
--- NOTE | 2016-12-11 08:04 | RAD ---
INDICATION: Abdominal pain, history of colitis. COMPARISON: Comparison is made with a prior CT of the abdomen and pelvis from October 23, 2016. Correlation is also made with a prior CT angiogram of the chest from February 04, 2016. TECHNIQUE: A CT scan of the abdomen and pelvis was performed with intravenous and oral contrast following intravenous injection of 81 ml of Visipaque 320 nonionic contrast. Contiguous axial sections were obtained from the lung bases through the symphysis pubis. Images were reconstructed in the coronal and sagittal planes. FINDINGS: The lung bases are clear. No pleural effusion is present. The liver and spleen appear normal in size. No focal hepatic abnormality is seen. There is an enhancing nodule present in the superior portion of the spleen measuring 1.3 x 1.5 cm in size not well seen on the prior study. There are gallstones present. No gallbladder wall thickening is noted. The pancreas is normal in size. There is mild stranding in the adjacent peripancreatic fat suggesting the possibility of pancreatitis. No pancreatic ductal distention is seen. The adrenal glands are enlarged suggestive of adrenal gland hyperplasia. There is a nodule in the left adrenal gland measuring 1 cm in size which is unchanged from the prior studies. The kidneys are normal in size. There are multiple bilateral renal cysts. There is a slightly more hyperdense nodule arising from the lateral aspect of the left mid kidney which is unchanged likely representing a hyperdense complex cyst measuring 1.2 cm in size. There is also a more solid-appearing nodule present in the posterior aspect of the left kidney arising from the midportion of the kidney measuring 1.1 cm in size possibly representing a solid nodule. This is unchanged from the prior study. No renal calculi or hydronephrosis is seen. The aorta is normal in caliber with severe calcific plaque present. No significant enlarged retroperitoneal lymph nodes are seen. The stomach, small and large bowel appear nondistended. The appendix is not well visualized. There is circumferential thickening of the wall of the distal transverse and descending colon similar although less prominent than on the prior exam the most consistent with colitis. There is moderate sigmoid diverticulosis without evidence for diverticulitis. The uterus is normal in size and anteverted in position. There appear to be small calcified fibroids. There is a trace amount of free intraperitoneal fluid in the left paracolic gutter. No free to peritoneal air is seen. There is a mild compression fracture of the superior endplate of the L4 vertebral body which is unchanged from the prior study. The results of this exam were called to the emergency department charge nurse Leo. IMPRESSION: 1. FINDINGS MOST CONSISTENT WITH COLITIS DIFFERENTIAL DIAGNOSIS WOULD INCLUDE INFECTIOUS, PSEUDOMEMBRANOUS, INFLAMMATORY OR LESS LIKELY ISCHEMIC ETIOLOGIES. 2. MILD PERIPANCREATIC STRANDING SUGGESTING THE POSSIBILITY OF PANCREATITIS. RECOMMEND CLINICAL CORRELATION. 3. CHOLELITHIASIS. 4. MULTIPLE RENAL CYSTS AND PROBABLE COMPLEX CYST. IN ADDITION THERE IS A MORE SOLID APPEARING NODULE IN THE LEFT KIDNEY. RECOMMEND AN MRI OF THE KIDNEYS WITHOUT AND WITH CONTRAST. 5. LEFT ADRENAL NODULE. THIS CAN ALSO BE EVALUATED WITH AN MRI STUDY PREVIOUSLY NOTED. 6. ENHANCING NODULE WITHIN THE SPLEEN, NONSPECIFIC ALTHOUGH LIKELY INCIDENTAL.
[2016-12-11] MEDS: Insulin LISPRO* 1 UNITS UNIT SUBCUT SCH ×4 (08:47→21:13)
[2016-12-11] MEDS: metroNIDAZOLE TAB* 250 MG PO SCH ×2 (08:47→20:32)
[2016-12-11] MEDS: buPROPion SR TAB.SR* 150 MG PO SCH ×3 (08:47→20:32)
[2016-12-11] MEDS: Clopidogrel TAB* 75 MG PO SCH (08:47)
[2016-12-11] MEDS: Diltiazem CD CAP* 240 MG PO SCH (08:48)
[2016-12-11] MEDS ORDERED: Influenza VAC *QUAD* 2017-18* 0.5 ML SYRINGE IM ONE (09:00)
[2016-12-11] MEDS ORDERED: CMCS: Pantoprazole TAB (NF) 40 MG TAB PO SCH (09:00)
[2016-12-11] MEDS: MDI INH SCH (09:29)
[2016-12-11] MEDS: VILANTEROL MDI INH SCH (09:29)
[2016-12-11] MEDS: FLUTICASONE INH SCH (09:29)
--- NOTE | 2016-12-11 10:57 | PN ---
Subjective Date of Service: 12/11/16 Interval History: Upper abd pain sl better today. Not humgry. No BM since admission. Objective Active Medications: Acetaminophen (Tylenol Tab*) 650 mg PO Q4H PRN PRN Reason: pain Albuterol (Ventolin 2.5 Mg/3 Ml Neb.Abigail*) 2.5 mg INH Q6H PRN PRN Reason: SOB/WHEEZING Albuterol (Ventolin Hfa Inhaler*) 2 puff INH Q4H PRN PRN Reason: SOB/WHEEZING Bupropion HCl (Wellbutrin Sr Tab*) 150 mg PO TID [facility] Last Admin: 12/11/16 08:47 Dose: 150 mg Clopidogrel Bisulfate (Plavix Tab*) 75 mg PO DAILY [facility] Last Admin: 12/11/16 08:47 Dose: 75 mg Device (Tiotropium Inhaler Device*) 1 each INH 2100 ONE Stop: 12/11/16 21:01 Dextrose (D50w Syringe 50 Ml*) 12.5 gm IV PUSH .FOR FS < 60 - SS PRN PRN Reason: FS < 60 Diltiazem HCl (Cardizem Cd Cap*) 240 mg PO DAILY [facility] Last Admin: 12/11/16 08:48 Dose: 240 mg Fluticasone/Vilanterol (Breo Ellipta Mdi 100/25(Nf)) 1 puff INH DAILY [facility] Last Admin: 12/11/16 09:29 Dose: Not Given Heparin Sodium (Porcine) (Heparin Vial(*)) 5,000 units SUBCUT Q8HR [facility] Last Admin: 12/11/16 06:30 Dose: 5,000 units Hydralazine HCl (Apresoline Iv*) 5 mg IV SLOW PU Q6H PRN PRN Reason: SBP>170 Last Admin: 12/11/16 03:00 Dose: 5 mg Sodium Chloride (Ns 0.9% 1000 Ml*) 1,000 mls @ 100 mls/hr IV PER RATE [facility] Last Admin: 12/11/16 07:52 Dose: 100 mls/hr Ceftriaxone Sodium 1,000 mg/ (Sodium Chloride) 50 mls @ 200 mls/hr IVPB Q24H [facility] Insulin Human Lispro (Humalog*) 0 units SUBCUT ACHS JYOTHI PRN Reason: Protocol Last Admin: 12/11/16 08:47 Dose: 4 units Lisinopril (Prinivil Tab*) 10 mg PO BEDTIME [facility] Metronidazole (Flagyl Tab*) 500 mg PO BID [facility] Last Admin: 12/11/16 08:47 Dose: 500 mg Morphine Sulfate (Morphine Inj (Syringe)*) 2 mg IV Q3H PRN PRN Reason: PAIN Ondansetron HCl (Zofran Inj*) 4 mg IV Q6H PRN PRN Reason: NAUSEA Pantoprazole Sodium (Protonix Tab (Nf)) 40 mg PO DAILY [facility] Last Admin: 12/11/16 08:47 Dose: 40 mg Prochlorperazine Edisylate (Compazine Inj*) 10 mg IV Q6H PRN PRN Reason: NAUSEA/VOMITING Last Admin: 12/11/16 01:17 Dose: 10 mg Simvastatin (Zocor(Nf)) 40 mg PO BEDTIME [facility] Tiotropium [place] (Spiriva Cap.Inh*) 1 cap INH BEDTIME [facility] Vital Signs 12/11/16 12/11/16 12/11/16 01:00 01:02 01:09 Temperature 98 F Pulse Rate 75 75 78 Respiratory 16 Rate Blood Pressure 203/59 190/65 (mmHg) O2 Sat by Pulse 96 97 97 Oximetry 12/11/16 12/11/16 07:38 07:53 Temperature 98.6 F Pulse Rate 80 Respiratory 20 20 Rate Blood Pressure 114/57 (mmHg) O2 Sat by Pulse 94 Oximetry Oxygen Devices in Use Now: Nasal Cannula Appearance: Alert, partly up in bed. In good spirits. Looks comfortable at rest. Eyes: No Scleral Icterus Ears/Nose/Mouth/Throat: Clear Oropharnyx, Mucous Membranes Moist Neck: NL Appearance and Movements; NL JVP, No Thyroid Enlargement, Masses Respiratory: Symmetrical Chest Expansion and Respiratory Effort, Clear to Auscultation, Clear to Percussion Cardiovascular: NL Sounds; No Murmurs; No JVD, RRR, No Edema, - Abdominal: No Hepatosplenomegaly, - - mod-severe epigastric tenderness. Some BS. Soft. Extremities: No Edema, No Clubbing, Cyanosis, - Skin: No Rash or Ulcers, No Nodules or Sclerosis, - Neurological: Alert and Oriented x 3, NL Sensation Result Diagrams: 12/10/16 23:00 12/10/16 23:00 Assess/Plan/Problems-Billing Assessment: - Patient Problems (1) Pancreatitis Current Visit: No Status: Acute Code(s): K85.90 - ACUTE PANCREATITIS WITHOUT NECROSIS OR INFECTION, UNSP SNOMED Code(s): 59907203 Comment: Continue clear liquids, reduce analgesic dose at pt request (made her too sleepy). US GB ordered. Dr. Mendez to consult. CMP,CBC, lipase 12/12. (2) COPD (chronic obstructive pulmonary disease) Current Visit: No Status: Chronic Code(s): J44.9 - CHRONIC OBSTRUCTIVE PULMONARY DISEASE, UNSPECIFIED SNOMED Code(s): 30200241 Comment: No evidence of acute exacerbation. Cont home medications Quit smoking 11/2014. Uses O2 at home. (3) Type 2 diabetes mellitus Current Visit: No Status: Acute Comment: Glipizide held at this time. Continue Lispro by SS. (4) GERD (gastroesophageal reflux disease) Current Visit: No Status: Acute Code(s): K21.9 - GASTRO-ESOPHAGEAL REFLUX DISEASE WITHOUT ESOPHAGITIS SNOMED Code(s): 784305508 Comment: IV pantorpazole ordered.
[2016-12-11] MEDS: Morphine INJ* 2 MG/ML 1 ML SYRINGE (TWO MG - NEW SYRINGE VERSION) IV PRN ×2 (12:21→23:47)
[2016-12-11] MEDS: Pantoprazole IV* 40 MG IV SCH (12:21)
[2016-12-11] MEDS: Ondansetron INJ* 2 MG/ML VIAL IV PRN (12:34)
[2016-12-11 12:40] LABS: BUN/Creatinine Ratio 34.6 (8-20); Calcium 8.7 mg/dL (8.6-10.3); EGFR African American 89.1 (>60); EGFR Non-African American 69.3 (>60); Potassium 4.3 mmol/L (3.5-5.0)
--- NOTE | 2016-12-11 15:05 | RAD ---
INDICATION: Pancreatitis. COMPARISON: Comparison is made with a prior right upper quadrant ultrasound from October 26, [address] of the abdomen and pelvis from December 10, 2016. TECHNIQUE: Multiple real-time images of the right upper quadrant were obtained. FINDINGS: There are multiple gallstones present. No gallbladder wall thickening is seen. There is a small amount of free intraperitoneal fluid adjacent to the liver and gallbladder. No intra or extrahepatic ductal distention is seen. The common bile duct measured 0.6 cm in diameter. The liver is mildly enlarged without significant focal abnormality. The pancreas is partially obscured by overlying bowel gas. The visualized portion of the body and tail appears slightly prominent consistent with the patient's history of pancreatitis. There is minimal pancreatic ductal distention. The right kidney is normal in size. No hydronephrosis is present. There is a small 1.3 x 0.9 x 1.1 cm cyst. IMPRESSION: 1. CHOLELITHIASIS WITHOUT SPECIFIC EVIDENCE FOR ACUTE CHOLECYSTITIS. 2. SMALL AMOUNT OF FREE INTRAPERITONEAL FLUID. 3. MILDLY PROMINENT PANCREAS CONSISTENT WITH THE PATIENT'S HISTORY OF PANCREATITIS.
[2016-12-11] MEDS ORDERED: Benzocaine/Menthol LOZ* 1 LOZENGE PO PRN (16:50)
[2016-12-11] MEDS: Benzonatate CAP* 100 MG PO PRN (17:06)
[2016-12-11] MEDS: Albuterol 2.5 MG/3 ML NEB.SOL* (0.083%) INH PRN (17:33)
[2016-12-11] MEDS: Acetaminophen TAB* 325 MG PO PRN (18:53)
[2016-12-11] MEDS: Tiotropium CAP.INH* CAP.INH/18 MCG (USE ORDER SET !) INH SCH (19:42)
[2016-12-11] MEDS: Lisinopril TAB* 10 MG PO SCH (20:32)
[2016-12-11] MEDS ORDERED: Spiriva Inhaler DEVICE* 1 EACH DEVICE INH ONE (21:00)
--- NOTE | 2016-12-11 22:09 | CONS ---
CONSULTATION REPORT: DATE OF CONSULT: 12/11/16 PATIENT OF: Sherly CarlDO REFERRED TO: Estrada Mendez MD (DICTATED BY MARIAN FRAZIER) REASON FOR CONSULTATION: Abdominal pain and concern for gallstone pancreatitis. HISTORY OF PRESENT ILLNESS: Ms. Barger is a pleasant 71-year-old female who was admitted to the hospital earlier this morning with what appeared to be worsening abdominal pain. She presented to the emergency room with complaints of nausea, vomiting, diarrhea and worsening upper abdominal pain that started approximately 2 days ago. She describes it as an intermittent sharp, upper abdominal pain with associated nausea and vomiting that she had similar complaints of back in September of this year. She apparently was hospitalized a few weeks ago with similar symptoms and was found to have a combination of both descending/transverse colitis as well as pancreatitis. She was n.p.o. for a while and was covered empirically on antibiotics and eventually got better; however, the source of her pancreatitis remained unclear at that time. She had colonoscopy done a few weeks prior to that episode and she tells me that she only had a couple of polyps removed. She denied any fever, chills, changes in bowel habits or in the color of stool or urine. She had a CT scan of the abdomen and pelvis that revealed evidence of pancreatitis again with adjacent colitis to the transverse and descending colon. She also had a right upper quadrant ultrasound that revealed evidence of cholelithiasis without any findings of acute cholecystitis or CBD dilatation. Given her episodes of her abdominal pain and recurrent pancreatitis with the findings of cholelithiasis on the ultrasound, we were asked to see the patient for further evaluation of possible gallstone pancreatitis. PAST MEDICAL HISTORY: Remarkable for type 2 diabetes mellitus, peripheral arterial disease, status post aortic stent as well as bilateral internal iliac stents and right external iliac stent. She also has a history of COPD with chronic hypoxic respiratory failure for which she is on O2 at home at night. She also has a history of hypertension, hyperlipidemia, and chronic anemia. PAST SURGICAL HISTORY: Significant for multiple vascular stent placements at [facility] a few years ago. MEDICATIONS: Her current medications at home include: 1. Glipizide ER 10 mg p.o. b.i.d. 2. Bupropion ER 150 mg p.o. t.i.d. 3. Hydrochlorothiazide 25 mg p.o. daily. 4. Protonix 40 mg p.o. daily. 5. Plavix 75 mg p.o. daily. 6. Albuterol nebulizer q.6 hours p.r.n. for shortness of breath. 7. Breo Ellipta 1 puff inhaled daily. 8. Simvastatin 40 mg p.o. q.h.s. 9. Lisinopril 10 mg p.o. q.h.s. 10. Diltiazem CD 240 mg p.o. q.h.s. 11. Spiriva 1 puff q.h.s. 12. Bumex 1 mg p.o. daily p.r.n. for swelling. 13. Albuterol 2 puffs HFA inhaled q.4 hours p.r.n. for shortness of breath. ALLERGIES: She is allergic to LEVAQUIN, PENICILLIN, LIPITOR and AZITHROMYCIN. FAMILY HISTORY: Father of colon cancer in his 40s and mother in her 60s from lung cancer. SOCIAL HISTORY: The patient is a former smoker. She quit 2 years ago. She drinks alcohol rarely. She is and she is retired. REVIEW OF SYSTEMS: See HPI, otherwise negative. PHYSICAL EXAM: General: She is a pleasant, healthy appearing, elderly female , in no acute distress or discomfort at the time of consultation. Vital Signs: Most recent set of vitals revealed temperature of 98.3, pulse of 71, O2 sat 99 % on room air, blood pressure 168/51. HEENT: Sclerae anicteric. PERRLA. EOMs intact. Oropharynx is pink and moist with no exudate. Heart: Regular rate and rhythm. Normal S1 and S2 without rubs, murmurs or gallops. Lungs: Clear to auscultation bilaterally. Back with normal curvature. No CVA tenderness. Breast exam deferred at this time. Abdomen: Soft and nondistended. There is mild to moderate epigastric right upper and left upper quadrant tenderness noted. There is no guarding, rigidity, or rebound tenderness. Nation sign was negative. No hernias, masses or hepatosplenomegaly. Extremities without cyanosis, clubbing or edema. Neurologic : Grossly intact. Rectal exam deferred at this time. DIAGNOSTIC STUDIES/LAB DATA: [place] [address] last night, hemoglobin 12.9, hematocrit of 41, platelets of 334. Her chemistry showed normal LFTs with total bili of 0.4, alk phos 98, sodium 133, potassium 5.4, CO2 25, chloride 104, creatinine 0.8, and BUN of 28. Her lipase was 1485. Accessory diagnostic data: As mentioned above, CT scan of the abdomen and pelvis earlier this morning revealed evidence consistent with colitis with adjacent mild pancreatitis as well as cholelithiasis and multiple benign- appearing renal cysts. She had a followup gallbladder ultrasound that revealed evidence of cholelithiasis, but no evidence of cholecystitis or CBD dilatation. IMPRESSION: A 71-year-old female, who was admitted with upper abdominal pain and recurrent pancreatitis with findings of gallstones with high suspicion for gallstone pancreatitis. PLAN: I agree with medical management. At this point, we will keep her n.p.o. , likely to start on sips of clear liquid when her nausea and vomiting subsides. Symptomatic management of her pain and nausea as well as repeat laboratory workup to document biochemical resolution of her pancreatitis. I went on and discussed with her and her family the possible etiology of her pancreatitis. Also her recurrent colitis adjacent to her pancreas might be related to her symptoms; however, the findings of cholelithiasis raised the suspicion of the possibility of gallstones pancreatitis that accounts for her recurrent episodes. She appears to be stable clinically at this time and we will await the biochemical resolution of her pancreatitis and likely to go forward with an elective cholecystectomy in the next few days during her admission. I discussed the case with Dr. Mendez, who agreed to plans and will follow her up accordingly. Thank you for this consultation. MARIAN FRAZIER [id number]/[facility] #: [id number] MELITON
[2016-12-11] MEDS ORDERED: cefTRIAXone VIAL(*) 1,000 MG in NS 0.9% 50 ML* 50 ML IVPB SCH (23:00)
[2016-12-11] MEDS: CMCS: Simvastatin TAB(NF) 20 MG TAB PO SCH (23:01)
--- NOTE | 2016-12-12 00:34 | ED ---
Néstor Tolbert Angela, scribed for Shadia Agarwal MD on 12/10/16 at 2329 . Abdominal Pain/Female - HPI Summary HPI Summary: This pt is a 71 y/o female presenting to [facility] c/o abd pain, nausea, and vomiting since this morning. Pt has a history of colitis and reports these symptoms feel like colitis. She states that she had been more SOB, more than at baseline. Pt additionally c/o diarrhea, headache, chills, and chest pain. Pt notes she bruises easily. She denies ear ache, back pain, dysuria, hematuria, bloody stools. Pt is currently being treated for depression but denies SI. She reports she bruises easily. PMHx: colitis, COPD, diabetes. Pt states she is on home oxygen at night. - History of Current Complaint Chief Complaint: EDAbdPain Stated Complaint: VOMITING Hx Obtained From: Patient Onset/Duration: Lasting Hours Timing: Hours Pain Intensity: 7 Pain Scale Used: 0-10 Numeric Location: Diffuse Radiates: No Aggravating Factor(s): Nothing Associated Signs and Symptoms: Positive: Chest Pain, Nausea, Vomiting, Diarrhea , Other: - SOB, headache, chills. Negative: Fever, Back Pain Allergies/Adverse Reactions: Allergies Allergy/AdvReac Type Severity Reaction Status Date / Time Azithromycin [From Zithromax] Allergy Mild Hives Verified 12/10/16 22:12 Levofloxacin [From Levaquin] Allergy Mild Hives Verified 12/10/16 22:12 Penicillins Allergy Mild Hives Verified 12/10/16 22:12 Atorvastatin AdvReac Mild Diarrhea Verified 12/10/16 22:12 Home Medications: Home Medications Glipizide [Glipizide ER] 10 mg PO BID 12/11/16 [History Confirmed 12/11/16] PMH/Surg Hx/FS Hx/Imm Hx Endocrine/Hematology History: Reports: Hx Blood Disorders, Hx Diabetes, Hx Anemia Denies: Hx Thyroid Disease Cardiovascular History: Reports: Hx Hypertension - ON MEDS, Other Cardiovascular Problems/Disorders - 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 / 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/2015 Denies: Hx Pacemaker/ICD Respiratory History: Reports: Hx Asthma, Hx Chronic Bronchitis, Hx Chronic Obstructive Pulmonary Disease (COPD) - on home O2 - 2 L at night, Hx Pneumonia GI History: Reports: Hx Diverticulosis, Hx Ulcer History: Denies: Hx Renal Disease Musculoskeletal History: Reports: Hx Arthritis, Hx Back Problems - chronic pain , Other Musculoskeletal History - shoulder pain (rotator cuff) Sensory History: Reports: Hx Contacts or Glasses Denies: Hx Hearing Aid Opthamlomology History: Reports: Hx Contacts or Glasses Neurological History: Reports: Hx Migraine, Other Neuro Impairments/Disorders - PAIN CLINIC PATIENT, spinal stenosis, sciatica Psychiatric History: Reports: Hx Anxiety, Hx Depression Denies: Hx Panic Disorder - Surgical History Surgery Procedure, Year, and Place: TUBAL LIGATION, FATTY MASS FROM L THIGH - Immunization History Date of Tetanus Vaccine: unk Date of Influenza Vaccine: 2016 Immunizations Up to Date: Yes Infectious Disease History: No Infectious Disease History: Denies: Hx Hepatitis, Hx Human Immunodeficiency Virus (HIV), History Other Infectious Disease, Traveled Outside the [place] in Last 30 Days - Family History Known Family History: Positive: Diabetes Negative: Cardiac Disease, Hypertension - Social History Alcohol Use: Rare Hx Substance Use: No Substance Use Type: Reports: None Smoking Status (MU): Former Smoker Type: Cigarettes Amount Used/How Often: 1 ppd Length of Time of Smoking/Using Tobacco: 50 yrs Have You Smoked in the Last Year: No Review of Systems Positive: Chills. Negative: Fever Negative: Ear Ache Positive: Chest Pain Positive: Shortness Of Breath - more than at baseline Positive: Abdominal Pain, Vomiting, Diarrhea, Nausea Negative: dysuria, hematuria, other - bloody stools Negative: Other - back pain Positive: Bruising - bruises easily Positive: Headache All Other Systems Reviewed And Are Negative: Yes Physical Exam Triage Information Reviewed: Yes Vital Signs On Initial Exam: Initial Vitals Temp Pulse Resp BP Pulse Ox 97.4 F 80 16 179/79 96 12/10/16 22:10 12/10/16 22:10 12/10/16 22:10 12/10/16 22:10 12/10/16 22:10 Vital Signs Reviewed: Yes Appearance: Positive: Well-Nourished Skin: Positive: Warm, Skin Color Reflects Adequate Perfusion, Dry Head/Face: Positive: Normal Head/Face Inspection Eyes: Positive: Normal ENT: Positive: Normal ENT inspection Neck: Positive: Supple, Nontender Respiratory/Lung Sounds: Positive: Clear to Auscultation, Breath Sounds Present Cardiovascular: Positive: Normal, RRR Abdomen Description: Positive: Soft, Guarding - voluntary guarding, Other: - diffusely tender nonsurgical abd. Negative: CVA Tenderness (R), CVA Tenderness (L) Bowel Sounds: Positive: Other - decreased bowel sounds Musculoskeletal: Positive: Normal. Negative: Edema Left, Edema Right, Other - LE swelling b/l Neurological: Positive: Normal, Sensory/Motor Intact, Alert, Oriented to Person Place, Time Psychiatric: Positive: Normal - Gering Coma Scale Coma Scale Total: 15 Diagnostics - Vital Signs Vital Signs Temp Pulse Resp BP Pulse Ox 12/10/16 22:10 97.4 F 80 16 179/79 96 - Laboratory Result Diagrams: 12/10/16 23:00 12/10/16 23:00 Lab Statement: Any lab studies that have been ordered have been reviewed, and results considered in the medical decision making process. - Radiology Chest XR Xray Interpretation: No Acute Changes - Normal chest XR. Radiology Interpretation Completed By: ED Physician - CT Abd/pel CT CT Interpretation Completed By: Radiologist - Pending official interpretation from radiologist. See [facility]. - EKG 0058 Cardiac Rate: NL - 74 bpm EKG Rhythm: Sinus Rhythm EKG Interpretation: No WA. Non-specific intraventricular delay. ST and T waves are normal. Abdominal Pain Fem Course/Dx - Course Course Of Treatment: Pt is a 71 y/o female presenting to [facility] c/o abd pain, nausea, and vomiting since this morning. Chest XR is normal. EKG shows NSR and non-specific intraventricular delay. I discussed the case with Dr. Henry who has aggreed to admit the pt. - Diagnoses Provider Diagnoses: Colitis - Provider Notifications Discussed Care Of Patient With: Sherly Henry Time Discussed With Above Provider: 23:57 Instructed by Provider To: Other - I discussed the pt's case with Dr. Henry. She has agreed to admit the pt. Discharge - Discharge Plan Condition: Stable Disposition: ADMITTED TO [facility] documentation as recorded by the Néstor prado Angela accurately reflects the service I personally performed and the decisions made by me, Shadia Agarwal MD.
[2016-12-12] MEDS: NS 0.9% 1000 ML* 1,000 ML IV SCH (05:55)
[2016-12-12] MEDS: Heparin VIAL(*) 5000 UNITS/ML VIAL (FIVE THOUSAND) SUBCUT SCH ×3 (05:57→20:50)
[2016-12-12 06:01] LABS: Hematocrit 32 % (35-47); Hemoglobin 10.2 g/dl (12.0-16.0); Mean Corpuscular HGB Conc 32 g/dl (31-36); Mean Corpuscular Hemoglobin 25 pg (27-31); Mean Corpuscular Volume 80 fL (80-97); Mean Platelet Volume 9 um3 (7.4-10.4); Red Blood Count 4.02 10^6/ul (4.0-5.4); Red Cell Distribution Width 17 % (10.5-15); White Blood Count 10.7 10^3/ul (3.5-10.8)
[2016-12-12 06:03] LABS: Albumin 3.2 g/dL (3.2-5.2); Calcium 8.5 mg/dL (8.6-10.3); EGFR African American 123.6 (>60); EGFR Non-African American 96.1 (>60); Globulin 2.5 g/dL (2-4); HDL Cholesterol 30.3 mg/dL; Total Bilirubin 0.3 mg/dL (0.2-1.0); Total Protein 5.7 g/dL (6.4-8.9)
--- NOTE | 2016-12-12 08:45 | PN ---
Progress Note - Progress Note Date of Service: 12/12/16 SOAP: Subjective: Pt seen and examined. Still in pain. nausea. bloody BM yesterday. Pain with movement. radiates from L to right. dyspnea Objective: af vss abdo: soft/ distended, tender without rebound labs noted Assessment: Likely GS pancreatitis. I recommend lap alem when LIpase normalizes. Regarding the descending colitis, this may be primary dx, but less likely given presentationa dn physical exam Plan: Lap alem Wednesday cardiology eval? vs clearance through hosp service. NPO at [place] on wednesday pain control sips of clears labs in am
[2016-12-12] MEDS: Acetaminophen TAB* 325 MG PO PRN ×3 (09:21→20:37)
[2016-12-12] MEDS: Benzonatate CAP* 100 MG PO PRN ×2 (09:22→21:11)
[2016-12-12] MEDS: Clopidogrel TAB* 75 MG PO SCH (09:22)
[2016-12-12] MEDS: buPROPion SR TAB.SR* 150 MG PO SCH ×3 (09:22→20:37)
[2016-12-12] MEDS: metroNIDAZOLE TAB* 250 MG PO SCH ×2 (09:22→20:37)
[2016-12-12] MEDS: Diltiazem CD CAP* 240 MG PO SCH (09:23)
[2016-12-12] MEDS: Insulin LISPRO* 1 UNITS UNIT SUBCUT SCH ×4 (09:23→20:35)
[2016-12-12] MEDS: FLUTICASONE INH SCH ×2 (10:56→11:32)
[2016-12-12] MEDS: MDI INH SCH ×2 (10:56→11:32)
[2016-12-12] MEDS: VILANTEROL MDI INH SCH ×2 (10:56→11:32)
[2016-12-12] MEDS: Albuterol 2.5 MG/3 ML NEB.SOL* (0.083%) INH PRN (10:57)
[2016-12-12] MEDS: Pantoprazole IV* 40 MG IV SCH (12:05)
[2016-12-12] MEDS: Albuterol 2.5 MG/3 ML NEB.SOL* (0.083%) INH SCH ×3 (15:04→23:09)
--- NOTE | 2016-12-12 17:04 | PN ---
Subjective Date of Service: 12/12/16 Interval History: Patient states she still has abd pain but it is better than yesterday. She states that yesterday and again this AM she had midsternal chest pain radiating to both sides of her jaw, lasting about 30 minutes. Objective Active Medications: Acetaminophen (Tylenol Tab*) 650 mg PO Q4H PRN PRN Reason: pain Last Admin: 12/12/16 14:32 Dose: 650 mg Albuterol (Ventolin 2.5 Mg/3 Ml Neb.Abigail*) 2.5 mg INH Q6H PRN PRN Reason: SOB/WHEEZING Last Admin: 12/12/16 10:57 Dose: 2.5 mg Albuterol (Ventolin Hfa Inhaler*) 2 puff INH Q4H PRN PRN Reason: SOB/WHEEZING Last Admin: 12/12/16 06:08 Dose: 2 puff Albuterol (Ventolin 2.5 Mg/3 Ml Neb.Abigail*) 2.5 mg INH [id number] AWAKE [facility] Last Admin: 12/12/16 15:04 Dose: 2.5 mg Benzonatate (Tessalon Cap*) 200 mg PO Q6H PRN PRN Reason: COUGH Last Admin: 12/12/16 09:22 Dose: 200 mg Bupropion HCl (Wellbutrin Sr Tab*) 150 mg PO TID [facility] Last Admin: 12/12/16 14:32 Dose: 150 mg Clopidogrel Bisulfate (Plavix Tab*) 75 mg PO DAILY [facility] Last Admin: 12/12/16 09:22 Dose: 75 mg Dextrose (D50w Syringe 50 Ml*) 12.5 gm IV PUSH .FOR FS < 60 - SS PRN PRN Reason: FS < 60 Diltiazem HCl (Cardizem Cd Cap*) 240 mg PO DAILY [facility] Last Admin: 12/12/16 09:23 Dose: 240 mg Fluticasone/Vilanterol (Breo Ellipta Mdi 100/25(Nf)) 1 puff INH DAILY [facility] Last Admin: 12/12/16 11:32 Dose: 1 puff Heparin Sodium (Porcine) (Heparin Vial(*)) 5,000 units SUBCUT Q8HR [facility] Last Admin: 12/12/16 14:37 Dose: 5,000 units Hydralazine HCl (Apresoline Iv*) 5 mg IV SLOW PU Q6H PRN PRN Reason: SBP>170 Last Admin: 12/11/16 03:00 Dose: 5 mg Insulin Human Lispro (Humalog*) 0 units SUBCUT ACHS JYOTHI PRN Reason: Protocol Last Admin: 12/12/16 16:33 Dose: Not Given Lisinopril (Prinivil Tab*) 10 mg PO BEDTIME [facility] Last Admin: 12/11/16 20:32 Dose: 10 mg Metronidazole (Flagyl Tab*) 500 mg PO BID [facility] Last Admin: 12/12/16 09:22 Dose: 500 mg Morphine Sulfate (Morphine Inj (Syringe)*) 2 mg IV Q3H PRN PRN Reason: PAIN Last Admin: 12/11/16 23:47 Dose: 2 mg Ondansetron HCl (Zofran Inj*) 4 mg IV Q6H PRN PRN Reason: NAUSEA Last Admin: 12/11/16 12:34 Dose: 4 mg Pantoprazole Sodium (Protonix Iv*) 40 mg IV Q24H [facility] Last Admin: 12/12/16 12:05 Dose: 40 mg Prochlorperazine Edisylate (Compazine Inj*) 10 mg IV Q6H PRN PRN Reason: NAUSEA/VOMITING Last Admin: 12/11/16 01:17 Dose: 10 mg Simvastatin (Zocor(Nf)) 40 mg PO BEDTIME [facility] Last Admin: 12/11/16 23:01 Dose: 40 mg Throat Lozenges (Chloraseptic Ias*) 1 isa PO Q2H PRN PRN Reason: COUGH Last Admin: 12/11/16 17:07 Dose: 1 isa Tiotropium Laurel (Spiriva Cap.Inh*) 1 cap INH BEDTIME [facility] Last Admin: 12/11/16 19:42 Dose: 1 cap Vital Signs 12/11/16 12/11/16 12/11/16 17:40 19:45 19:51 Temperature Pulse Rate 69 74 Respiratory 16 20 18 Rate Blood Pressure (mmHg) O2 Sat by Pulse 99 94 Oximetry 12/11/16 12/11/16 12/11/16 20:06 23:42 23:47 Temperature 99.3 F 98.8 F Pulse Rate 72 69 Respiratory 18 16 18 Rate Blood Pressure 137/45 158/53 (mmHg) O2 Sat by Pulse 95 95 Oximetry 12/12/16 12/12/16 12/12/16 00:47 01:28 03:35 Temperature 98.6 F Pulse Rate 73 69 Respiratory 16 20 16 Rate Blood Pressure 153/54 (mmHg) O2 Sat by Pulse 94 95 Oximetry 12/12/16 12/12/16 12/12/16 07:12 07:50 11:03 Temperature 98.7 F Pulse Rate 69 63 Respiratory 16 18 16 Rate Blood Pressure 128/48 (mmHg) O2 Sat by Pulse 94 95 Oximetry 12/12/16 12/12/16 12/12/16 11:12 15:05 15:52 Temperature 98.2 F 98.1 F Pulse Rate 77 68 65 Respiratory 16 14 16 Rate Blood Pressure 134/43 141/38 (mmHg) O2 Sat by Pulse 93 96 97 Oximetry Oxygen Devices in Use Now: Nasal Cannula Appearance: Alert, sitting up in bed. In good spirits. Looks comfortable. Eyes: No Scleral Icterus Neck: NL Appearance and Movements; NL JVP, No Thyroid Enlargement, Masses Respiratory: Symmetrical Chest Expansion and Respiratory Effort, Clear to Auscultation, Clear to Percussion Cardiovascular: RRR, No Edema, - - 3/6 systolic murmurm LSB to RSB Abdominal: No Hepatosplenomegaly, - - Soft, mild upper abd tenderness. Nl BS. Extremities: No Edema, No Clubbing, Cyanosis, - Skin: No Rash or Ulcers, No Nodules or Sclerosis, - Neurological: Alert and Oriented x 3, NL Sensation Result Diagrams: 12/12/16 05:04 12/12/16 05:09 Microbiology and Other Data: Microbiology 12/12/16 00:11 Stool Gross Appearance - Final Stool C. difficile DNA Amplification - Final 027 Presumptive NEGATIVE Toxigenic C.diff NEGATIVE Assess/Plan/Problems-Billing Assessment: - Patient Problems (1) Pancreatitis Current Visit: No Status: Acute Code(s): K85.90 - ACUTE PANCREATITIS WITHOUT NECROSIS OR INFECTION, UNSP SNOMED Code(s): 75594473 Comment: Continue clear liquids, reduce analgesic dose at pt request (made her too sleepy). US GB showed gallstones but no signs of cholecystitis. Discussed with Dr. Mendez and Dr. Kerr. Cholecystectomy when medically optimized. (2) COPD (chronic obstructive pulmonary disease) Current Visit: No Status: Chronic Code(s): J44.9 - CHRONIC OBSTRUCTIVE PULMONARY DISEASE, UNSPECIFIED SNOMED Code(s): 27871924 Comment: No evidence of acute exacerbation. Cont home medications Quit smoking 11/2014. Uses O2 at home. (3) Type 2 diabetes mellitus Current Visit: No Status: Acute Comment: Glipizide held at this time. Continue Lispro by SS. (4) GERD (gastroesophageal reflux disease) Current Visit: No Status: Acute Code(s): K21.9 - GASTRO-ESOPHAGEAL REFLUX DISEASE WITHOUT ESOPHAGITIS SNOMED Code(s): 530932953 Comment: IV pantorpazole ordered. (5) Chest pain Current Visit: Yes Status: Acute Code(s): R07.9 - CHEST PAIN, UNSPECIFIED SNOMED Code(s): 19828105 Comment: Suspcious for angina in this high-risk pt. Baseline ECG and troponin 12/12. Stress test Thursday 12/14.
[2016-12-12] MEDS: Tiotropium CAP.INH* CAP.INH/18 MCG (USE ORDER SET !) INH SCH (19:46)
[2016-12-12] MEDS: CMCS: Simvastatin TAB(NF) 20 MG TAB PO SCH (20:36)
[2016-12-12] MEDS: Lisinopril TAB* 10 MG PO SCH (20:37)
[2016-12-12] MEDS: Ondansetron INJ* 2 MG/ML VIAL IV PRN (21:11)
[2016-12-13] MEDS: Morphine INJ* 2 MG/ML 1 ML SYRINGE (TWO MG - NEW SYRINGE VERSION) IV PRN ×3 (02:24→19:49)
[2016-12-13] MEDS: Albuterol 2.5 MG/3 ML NEB.SOL* (0.083%) INH SCH ×6 (03:42→23:18)
[2016-12-13] MEDS: Heparin VIAL(*) 5000 UNITS/ML VIAL (FIVE THOUSAND) SUBCUT SCH ×3 (05:40→21:56)
[2016-12-13] MEDS: Insulin LISPRO* 1 UNITS UNIT SUBCUT SCH ×4 (07:39→21:43)
[2016-12-13] MEDS: VILANTEROL MDI INH SCH (08:17)
[2016-12-13] MEDS: MDI INH SCH (08:17)
[2016-12-13] MEDS: FLUTICASONE INH SCH (08:17)
[2016-12-13] MEDS: metroNIDAZOLE TAB* 250 MG PO SCH ×2 (08:31→19:54)
[2016-12-13] MEDS: Diltiazem CD CAP* 240 MG PO SCH (08:31)
[2016-12-13] MEDS: buPROPion SR TAB.SR* 150 MG PO SCH ×3 (08:31→19:56)
[2016-12-13] MEDS: Clopidogrel TAB* 75 MG PO SCH (08:31)
--- NOTE | 2016-12-13 09:45 | PN ---
Progress Note - Progress Note Date of Service: 12/13/16 SOAP: Subjective: Still has band-like pain across upper abdomen and in back. Feels bloated. No N /V/flatus. No BM. She knows she needs a stress test. Objective: Vital Signs Temp 97.8 F 12/13/16 07:53 Pulse 67 12/13/16 08:20 Resp 16 12/13/16 08:20 BP 171/66 12/13/16 07:53 Pulse Ox 96 12/13/16 08:20 NAD, sitting up, taking clears. Abd: distended, soft, mildly tender in upper abd. Intake & Output 12/12/16 12/13/16 12/13/16 18:59 06:59 18:59 Intake Total 2390 0 Output Total 900 Balance 1490 0 Intake: IV Fluids 1410 NS (0.9%) 1410 Oral 980 0 Output: Urine 900 Other: # Voids 1 Assessment: GS pancreatitis. Vasculopath. Plan: To complete cardiac eval/med clearance. Lap alem when optimized. Clears for now. Lipase in AM. D/w pt and dtr.
[2016-12-13] MEDS: Pantoprazole IV* 40 MG IV SCH (13:27)
--- NOTE | 2016-12-13 17:06 | PN ---
Subjective Date of Service: 12/13/16 Interval History: No more chest pain. Abd pain slowly improving. No new c/o. Objective Active Medications: Acetaminophen (Tylenol Tab*) 650 mg PO Q4H PRN PRN Reason: pain Last Admin: 12/12/16 20:37 Dose: 650 mg Albuterol (Ventolin 2.5 Mg/3 Ml Neb.Abigail*) 2.5 mg INH Q6H PRN PRN Reason: SOB/WHEEZING Last Admin: 12/12/16 10:57 Dose: 2.5 mg Albuterol (Ventolin Hfa Inhaler*) 2 puff INH Q4H PRN PRN Reason: SOB/WHEEZING Last Admin: 12/12/16 06:08 Dose: 2 puff Albuterol (Ventolin 2.5 Mg/3 Ml Neb.Abigail*) 2.5 mg INH [id number] AWAKE [facility] Last Admin: 12/13/16 16:05 Dose: 2.5 mg Benzonatate (Tessalon Cap*) 200 mg PO Q6H PRN PRN Reason: COUGH Last Admin: 12/12/16 21:11 Dose: 200 mg Bupropion HCl (Wellbutrin Sr Tab*) 150 mg PO TID [facility] Last Admin: 12/13/16 13:27 Dose: 150 mg Clopidogrel Bisulfate (Plavix Tab*) 75 mg PO DAILY [facility] Last Admin: 12/13/16 08:31 Dose: 75 mg Dextrose (D50w Syringe 50 Ml*) 12.5 gm IV PUSH .FOR FS < 60 - SS PRN PRN Reason: FS < 60 Diltiazem HCl (Cardizem Cd Cap*) 240 mg PO DAILY [facility] Last Admin: 12/13/16 08:31 Dose: 240 mg Fluticasone/Vilanterol (Breo Ellipta Mdi 100/25(Nf)) 1 puff INH DAILY [facility] Last Admin: 12/13/16 08:17 Dose: 1 puff Heparin Sodium (Porcine) (Heparin Vial(*)) 5,000 units SUBCUT Q8HR [facility] Last Admin: 12/13/16 13:27 Dose: 5,000 units Hydralazine HCl (Apresoline Iv*) 5 mg IV SLOW PU Q6H PRN PRN Reason: SBP>170 Last Admin: 12/11/16 03:00 Dose: 5 mg Insulin Human Lispro (Humalog*) 0 units SUBCUT ACHS JYOTHI PRN Reason: Protocol Last Admin: 12/13/16 11:52 Dose: Not Given Lisinopril (Prinivil Tab*) 10 mg PO BEDTIME [facility] Last Admin: 12/12/16 20:37 Dose: 10 mg Metronidazole (Flagyl Tab*) 500 mg PO BID [facility] Last Admin: 12/13/16 08:31 Dose: 500 mg Morphine Sulfate (Morphine Inj (Syringe)*) 2 mg IV Q3H PRN PRN Reason: PAIN Last Admin: 12/13/16 12:56 Dose: 2 mg Ondansetron HCl (Zofran Inj*) 4 mg IV Q6H PRN PRN Reason: NAUSEA Last Admin: 12/12/16 21:11 Dose: 4 mg Pantoprazole Sodium (Protonix Iv*) 40 mg IV Q24H JYOTHI Last Admin: 12/13/16 13:27 Dose: 40 mg Prochlorperazine Edisylate (Compazine Inj*) 10 mg IV Q6H PRN PRN Reason: NAUSEA/VOMITING Last Admin: 12/11/16 01:17 Dose: 10 mg Simvastatin (Zocor(Nf)) 40 mg PO BEDTIME [facility] Last Admin: 12/12/16 20:36 Dose: 40 mg Throat Lozenges (Chloraseptic Isa*) 1 isa PO Q2H PRN PRN Reason: COUGH Last Admin: 12/11/16 17:07 Dose: 1 isa Tiotropium [place] (Spiriva Cap.Inh*) 1 cap INH BEDTIME [facility] Last Admin: 12/12/16 19:46 Dose: 1 cap Vital Signs 12/12/16 12/12/16 12/12/16 17:50 19:15 19:37 Temperature 98.2 F Pulse Rate 64 64 Respiratory 17 20 Rate Blood Pressure 155/56 152/60 (mmHg) O2 Sat by Pulse 96 99 Oximetry 12/12/16 12/12/16 12/12/16 19:44 20:00 20:12 Temperature 97.9 F Pulse Rate 63 67 Respiratory 20 14 16 Rate Blood Pressure 146/55 (mmHg) O2 Sat by Pulse 99 100 Oximetry 12/12/16 12/12/16 12/13/16 23:52 23:53 02:24 Temperature 98.5 F Pulse Rate 66 Respiratory 16 16 Rate Blood Pressure 162/52 178/52 (mmHg) O2 Sat by Pulse 97 Oximetry 12/13/16 12/13/16 12/13/16 03:13 03:24 07:53 Temperature 98.4 F 97.8 F Pulse Rate 64 68 Respiratory 16 16 18 Rate Blood Pressure 130/42 171/66 (mmHg) O2 Sat by Pulse 96 97 Oximetry 12/13/16 12/13/16 12/13/16 08:00 08:20 12:06 Temperature Pulse Rate 67 69 Respiratory 16 16 16 Rate Blood Pressure (mmHg) O2 Sat by Pulse 96 98 Oximetry 12/13/16 12/13/16 12/13/16 12:56 13:56 16:12 Temperature Pulse Rate 70 Respiratory 18 16 16 Rate Blood Pressure (mmHg) O2 Sat by Pulse 95 Oximetry Oxygen Devices in Use Now: Nasal Cannula Appearance: Alert, partly up in bed. In good spirits, holding ice pack on her upper abdomen but seems comfortable. Eyes: No Scleral Icterus Neck: NL Appearance and Movements; NL JVP, No Thyroid Enlargement, Masses Respiratory: Symmetrical Chest Expansion and Respiratory Effort, Clear to Auscultation, Clear to Percussion Cardiovascular: RRR, No Edema, - - 1/6 systolic murmur LSB. Abdominal: - - Soft, mildly tender. Nl BS. Extremities: No Edema, No Clubbing, Cyanosis, - Skin: No Rash or Ulcers, No Nodules or Sclerosis, - Neurological: Alert and Oriented x 3, NL Sensation Result Diagrams: 12/12/16 05:04 12/12/16 05:09 Microbiology and Other Data: Microbiology 12/12/16 00:11 Stool Gross Appearance - Final Stool C. difficile DNA Amplification - Final 027 Presumptive NEGATIVE Toxigenic C.diff NEGATIVE Assess/Plan/Problems-Billing Assessment: - Patient Problems (1) Pancreatitis Current Visit: No Status: Acute Code(s): K85.90 - ACUTE PANCREATITIS WITHOUT NECROSIS OR INFECTION, UNSP SNOMED Code(s): 23453435 Comment: Continue clear liquids, on reduced analgesic dose at pt request ( made her too sleepy). US GB showed gallstones but no signs of cholecystitis. Discussed with Dr. Mendez and Dr. Kerr. Cholecystectomy when medically optimized. (2) COPD (chronic obstructive pulmonary disease) Current Visit: No Status: Chronic Code(s): J44.9 - CHRONIC OBSTRUCTIVE PULMONARY DISEASE, UNSPECIFIED SNOMED Code(s): 85411300 Comment: No evidence of acute exacerbation. Cont home medications Quit smoking 11/2014. Uses O2 at home. (3) Type 2 diabetes mellitus Current Visit: No Status: Acute Comment: Glipizide held at this time. Continue Lispro by SS. (4) GERD (gastroesophageal reflux disease) Current Visit: No Status: Acute Code(s): K21.9 - GASTRO-ESOPHAGEAL REFLUX DISEASE WITHOUT ESOPHAGITIS SNOMED Code(s): 987531254 Comment: IV pantorpazole ordered. (5) Chest pain Current Visit: Yes Status: Acute Code(s): R07.9 - CHEST PAIN, UNSPECIFIED SNOMED Code(s): 21506712 Comment: Suspcious for angina in this high-risk pt. Repeat ECG 12/12 was benign. Troponin 12/12 was wnl. Stress test Thursday 12/14. Echo ordered on , not done yet.
[2016-12-13] MEDS: hydrALAZINE IV* 20 MG/ML VIAL IV SLOW PU PRN (19:51)
[2016-12-13] MEDS: CMCS: Simvastatin TAB(NF) 20 MG TAB PO SCH (19:56)
[2016-12-13] MEDS: Lisinopril TAB* 10 MG PO SCH (19:56)
[2016-12-13] MEDS: Tiotropium CAP.INH* CAP.INH/18 MCG (USE ORDER SET !) INH SCH (19:59)
[2016-12-13] MEDS: Ondansetron INJ* 2 MG/ML VIAL IV PRN (22:04)
[2016-12-14] MEDS: Morphine INJ* 2 MG/ML 1 ML SYRINGE (TWO MG - NEW SYRINGE VERSION) IV PRN ×2 (01:38→15:14)
[2016-12-14] MEDS: Albuterol 2.5 MG/3 ML NEB.SOL* (0.083%) INH SCH ×6 (03:03→23:39)
[2016-12-14] MEDS: MDI INH SCH (07:40)
[2016-12-14] MEDS: VILANTEROL MDI INH SCH (07:40)
[2016-12-14] MEDS: FLUTICASONE INH SCH (07:40)
[2016-12-14] MEDS: Heparin VIAL(*) 5000 UNITS/ML VIAL (FIVE THOUSAND) SUBCUT SCH ×3 (07:45→21:05)
[2016-12-14] MEDS: Insulin LISPRO* 1 UNITS UNIT SUBCUT SCH ×4 (08:10→21:05)
[2016-12-14] MEDS: buPROPion SR TAB.SR* 150 MG PO SCH ×3 (08:11→21:02)
[2016-12-14] MEDS: metroNIDAZOLE TAB* 250 MG PO SCH ×2 (08:11→21:02)
[2016-12-14] MEDS: Diltiazem CD CAP* 240 MG PO SCH (08:11)
[2016-12-14] MEDS: Clopidogrel TAB* 75 MG PO SCH (08:11)
--- NOTE | 2016-12-14 11:39 | ECHO ---
Patient: MIRANDA EDMONDSON [facility] Rec#: [id number] : 1945 Date: 12/14/2016 Age: 71y Height: 165.1 cm / 65.0 in Weight: 63.5 kg / 140.0 lbs Sex: F BSA: 1.7 Room#: 419 Admit Date#: 12/11/2016 Type: Inpatient Referring: Kit Porter MD Reading: Ari Murrieta MD Senior Quality Technician: Bettye Pelayo RDCS CC: Sammy Gastelum MD Transthoracic Echocardiogram Indication: Murmur BP: 156/53 HR: 67 Rhythm: NSR Findings History: Colitis,DM,PAD,COPD,HTN,HLD. Technical Comments: The study quality is good. Completed at 1100. Left Ventricle: Mild to moderate concentric left ventricular hypertrophy is observed. Global left ventricular wall motion and contractility are within normal limits. There is normal left ventricular systolic function. The estimated ejection fraction is 55-60%. Abnormal left ventricular diastolic function is observed. Left Atrium: The left atrial chamber size is normal. Right Ventricle: The right ventricular cavity size is normal. The right ventricular global systolic function is normal. Right Atrium: The right atrial cavity size is normal. Aortic Valve: The aortic valve is trileaflet. There is no evidence of aortic valve thickening. There is no evidence of aortic regurgitation. There is mild aortic stenosis.Mean gradient 7 mmHg Mitral Valve: The mitral valve leaflets are mildly thickened. There is mild to moderate mitral regurgitation. There is no evidence of mitral stenosis. Tricuspid Valve: The tricuspid valve leaflets are normal. There is trace tricuspid regurgitation. Unable to estimate the right ventricular systolic pressure. Pulmonic Valve: The pulmonic valve appears normal. Pericardium: The pericardium appears normal. Aorta: There is no dilatation of the ascending aorta. The aortic arch is not well visualized. There is no dilation of the aortic root. Pulmonary Artery: The main pulmonary artery appears normal. Venous: The inferior vena cava appears normal in size. There is a greater than 50% respiratory change in the inferior vena cava dimension. Summary: There are no significant changes when compared to the previous study done on 02/04/16 Conclusions Mild to moderate concentric left ventricular hypertrophy is observed. Global left ventricular wall motion and contractility are within normal limits. There is normal left ventricular systolic function. The estimated ejection fraction is 55-60%. There is mild aortic stenosis.Mean gradient 7 mmHg There is mild/moderate mitral regurgitation. There is trace tricuspid regurgitation. Unable to estimate the right ventricular systolic pressure. The pericardium appears normal. There are no significant changes when compared to the previous study done on 02/04/16 Measurements Name Value Normal Range RVIDd (AP) 2D 2.8 cm (0.9 - 2.6) RVDdMajor (2D) 3.2 cm (2.2 - 4.4) RAd ISD 4CH 3.9 cm (3.4 - 4.9) RA (A4C)W 3 cm (2.9 - 4.6) IVSd (2D) 1.3 cm (0.6 - 1) LVPWd (2D) 1.3 cm (0.6 - 1) LVIDd (2D) 3.6 cm (3.6 - 5.4) LVIDs (2D) 2.6 cm - LV FS (2D) 28 % (25 - 45) Aortic Annulus 1.6 cm (1.4 - 2.6) Ao root diameter (2D) 3 cm (2.1 - 3.5) Ascending Ao 3 cm (2.1 - 3.4) LA dimension (AP) 2D 3.4 cm (2.3 - 3.8) LAd ISD 4CH 4.3 cm (2.9 - 5.3) LA ISD 4CH W 2.9 cm (2.5 - 4.5) Name Value Normal Range LA ESV SP 4CH (A/L) 30 ml - LA ESV SP 2CH (A/L) 31 ml - LA ESV BP (A/L) 31 ml - LA ESV BP (A/L) index 18.09 ml/m2 - LA ESV SP 4CH (MOD) 27 ml - LA ESV SP 2CH (MOD) 29 ml - Name Value Normal Range MV E-wave Vmax 0.8 m/sec - MV deceleration time 338 msec - MV A-wave Vmax 1.1 m/sec - MV E:A ratio 0.69 ratio - LV septal e' Vmax 0.05 m/sec - LV lateral e' Vmax 0.08 m/sec - LV E:e' septal ratio 16 ratio - LV E:e' lateral ratio 10 ratio - Name Value Normal Range AV Vmax 1.9 m/sec - AV VTI 39 cm - AV peak gradient 14.64 mmHg - AV mean gradient 6.94 mmHg - LVOT Vmax 1.3 m/sec - LVOT VTI 27.3 cm - LVOT peak gradient 7.13 mmHg - LVOT mean gradient 2.57 mmHg - Name Value Normal Range IVC diameter 1.3 cm - Name Value Normal Range PV Vmax 1.3 m/sec - PV peak gradient 6.29 mmHg -
[2016-12-14] MEDS: Pantoprazole IV* 40 MG IV SCH (13:02)
[2016-12-14] MEDS ORDERED: Regadenoson* 0.4 MG/5 ML SYRINGE ONE (13:44)
[2016-12-14] MEDS ORDERED: Aminophylline IV* 25 MG/ML 10 ML VIAL ONE (13:45)
--- NOTE | 2016-12-14 14:18 | PN ---
Subjective Date of Service: 12/14/16 Interval History: HOSPITALIST PROGRESS NOTE Patient seen and examined at bedside. Epigastric pain is a 6/10 today, relieved by ice pack. Has some nausea, but no vomiting so far today. No flatus or BMs so far. Food does not sound appealing. Family History: Unchanged from Admission Social History: Unchanged from Admission Past Medical History: Unchanged from Admission Objective Active Medications: Acetaminophen (Tylenol Tab*) 650 mg PO Q4H PRN PRN Reason: pain Last Admin: 12/12/16 20:37 Dose: 650 mg Albuterol (Ventolin 2.5 Mg/3 Ml Neb.Abigail*) 2.5 mg INH Q6H PRN PRN Reason: SOB/WHEEZING Last Admin: 12/12/16 10:57 Dose: 2.5 mg Albuterol (Ventolin Hfa Inhaler*) 2 puff INH Q4H PRN PRN Reason: SOB/WHEEZING Last Admin: 12/12/16 06:08 Dose: 2 puff Albuterol (Ventolin 2.5 Mg/3 Ml Neb.Abigail*) 2.5 mg INH [id number] AWAKE [facility] Last Admin: 12/14/16 10:51 Dose: 2.5 mg Benzonatate (Tessalon Cap*) 200 mg PO Q6H PRN PRN Reason: COUGH Last Admin: 12/12/16 21:11 Dose: 200 mg Bupropion HCl (Wellbutrin Sr Tab*) 150 mg PO TID [facility] Last Admin: 12/14/16 12:54 Dose: 150 mg Clopidogrel Bisulfate (Plavix Tab*) 75 mg PO DAILY [facility] Last Admin: 12/14/16 08:11 Dose: 75 mg Dextrose (D50w Syringe 50 Ml*) 12.5 gm IV PUSH .FOR FS < 60 - SS PRN PRN Reason: FS < 60 Diltiazem HCl (Cardizem Cd Cap*) 240 mg PO DAILY [facility] Last Admin: 12/14/16 08:11 Dose: 240 mg Fluticasone/Vilanterol (Breo Ellipta Mdi 100/25(Nf)) 1 puff INH DAILY [facility] Last Admin: 12/14/16 07:40 Dose: 1 puff Heparin Sodium (Porcine) (Heparin Vial(*)) 5,000 units SUBCUT Q8HR [facility] Last Admin: 12/14/16 12:55 Dose: 5,000 units Hydralazine HCl (Apresoline Iv*) 5 mg IV SLOW PU Q6H PRN PRN Reason: SBP>170 Last Admin: 12/13/16 19:51 Dose: 5 mg Insulin Human Lispro (Humalog*) 0 units SUBCUT ACHS JYOTHI PRN Reason: Protocol Last Admin: 12/14/16 12:53 Dose: Not Given Lisinopril (Prinivil Tab*) 10 mg PO BEDTIME JYOTHI Last Admin: 12/13/16 19:56 Dose: 10 mg Metronidazole (Flagyl Tab*) 500 mg PO BID [facility] Last Admin: 12/14/16 08:11 Dose: 500 mg Morphine Sulfate (Morphine Inj (Syringe)*) 2 mg IV Q3H PRN PRN Reason: PAIN Last Admin: 12/14/16 01:38 Dose: 2 mg Ondansetron HCl (Zofran Inj*) 4 mg IV Q6H PRN PRN Reason: NAUSEA Last Admin: 12/13/16 22:04 Dose: 4 mg Pantoprazole Sodium (Protonix Iv*) 40 mg IV Q24H [facility] Last Admin: 12/14/16 13:02 Dose: 40 mg Prochlorperazine Edisylate (Compazine Inj*) 10 mg IV Q6H PRN PRN Reason: NAUSEA/VOMITING Last Admin: 12/11/16 01:17 Dose: 10 mg Simvastatin (Zocor(Nf)) 40 mg PO BEDTIME [facility] Last Admin: 12/13/16 19:56 Dose: 40 mg Throat Lozenges (Chloraseptic Isa*) 1 isa PO Q2H PRN PRN Reason: COUGH Last Admin: 12/11/16 17:07 Dose: 1 isa Tiotropium [place] (Spiriva Cap.Inh*) 1 cap INH BEDTIME [facility] Last Admin: 12/13/16 19:59 Dose: 1 cap Vital Signs 12/14/16 12/14/16 12/14/16 08:54 10:53 11:39 Temperature 97.8 F Pulse Rate 72 70 66 Respiratory 14 18 Rate Blood Pressure 174/70 169/56 (mmHg) O2 Sat by Pulse 97 98 Oximetry Oxygen Devices in Use Now: None Appearance: Pleasant lady lying in bed in NAD. Eyes: No Scleral Icterus Ears/Nose/Mouth/Throat: Mucous Membranes Moist Neck: Trachea Midline Respiratory: Symmetrical Chest Expansion and Respiratory Effort, Clear to Auscultation Cardiovascular: RRR - Normal S1 and S2, +SM Abdominal: - - Mild distention, mild difuse tenderness, NG, NR, BS+ but hypoactive Extremities: No Edema Neurological: Alert and Oriented x 3, NL Muscle Strength and Tone Lines/Tubes/Other Access: Clean, Dry and Intact Peripheral IV Nutrition: Taking PO's Result Diagrams: 12/12/16 05:04 12/12/16 05:09 Assess/Plan/Problems-Billing Assessment: Mrs. Bates is a 71yo F with PMH of type 2 DM, PAD, COPD, HTN, HLD, chronic anemia, who presented to ED with c/o N/V and abdominal pain, found to have acute pancreatitis. - Patient Problems (1) Pancreatitis Comment: - Likely gallstone pancreatitis. - Improving. Abdominal pain is less intense, still has nausea, but no vomiting so far today. - Lipase down to 114. - Surgery input appreciated - plan for cholecystectomy when medically optimized. (2) Chest pain Comment: - ACS ruled out, but patient does have risk factors for CAD, including PAD. - For stress test today. - Echo showed EF 55-60%, no wall motion abnormalities, mild to moderate MR, no significant change from 2016. - Continue Plavix. (3) COPD exacerbation Comment: - Stable. - Continue bronchodilators and steroids. - Continue supplemental O2. (4) Type 2 diabetes mellitus Comment: - Glipizide on hold at this time. Continue Lispro by SS. (5) GERD (gastroesophageal reflux disease) Comment: - Continue IV pantorpazole. (6) DVT prophylaxis Comment: - SQ heparin. (7) Full code status Status and Disposition: Inpatient for management of gallstones pancreatitis.
[2016-12-14] MEDS: Ondansetron INJ* 2 MG/ML VIAL IV PRN (14:50)
--- NOTE | 2016-12-14 15:27 | RAD ---
Edited for charges. Indication: Chest pain, coronary artery disease. Myocardial perfusion scan was performed utilizing 1 day protocol. 10.8 mCi of technetium 99 and tetrofosmin was injected for the rest portion of the study. Pharmacological stress was applied and 25.6 mCi of technetium 99 and tetrofosmin was injected for the stress portion of the study. There is homogeneous distribution of the radiotracer throughout the left ventricle. There is no evidence of fixed or reversible perfusion defect identified. The ejection fraction at stress is 70%. No focal wall motion abnormality is identified. IMPRESSION: No evidence of fixed or reversible perfusion defect is identified. ASSESSMENT: Low risk Based on imaging criteria from ACC/AHA 2002 Guideline Update for the Management of Patients With Chronic Stable Angina Table 23. Noninvasive Risk Stratification. MTDD
--- NOTE | 2016-12-14 15:42 | PN ---
Progress Note - Progress Note Date of Service: 12/14/16 SOAP: Subjective: Reports doing much better overall. Still has occasional nausea, but has improved since the weekend. Echo and stress test done today. Objective: Awake and alert, appears comfortable, in NAD VSS, afebrile Abdomen soft, NT. ND. No guarding or rigidity. Ext. without edema Labs noted, Lipase 114 Assessment: A 71 y/o female with probable gallstone pancreatitis, improving clinically. Plan: Had a discussion with Dr. Buck. Patient is still on Plavix, would not recommend proceeding with surgery tomorrow. If her stress test comes back with no significant hogh risk, then may hold Plavix starting today and plan for lap alem on Wednesday. Discussed plans with pt, who understood and agreed.
[2016-12-14] MEDS: Tiotropium CAP.INH* CAP.INH/18 MCG (USE ORDER SET !) INH SCH (19:55)
[2016-12-14] MEDS: CMCS: Simvastatin TAB(NF) 20 MG TAB PO SCH (21:02)
[2016-12-14] MEDS: Lisinopril TAB* 10 MG PO SCH (21:03)
[2016-12-14] MEDS: hydrALAZINE IV* 20 MG/ML VIAL IV SLOW PU PRN (23:42)
[2016-12-15] MEDS: Morphine INJ* 2 MG/ML 1 ML SYRINGE (TWO MG - NEW SYRINGE VERSION) IV PRN ×2 (00:24→22:05)
[2016-12-15] MEDS: Albuterol 2.5 MG/3 ML NEB.SOL* (0.083%) INH SCH ×6 (03:46→23:51)
[2016-12-15] MEDS: Heparin VIAL(*) 5000 UNITS/ML VIAL (FIVE THOUSAND) SUBCUT SCH ×4 (04:51→22:05)
[2016-12-15] MEDS: buPROPion SR TAB.SR* 150 MG PO SCH ×3 (07:27→21:54)
[2016-12-15] MEDS: metroNIDAZOLE TAB* 250 MG PO SCH ×2 (07:27→21:54)
[2016-12-15] MEDS: Diltiazem CD CAP* 240 MG PO SCH (07:27)
[2016-12-15] MEDS: Insulin LISPRO* 1 UNITS UNIT SUBCUT SCH ×4 (07:34→21:56)
[2016-12-15] MEDS: FLUTICASONE INH SCH (07:52)
[2016-12-15] MEDS: VILANTEROL MDI INH SCH (07:52)
[2016-12-15] MEDS: MDI INH SCH (07:52)
[2016-12-15 09:18] LABS: Hematocrit 30 % (35-47); Hemoglobin 9.7 g/dl (12.0-16.0); Mean Corpuscular HGB Conc 33 g/dl (31-36); Mean Corpuscular Hemoglobin 25 pg (27-31); Mean Corpuscular Volume 77 fL (80-97); Mean Platelet Volume 9 um3 (7.4-10.4); Red Blood Count 3.88 10^6/ul (4.0-5.4); Red Cell Distribution Width 17 % (10.5-15); White Blood Count 5.8 10^3/ul (3.5-10.8)
[2016-12-15 09:27] LABS: BUN/Creatinine Ratio 17.3 (8-20); EGFR African American 148.7 (>60); EGFR Non-African American 115.6 (>60); Potassium 3.4 mmol/L (3.5-5.0)
--- NOTE | 2016-12-15 10:53 | PN ---
Progress Note - Progress Note Date of Service: 12/15/16 SOAP: Subjective: Pt seen and examined. Still in pain. nausea. Objective: af vss abdo: soft/ distended, tender without rebound, unchanged labs noted Assessment: GS pancreatitis. I recommend laparoscopic cholecystectomy. Pt now off plavix. We will schedule for Wednesday. Pt aware. R/B/A discussed. Plan: Lap alem Wednesday pain control hold plavix
[2016-12-15] MEDS: Pantoprazole IV* 40 MG IV SCH (11:28)
--- NOTE | 2016-12-15 15:43 | PN ---
Subjective Date of Service: 12/15/16 Interval History: HOSPITALIST PROGRESS NOTE Patient seen and examined at bedside. Abdominal pain is still present, but less intense. Tolerating full liquid diet, but afraid of advancing it at this point. No BM or flatus, feels bloated. No further episodes of chest pain. Family History: Unchanged from Admission Social History: Unchanged from Admission Past Medical History: Unchanged from Admission Objective Active Medications: Acetaminophen (Tylenol Tab*) 650 mg PO Q4H PRN PRN Reason: pain Last Admin: 12/12/16 20:37 Dose: 650 mg Albuterol (Ventolin 2.5 Mg/3 Ml Neb.Abigail*) 2.5 mg INH Q6H PRN PRN Reason: SOB/WHEEZING Last Admin: 12/12/16 10:57 Dose: 2.5 mg Albuterol (Ventolin Hfa Inhaler*) 2 puff INH Q4H PRN PRN Reason: SOB/WHEEZING Last Admin: 12/12/16 06:08 Dose: 2 puff Albuterol (Ventolin 2.5 Mg/3 Ml Neb.Abigail*) 2.5 mg INH [id number] AWAKE [facility] Last Admin: 12/15/16 12:31 Dose: Not Given Benzonatate (Tessalon Cap*) 200 mg PO Q6H PRN PRN Reason: COUGH Last Admin: 12/12/16 21:11 Dose: 200 mg Bupropion HCl (Wellbutrin Sr Tab*) 150 mg PO TID [facility] Last Admin: 12/15/16 13:54 Dose: 150 mg Dextrose (D50w Syringe 50 Ml*) 12.5 gm IV PUSH .FOR FS < 60 - SS PRN PRN Reason: FS < 60 Diltiazem HCl (Cardizem Cd Cap*) 240 mg PO DAILY [facility] Last Admin: 12/15/16 07:27 Dose: 240 mg Fluticasone/Vilanterol (Breo Ellipta Mdi 100/25(Nf)) 1 puff INH DAILY [facility] Last Admin: 12/15/16 07:52 Dose: 1 puff Heparin Sodium (Porcine) (Heparin Vial(*)) 5,000 units SUBCUT Q8HR [facility] Last Admin: 12/15/16 13:54 Dose: Not Given Hydralazine HCl (Apresoline Iv*) 5 mg IV SLOW PU Q6H PRN PRN Reason: SBP>170 Last Admin: 12/14/16 23:42 Dose: 5 mg Insulin Human Lispro (Humalog*) 0 units SUBCUT ACHS JYOTHI PRN Reason: Protocol Last Admin: 12/15/16 11:34 Dose: 2 units Lisinopril (Prinivil Tab*) 10 mg PO BEDTIME [facility] Last Admin: 12/14/16 21:03 Dose: 10 mg Metronidazole (Flagyl Tab*) 500 mg PO BID [facility] Last Admin: 12/15/16 07:27 Dose: 500 mg Morphine Sulfate (Morphine Inj (Syringe)*) 2 mg IV Q3H PRN PRN Reason: PAIN Last Admin: 12/15/16 00:24 Dose: 2 mg Ondansetron HCl (Zofran Inj*) 4 mg IV Q6H PRN PRN Reason: NAUSEA Last Admin: 12/14/16 14:50 Dose: 4 mg Pantoprazole Sodium (Protonix Iv*) 40 mg IV Q24H [facility] Last Admin: 12/15/16 11:28 Dose: 40 mg Prochlorperazine Edisylate (Compazine Inj*) 10 mg IV Q6H PRN PRN Reason: NAUSEA/VOMITING Last Admin: 12/11/16 01:17 Dose: 10 mg Simvastatin (Zocor(Nf)) 40 mg PO BEDTIME [facility] Last Admin: 12/14/16 21:02 Dose: 40 mg Throat Lozenges (Chloraseptic Isa*) 1 isa PO Q2H PRN PRN Reason: COUGH Last Admin: 12/11/16 17:07 Dose: 1 isa Tiotropium [place] (Spiriva Cap.Inh*) 1 cap INH BEDTIME [facility] Last Admin: 12/14/16 19:55 Dose: 1 cap Vital Signs 12/15/16 12/15/16 12/15/16 03:26 07:16 07:45 Temperature 97.5 F 97.4 F 98.0 F Pulse Rate 62 68 64 Respiratory 16 18 20 Rate Blood Pressure 136/44 128/68 158/52 (mmHg) O2 Sat by Pulse 96 97 98 Oximetry Oxygen Devices in Use Now: None Appearance: Pleasant lady sitting up in bed in NAD. Eyes: No Scleral Icterus Ears/Nose/Mouth/Throat: Mucous Membranes Moist Neck: Trachea Midline Respiratory: Symmetrical Chest Expansion and Respiratory Effort, Clear to Auscultation Cardiovascular: RRR - Normal S1 and S2 Abdominal: - - Soft, mild distention, mild RUQ and epigastric tenderness, NG, NR , BS+ but sluggish Extremities: No Edema Neurological: Alert and Oriented x 3, NL Muscle Strength and Tone Lines/Tubes/Other Access: Clean, Dry and Intact Peripheral IV Nutrition: Taking PO's Result Diagrams: 12/15/16 08:38 12/15/16 08:38 Assess/Plan/Problems-Billing Assessment: Mrs. Bates is a 71yo F with PMH of type 2 DM, PAD, COPD, HTN, HLD, chronic anemia, who presented to ED with c/o N/V and abdominal pain, found to have acute pancreatitis. - Patient Problems (1) Pancreatitis Comment: - Likely gallstone pancreatitis. - Improving. Abdominal pain is less intense, still has nausea, but no vomiting so far today. - Lipase down to 114. - Surgery input appreciated - plan for cholecystectomy when medically optimized. (2) Chest pain Comment: - ACS ruled out, but patient does have risk factors for CAD, including PAD. - Stress test was negative. - Echo showed EF 55-60%, no wall motion abnormalities, mild to moderate MR, no significant change from 2016. - Now that we know her chest pain is not cardiac, Plavix is on hold in preparation for surgery. - Suspect her pain is esophageal in nature - will carafate to PPI. (3) COPD exacerbation Comment: - Stable. - Continue bronchodilators and steroids. - Continue supplemental O2. (4) Type 2 diabetes mellitus Comment: - Glipizide on hold at this time. Continue Lispro by SS. (5) GERD (gastroesophageal reflux disease) Comment: - Continue IV pantorpazole. (6) DVT prophylaxis Comment: - SQ heparin. (7) Full code status Status and Disposition: Inpatient for management of gallstones pancreatitis.
[2016-12-15] MEDS: Tiotropium CAP.INH* CAP.INH/18 MCG (USE ORDER SET !) INH SCH (20:08)
[2016-12-15] MEDS: Lisinopril TAB* 10 MG PO SCH (21:55)
[2016-12-15] MEDS: CMCS: Simvastatin TAB(NF) 20 MG TAB PO SCH (21:55)
[2016-12-15] MEDS: hydrALAZINE IV* 20 MG/ML VIAL IV SLOW PU PRN (23:52)
[2016-12-16] MEDS: Albuterol 2.5 MG/3 ML NEB.SOL* (0.083%) INH SCH ×6 (03:30→23:40)
[2016-12-16] MEDS: Heparin VIAL(*) 5000 UNITS/ML VIAL (FIVE THOUSAND) SUBCUT SCH ×3 (04:45→21:50)
[2016-12-16] MEDS ORDERED: Furosemide IV* 10 MG/ML VIAL (40 MG) IV SLOW PU ONE (07:51)
[2016-12-16] MEDS ORDERED: Potassium Chlor TAB* 20 MEQ TAB.ER PO ONE (07:51)
[2016-12-16] MEDS: Insulin LISPRO* 1 UNITS UNIT SUBCUT SCH ×4 (08:54→22:31)
[2016-12-16] MEDS: metroNIDAZOLE TAB* 250 MG PO SCH ×2 (09:19→21:50)
[2016-12-16] MEDS: Diltiazem CD CAP* 240 MG PO SCH (09:20)
[2016-12-16] MEDS: buPROPion SR TAB.SR* 150 MG PO SCH ×3 (09:21→21:50)
[2016-12-16] MEDS: MDI INH SCH (09:32)
[2016-12-16] MEDS: VILANTEROL MDI INH SCH (09:32)
[2016-12-16] MEDS: FLUTICASONE INH SCH (09:32)
[2016-12-16] MEDS: Pantoprazole IV* 40 MG IV SCH (12:27)
--- NOTE | 2016-12-16 16:26 | PN ---
Subjective Date of Service: 12/16/16 Interval History: HOSPITALIST PROGRESS NOTE Patient seen and examined at bedside. She feels better today. Abdominal pain is less intense, she passed flatus and feels hungry. Family History: Unchanged from Admission Social History: Unchanged from Admission Past Medical History: Unchanged from Admission Objective Active Medications: Acetaminophen (Tylenol Tab*) 650 mg PO Q4H PRN PRN Reason: pain Last Admin: 12/12/16 20:37 Dose: 650 mg Albuterol (Ventolin 2.5 Mg/3 Ml Neb.Abigail*) 2.5 mg INH Q6H PRN PRN Reason: SOB/WHEEZING Last Admin: 12/12/16 10:57 Dose: 2.5 mg Albuterol (Ventolin Hfa Inhaler*) 2 puff INH Q4H PRN PRN Reason: SOB/WHEEZING Last Admin: 12/12/16 06:08 Dose: 2 puff Albuterol (Ventolin 2.5 Mg/3 Ml Neb.Abigail*) 2.5 mg INH [id number] AWAKE [facility] Last Admin: 12/16/16 15:05 Dose: 2.5 mg Benzonatate (Tessalon Cap*) 200 mg PO Q6H PRN PRN Reason: COUGH Last Admin: 12/12/16 21:11 Dose: 200 mg Bupropion HCl (Wellbutrin Sr Tab*) 150 mg PO TID [facility] Last Admin: 12/16/16 14:42 Dose: 150 mg Dextrose (D50w Syringe 50 Ml*) 12.5 gm IV PUSH .FOR FS < 60 - SS PRN PRN Reason: FS < 60 Diltiazem HCl (Cardizem Cd Cap*) 240 mg PO DAILY [facility] Last Admin: 12/16/16 09:20 Dose: 240 mg Fluticasone/Vilanterol (Breo Ellipta Mdi 100/25(Nf)) 1 puff INH DAILY [facility] Last Admin: 12/16/16 09:32 Dose: 1 puff Heparin Sodium (Porcine) (Heparin Vial(*)) 5,000 units SUBCUT Q8HR [facility] Last Admin: 12/16/16 14:40 Dose: 5,000 units Hydralazine HCl (Apresoline Iv*) 5 mg IV SLOW PU Q6H PRN PRN Reason: SBP>170 Last Admin: 12/15/16 23:52 Dose: 5 mg Insulin Human Lispro (Humalog*) 0 units SUBCUT ACHS JYOTHI PRN Reason: Protocol Last Admin: 12/16/16 12:27 Dose: 2 units Lisinopril (Prinivil Tab*) 10 mg PO BEDTIME JYOTHI Last Admin: 12/15/16 21:55 Dose: 10 mg Metronidazole (Flagyl Tab*) 500 mg PO BID [facility] Last Admin: 12/16/16 09:19 Dose: 500 mg Morphine Sulfate (Morphine Inj (Syringe)*) 2 mg IV Q3H PRN PRN Reason: PAIN Last Admin: 12/15/16 22:05 Dose: 2 mg Ondansetron HCl (Zofran Inj*) 4 mg IV Q6H PRN PRN Reason: NAUSEA Last Admin: 12/14/16 14:50 Dose: 4 mg Pantoprazole Sodium (Protonix Iv*) 40 mg IV Q24H [facility] Last Admin: 12/16/16 12:27 Dose: 40 mg Prochlorperazine Edisylate (Compazine Inj*) 10 mg IV Q6H PRN PRN Reason: NAUSEA/VOMITING Last Admin: 12/11/16 01:17 Dose: 10 mg Simvastatin (Zocor(Nf)) 40 mg PO BEDTIME [facility] Last Admin: 12/15/16 21:55 Dose: 40 mg Throat Lozenges (Chloraseptic Isa*) 1 isa PO Q2H PRN PRN Reason: COUGH Last Admin: 12/11/16 17:07 Dose: 1 isa Tiotropium Ronald (Spiriva Cap.Inh*) 1 cap INH BEDTIME [facility] Last Admin: 12/15/16 20:08 Dose: 1 cap Vital Signs 12/16/16 12/16/16 12/16/16 11:22 15:07 15:45 Temperature 98.5 F Pulse Rate 72 70 68 Respiratory 16 14 14 Rate Blood Pressure 142/60 (mmHg) O2 Sat by Pulse 100 100 97 Oximetry Oxygen Devices in Use Now: None Appearance: Pleasant lady sitting up in bed in NAD. Eyes: No Scleral Icterus Ears/Nose/Mouth/Throat: Mucous Membranes Moist Neck: Trachea Midline Respiratory: Symmetrical Chest Expansion and Respiratory Effort, Clear to Auscultation Cardiovascular: RRR - Normal S1 and S2 Abdominal: - - Soft, mild epigastric tenderness, NG, NR, BS+ Neurological: Alert and Oriented x 3, NL Muscle Strength and Tone Lines/Tubes/Other Access: Clean, Dry and Intact Peripheral IV Nutrition: Taking PO's Result Diagrams: 12/15/16 08:38 12/15/16 08:38 Assess/Plan/Problems-Billing Assessment: Mrs. Bates is a 71yo F with PMH of type 2 DM, PAD, COPD, HTN, HLD, chronic anemia, who presented to ED with c/o N/V and abdominal pain, found to have acute pancreatitis. - Patient Problems (1) Pancreatitis Comment: - Likely gallstone pancreatitis. - Improving. Abdominal pain is less intense - will advance to soft diet. - Lipase down to 114. - Surgery input appreciated - plan for cholecystectomy 12/18/16. (2) Chest pain Comment: - ACS ruled out, but patient does have risk factors for CAD, including PAD. - Stress test was negative. - Echo showed EF 55-60%, no wall motion abnormalities, mild to moderate MR, no significant change from 2016. - Now that we know her chest pain is not cardiac, Plavix is on hold in preparation for surgery. - Suspect her pain is esophageal in nature - will carafate to PPI. (3) COPD exacerbation Comment: - Stable. - Continue bronchodilators and steroids. - Continue supplemental O2. (4) Type 2 diabetes mellitus Comment: - Glipizide on hold at this time. Continue Lispro by SS. (5) GERD (gastroesophageal reflux disease) Comment: - Continue IV pantorpazole. (6) DVT prophylaxis Comment: - SQ heparin. (7) Full code status Status and Disposition: Inpatient for management of gallstones pancreatitis.
[2016-12-16] MEDS: Tiotropium CAP.INH* CAP.INH/18 MCG (USE ORDER SET !) INH SCH (19:40)
[2016-12-16] MEDS: Morphine INJ* 2 MG/ML 1 ML SYRINGE (TWO MG - NEW SYRINGE VERSION) IV PRN (21:49)
[2016-12-16] MEDS: CMCS: Simvastatin TAB(NF) 20 MG TAB PO SCH (21:50)
[2016-12-16] MEDS: Lisinopril TAB* 10 MG PO SCH (21:50)
[2016-12-17] MEDS: Albuterol 2.5 MG/3 ML NEB.SOL* (0.083%) INH SCH ×5 (03:30→20:35)
[2016-12-17] MEDS: Heparin VIAL(*) 5000 UNITS/ML VIAL (FIVE THOUSAND) SUBCUT SCH ×3 (06:09→21:31)
[2016-12-17] MEDS: metroNIDAZOLE TAB* 250 MG PO SCH (09:33)
[2016-12-17] MEDS: MDI INH SCH (09:33)
[2016-12-17] MEDS: buPROPion SR TAB.SR* 150 MG PO SCH ×3 (09:33→21:28)
[2016-12-17] MEDS: Diltiazem CD CAP* 240 MG PO SCH (09:33)
[2016-12-17] MEDS: FLUTICASONE INH SCH (09:33)
[2016-12-17] MEDS: VILANTEROL MDI INH SCH (09:33)
[2016-12-17] MEDS: Insulin LISPRO* 1 UNITS UNIT SUBCUT SCH ×4 (09:33→21:27)
[2016-12-17] MEDS: Pantoprazole IV* 40 MG IV SCH (12:06)
--- NOTE | 2016-12-17 13:29 | PN ---
Subjective Date of Service: 12/17/16 Interval History: HOSPITALIST PROGRESS NOTE Patient seen and examined at bedside. In good spirits today. Abdominal pain is improved, had a small BM yesterday with streaks of blood, tolerating diet well. Family History: Unchanged from Admission Social History: Unchanged from Admission Past Medical History: Unchanged from Admission Objective Active Medications: Acetaminophen (Tylenol Tab*) 650 mg PO Q4H PRN PRN Reason: pain Last Admin: 12/12/16 20:37 Dose: 650 mg Albuterol (Ventolin 2.5 Mg/3 Ml Neb.Abigail*) 2.5 mg INH Q6H PRN PRN Reason: SOB/WHEEZING Last Admin: 12/12/16 10:57 Dose: 2.5 mg Albuterol (Ventolin Hfa Inhaler*) 2 puff INH Q4H PRN PRN Reason: SOB/WHEEZING Last Admin: 12/12/16 06:08 Dose: 2 puff Albuterol (Ventolin 2.5 Mg/3 Ml Neb.Abigail*) 2.5 mg INH [id number] AWAKE [facility] Last Admin: 12/17/16 11:47 Dose: 2.5 mg Benzonatate (Tessalon Cap*) 200 mg PO Q6H PRN PRN Reason: COUGH Last Admin: 12/12/16 21:11 Dose: 200 mg Bupropion HCl (Wellbutrin Sr Tab*) 150 mg PO TID [facility] Last Admin: 12/17/16 09:33 Dose: 150 mg Dexamethasone Sodium Phosphate (Decadron Iv*) 8 mg IV SLOW PU ONCE ONE Stop: 12/18/16 12:31 Dextrose (D50w Syringe 50 Ml*) 12.5 gm IV PUSH .FOR FS < 60 - SS PRN PRN Reason: FS < 60 Diltiazem HCl (Cardizem Cd Cap*) 240 mg PO DAILY [facility] Last Admin: 12/17/16 09:33 Dose: 240 mg Famotidine (Pepcid Iv*) 20 mg IV ONCE ONE Stop: 12/18/16 12:31 Fluticasone/Vilanterol (Breo Ellipta Mdi 100/25(Nf)) 1 puff INH DAILY [facility] Last Admin: 12/17/16 09:33 Dose: 1 puff Heparin Sodium (Porcine) (Heparin Vial(*)) 5,000 units SUBCUT Q8HR [facility] Last Admin: 12/17/16 06:09 Dose: 5,000 units Hydralazine HCl (Apresoline Iv*) 5 mg IV SLOW PU Q6H PRN PRN Reason: SBP>170 Last Admin: 12/15/16 23:52 Dose: 5 mg Insulin Human Lispro (Humalog*) 0 units SUBCUT ACHS JYOTHI PRN Reason: Protocol Last Admin: 12/17/16 12:06 Dose: 4 units Lisinopril (Prinivil Tab*) 10 mg PO BEDTIME [facility] Last Admin: 12/16/16 21:50 Dose: 10 mg Metronidazole (Flagyl Tab*) 500 mg PO BID [facility] Last Admin: 12/17/16 09:33 Dose: 500 mg Morphine Sulfate (Morphine Inj (Syringe)*) 2 mg IV Q3H PRN PRN Reason: PAIN Last Admin: 12/16/16 21:49 Dose: 2 mg Ondansetron HCl (Zofran Inj*) 4 mg IV Q6H PRN PRN Reason: NAUSEA Last Admin: 12/14/16 14:50 Dose: 4 mg Pantoprazole Sodium (Protonix Iv*) 40 mg IV Q24H [facility] Last Admin: 12/17/16 12:06 Dose: 40 mg Prochlorperazine Edisylate (Compazine Inj*) 10 mg IV Q6H PRN PRN Reason: NAUSEA/VOMITING Last Admin: 12/11/16 01:17 Dose: 10 mg Simvastatin (Zocor(Nf)) 40 mg PO BEDTIME [facility] Last Admin: 12/16/16 21:50 Dose: 40 mg Throat Lozenges (Chloraseptic Isa*) 1 isa PO Q2H PRN PRN Reason: COUGH Last Admin: 12/11/16 17:07 Dose: 1 isa Tiotropium [place] (Spiriva Cap.Inh*) 1 cap INH BEDTIME [facility] Last Admin: 12/16/16 19:40 Dose: 1 cap Vital Signs 12/17/16 12/17/16 12/17/16 05:09 08:00 08:08 Temperature 97.8 F Pulse Rate 63 Respiratory 14 Rate Blood Pressure (mmHg) O2 Sat by Pulse 99 100 Oximetry 12/17/16 12/17/16 08:15 11:48 Temperature Pulse Rate 66 Respiratory 16 Rate Blood Pressure 160/62 (mmHg) O2 Sat by Pulse 99 Oximetry Oxygen Devices in Use Now: Nasal Cannula - 2 liters Appearance: Pleasant lady sitting up in bed in NAD, eating breakfast. Eyes: No Scleral Icterus Ears/Nose/Mouth/Throat: Mucous Membranes Moist Neck: Trachea Midline Respiratory: Symmetrical Chest Expansion and Respiratory Effort, Clear to Auscultation Cardiovascular: RRR - Normal S1 and S2 Abdominal: - - Soft, mild epigastric tenderness, NG, NR, BS+ Extremities: No Edema Neurological: Alert and Oriented x 3, NL Muscle Strength and Tone Lines/Tubes/Other Access: Clean, Dry and Intact Peripheral IV Nutrition: Taking PO's Result Diagrams: 12/15/16 08:38 12/15/16 08:38 Assess/Plan/Problems-Billing Assessment: Mrs. Bates is a 71yo F with PMH of type 2 DM, PAD, COPD, HTN, HLD, chronic anemia, who presented to ED with c/o N/V and abdominal pain, found to have acute pancreatitis. - Patient Problems (1) Pancreatitis Comment: - Likely gallstone pancreatitis. - Improving. Abdominal pain is less intense - will advance to low fat diet. - Will continue to monitor for signs of blood in the stool, but suspect secondary to straining from constipation. - Surgery input appreciated - plan for cholecystectomy 12/18/16. (2) Chest pain Comment: - ACS ruled out, but patient does have risk factors for CAD, including PAD. - Stress test was negative. - Echo showed EF 55-60%, no wall motion abnormalities, mild to moderate MR, no significant change from 2016. - Now that we know her chest pain is not cardiac, Plavix is on hold in preparation for surgery. - Suspect her pain is esophageal in nature - will add carafate to PPI. - Patient is optimized for proposed procedure. (3) COPD exacerbation Comment: - Stable. - Continue bronchodilators and steroids. - Continue supplemental O2. (4) Type 2 diabetes mellitus Comment: - Glipizide on hold at this time. Continue Lispro by SS. (5) GERD (gastroesophageal reflux disease) Comment: - Continue IV pantorpazole. (6) DVT prophylaxis Comment: - SQ heparin on hold for surgical procedure. - SCDs. (7) Full code status Status and Disposition: Inpatient for management of gallstones pancreatitis.
[2016-12-17] MEDS: Sucralfate TAB* 1 GM PO SCH (17:00)
[2016-12-17] MEDS: Tiotropium CAP.INH* CAP.INH/18 MCG (USE ORDER SET !) INH SCH (20:35)
[2016-12-17] MEDS: Polyethylene Glycol 3350* 17 GM PACKET PO SCH (21:25)
[2016-12-17] MEDS: Docusate CAP* 100 MG PO SCH (21:28)
[2016-12-17] MEDS: CMCS: Simvastatin TAB(NF) 20 MG TAB PO SCH (21:28)
[2016-12-17] MEDS: Lisinopril TAB* 10 MG PO SCH (21:28)
[2016-12-18] MEDS: Albuterol 2.5 MG/3 ML NEB.SOL* (0.083%) INH SCH ×3 (00:49→09:37)
[2016-12-18] MEDS: hydrALAZINE IV* 20 MG/ML VIAL IV SLOW PU PRN (03:02)
[2016-12-18] MEDS: Morphine INJ* 2 MG/ML 1 ML SYRINGE (TWO MG - NEW SYRINGE VERSION) IV PRN (03:02)
[2016-12-18] MEDS: Heparin VIAL(*) 5000 UNITS/ML VIAL (FIVE THOUSAND) SUBCUT SCH ×2 (03:59→17:21)
[2016-12-18 06:41] LABS: Hematocrit 29 % (35-47); Hemoglobin 9.6 g/dl (12.0-16.0); Mean Corpuscular HGB Conc 33 g/dl (31-36); Mean Corpuscular Hemoglobin 25 pg (27-31); Mean Corpuscular Volume 77 fL (80-97); Mean Platelet Volume 10 um3 (7.4-10.4); Red Blood Count 3.78 10^6/ul (4.0-5.4); Red Cell Distribution Width 17 % (10.5-15); White Blood Count 6.1 10^3/ul (3.5-10.8)
[2016-12-18 06:53] LABS: BUN/Creatinine Ratio 21.3 (8-20); EGFR African American 123.6 (>60); EGFR Non-African American 96.1 (>60); Potassium 3.8 mmol/L (3.5-5.0)
[2016-12-18] MEDS: Insulin LISPRO* 1 UNITS UNIT SUBCUT SCH ×2 (08:51→12:19)
[2016-12-18] MEDS: buPROPion SR TAB.SR* 150 MG PO SCH ×2 (08:51→17:21)
[2016-12-18] MEDS: Polyethylene Glycol 3350* 17 GM PACKET PO SCH (08:51)
[2016-12-18] MEDS: Sucralfate TAB* 1 GM PO SCH ×2 (08:51→13:05)
[2016-12-18] MEDS: Docusate CAP* 100 MG PO SCH (08:51)
[2016-12-18] MEDS: VILANTEROL MDI INH SCH (09:39)
[2016-12-18] MEDS: FLUTICASONE INH SCH (09:39)
[2016-12-18] MEDS: MDI INH SCH (09:39)
[2016-12-18] MEDS: Diltiazem CD CAP* 240 MG PO SCH (09:50)
[2016-12-18] MEDS ORDERED: Famotidine IV* 10 MG/ML 2 ML (20 mg) IV ONE (12:30)
[2016-12-18] MEDS ORDERED: Dexamethasone IV* 4 MG/ML 1 ML (4 MG) IV SLOW PU ONE (12:30)
[2016-12-18] MEDS: Pantoprazole IV* 40 MG IV SCH (12:57)
[2016-12-18] MEDS ORDERED: Clindamycin 900 MG IVPREMIX(* 900 MG/50 ML SDV IV ONE (13:48)
[2016-12-18] MEDS ORDERED: Bupivacaine 0.25% SDV* 30 ML ONE (14:02)
--- NOTE | 2016-12-18 14:09 | PN ---
Progress Note - Progress Note Date of Service: 12/18/16 SOAP: Subjective: Pt seen adn examined. Still with LUQ pain, Some RUQ pain as well, but overall improving. Off Plavix for 4 days. No nausea Objective: af vss a nd o x3 lungs clear abdo: soft/ distended, minimal tenderness L>R, no robound ext: wnl labs noted Assessment: GS pancreatitis, descending colitis. Plan: I recommended laparoscopic cholecystectomy. I discussed the R/B/A to surgery and pt wishes to proceed. We spent time discussing the two diagnoses and their possible relationship. I feel with pt's elevated lipase, CT and US findings, we should do lap alem. Pt agrees and signed consent. Pre op abx Possible d/c home after OR
[2016-12-18] MEDS ORDERED: fentaNYL* 50 MCG/ML 2 ML VIAL (100 MCG VIAL) ONE ×2 (15:23→16:52)
[2016-12-18] MEDS ORDERED: Midazolam* 1 MG/ML 2 ML VIAL (2 MG) ONE (15:23)
--- NOTE | 2016-12-18 15:47 | PN ---
Subjective Date of Service: 12/18/16 Interval History: HOSPITALIST PROGRESS NOTE Patient seen and examined at bedside. No new complaints. Family History: Unchanged from Admission Social History: Unchanged from Admission Past Medical History: Unchanged from Admission Objective Active Medications: Acetaminophen (Tylenol Tab*) 650 mg PO Q4H PRN PRN Reason: pain Last Admin: 12/12/16 20:37 Dose: 650 mg Albuterol (Ventolin 2.5 Mg/3 Ml Neb.Abigail*) 2.5 mg INH Q6H PRN PRN Reason: SOB/WHEEZING Last Admin: 12/12/16 10:57 Dose: 2.5 mg Albuterol (Ventolin Hfa Inhaler*) 2 puff INH Q4H PRN PRN Reason: SOB/WHEEZING Last Admin: 12/12/16 06:08 Dose: 2 puff Benzonatate (Tessalon Cap*) 200 mg PO Q6H PRN PRN Reason: COUGH Last Admin: 12/12/16 21:11 Dose: 200 mg Bupropion HCl (Wellbutrin Sr Tab*) 150 mg PO TID [facility] Last Admin: 12/18/16 08:51 Dose: 150 mg Dextrose (D50w Syringe 50 Ml*) 12.5 gm IV PUSH .FOR FS < 60 - SS PRN PRN Reason: FS < 60 Diltiazem HCl (Cardizem Cd Cap*) 240 mg PO DAILY [facility] Last Admin: 12/18/16 09:50 Dose: 240 mg Docusate Sodium (Colace Cap*) 100 mg PO BID [facility] Last Admin: 12/18/16 08:51 Dose: 100 mg Fluticasone/Vilanterol (Breo Ellipta Mdi 100/25(Nf)) 1 puff INH DAILY [facility] Last Admin: 12/18/16 09:39 Dose: 1 puff Heparin Sodium (Porcine) (Heparin Vial(*)) 5,000 units SUBCUT Q8HR [facility] Last Admin: 12/18/16 03:59 Dose: Not Given Hydralazine HCl (Apresoline Iv*) 5 mg IV SLOW PU Q6H PRN PRN Reason: SBP>170 Last Admin: 12/18/16 03:02 Dose: 5 mg Insulin Human Lispro (Humalog*) 0 units SUBCUT ACHS [facility] PRN Reason: Protocol Last Admin: 12/18/16 12:19 Dose: Not Given Lisinopril (Prinivil Tab*) 10 mg PO BEDTIME [facility] Last Admin: 12/17/16 21:28 Dose: 10 mg Ondansetron HCl (Zofran Inj*) 4 mg IV Q6H PRN PRN Reason: NAUSEA Last Admin: 12/14/16 14:50 Dose: 4 mg Pantoprazole Sodium (Protonix Iv*) 40 mg IV Q24H [facility] Last Admin: 12/18/16 12:57 Dose: 40 mg Polyethylene Glycol/Electrolytes (Miralax*) 17 gm PO 0800,2100 [facility] Last Admin: 12/18/16 08:51 Dose: 17 gm Prochlorperazine Edisylate (Compazine Inj*) 10 mg IV Q6H PRN PRN Reason: NAUSEA/VOMITING Last Admin: 12/11/16 01:17 Dose: 10 mg Simvastatin (Zocor(Nf)) 40 mg PO BEDTIME [facility] Last Admin: 12/17/16 21:28 Dose: 40 mg Sucralfate (Carafate*) 1 gm PO AC [facility] Last Admin: 12/18/16 13:05 Dose: 1 gm Throat Lozenges (Chloraseptic Isa*) 1 isa PO Q2H PRN PRN Reason: COUGH Last Admin: 12/11/16 17:07 Dose: 1 isa Tiotropium [place] (Spiriva Cap.Inh*) 1 cap INH BEDTIME [facility] Last Admin: 12/17/16 20:35 Dose: 1 cap Vital Signs 12/18/16 11:56 Temperature 98.2 F Pulse Rate 65 Respiratory 16 Rate Blood Pressure 146/57 (mmHg) O2 Sat by Pulse 99 Oximetry Oxygen Devices in Use Now: Nasal Cannula - 2 liters Appearance: Pleasant lady sitting up in bed in NAD. Eyes: No Scleral Icterus Ears/Nose/Mouth/Throat: Mucous Membranes Moist Neck: Trachea Midline Respiratory: Symmetrical Chest Expansion and Respiratory Effort, Clear to Auscultation Cardiovascular: RRR - Normal S1 and S2 Neurological: Alert and Oriented x 3, NL Muscle Strength and Tone Lines/Tubes/Other Access: Clean, Dry and Intact Peripheral IV Result Diagrams: 12/18/16 05:32 12/18/16 05:32 Assess/Plan/Problems-Billing Assessment: Mrs. Bates is a 71yo F with PMH of type 2 DM, PAD, COPD, HTN, HLD, chronic anemia, who presented to ED with c/o N/V and abdominal pain, found to have acute pancreatitis. - Patient Problems (1) Pancreatitis Comment: - Likely gallstone pancreatitis. - Improving. Abdominal pain is less intense - will advance to low fat diet. - Will continue to monitor for signs of blood in the stool, but suspect secondary to straining from constipation. - Surgery input appreciated - plan for cholecystectomy today. (2) Chest pain Comment: - ACS ruled out, but patient does have risk factors for CAD, including PAD. - Stress test was negative. - Echo showed EF 55-60%, no wall motion abnormalities, mild to moderate MR, no significant change from 2016. - Now that we know her chest pain is not cardiac, Plavix is on hold in preparation for surgery. - Suspect her pain is esophageal in nature - will add carafate to PPI. - Patient is optimized for proposed procedure. (3) COPD exacerbation Comment: - Stable. - Continue bronchodilators and steroids. - Continue supplemental O2. (4) Type 2 diabetes mellitus Comment: - Glipizide on hold at this time. Continue Lispro by SS. (5) GERD (gastroesophageal reflux disease) Comment: - Continue IV pantorpazole. (6) DVT prophylaxis Comment: - SQ heparin on hold for surgical procedure. - SCDs. (7) Full code status Status and Disposition: Inpatient for management of gallstones pancreatitis.
[2016-12-18] MEDS ORDERED: Ondansetron INJ* 2 MG/ML VIAL ONE (16:12)
[2016-12-18] MEDS ORDERED: Ketorolac INJ* 30 MG/ML 1 ML VIAL ONE (16:12)
[2016-12-18] MEDS ORDERED: Propofol* 10 MG/ML 20 ML BTL IV PUSH ONE (16:12)
[2016-12-18] MEDS ORDERED: Neostigmine Methylsulfate* 2 MG/2 ML SYRINGE ONE (16:12)
[2016-12-18] MEDS ORDERED: Glycopyrrolate IV* 0.2 MG/ML 1 ML VIAL ONE (16:12)
--- NOTE | 2016-12-18 16:30 | PN ---
Progress Note - Progress Note Date of Service: 12/18/16 Note: Brief operative Note: Pre-op: Gallstone pancreatitis Post-op: Same Procedure: Laparoscopic cholecystectomy Surgeon: Dr. Mendez Salesperson New Cars: Lilia Manriquez Anaesthesia: BRYAN EBL: Minimal Fluids: LR 1000 cc Drains: None Catheter: None Findings: See dictated op note
[2016-12-18] MEDS ORDERED: HYDROmorphone INJ* 1 MG/ML CARPUJECT SYRINGE IV PRN (16:38)
[2016-12-18] MEDS ORDERED: fentaNYL* 50 MCG/ML 2 ML VIAL (100 MCG VIAL) IV PRN (16:38)
[2016-12-18] MEDS ORDERED: DiMENhydriNATE IV* 50 MG/ML VIAL IV PUSH PRN (16:38)
[2016-12-18] MEDS ORDERED: HYDROmorphone INJ* 2 MG/ML CARPUJECT SYRINGE IV SLOW PU PRN (16:54)
[2016-12-18] MEDS ORDERED: oxyCODONE/Acetamin 5/325 MG* TAB PO PRN (16:55)
[2016-12-18 18:51] VITALS: BP 132/50
== END 2016-12-18 19:10 | disposition home or self-care (01) | DRG 418 ==
LOC: ED 22:07 → MEDTELE 12-11 00:46 → MED 12-12 17:00
PROVIDERS: ADMIT Hospitalist; ATTEND Internal Medicine
PROC: 0FT44ZZ Resection of Gallbladder, Percutaneous Endoscopic Approach (ICD-10-PCS; principal; 2016-12-18 14:00)
DX: K85.10 Biliary acute pancreatitis without necrosis or infection (principal); J96.11 Chronic respiratory failure with hypoxia; N17.9 Acute kidney failure, unspecified; E11.51 Type 2 diabetes mellitus with diabetic peripheral angiopathy without gangrene; J44.1 Chronic obstructive pulmonary disease with (acute) exacerbation; E87.5 Hyperkalemia; D64.9 Anemia, unspecified; F32.9 Major depressive disorder, single episode, unspecified; E78.5 Hyperlipidemia, unspecified; I10 Essential (primary) hypertension; K57.90 Diverticulosis of intestine, part unspecified, without perforation or abscess without bleeding; M19.90 Unspecified osteoarthritis, unspecified site; G89.29 Other chronic pain; G43.909 Migraine, unspecified, not intractable, without status migrainosus; F41.9 Anxiety disorder, unspecified; R07.9 Chest pain, unspecified; K21.9 Gastro-esophageal reflux disease without esophagitis; I34.0 Nonrheumatic mitral (valve) insufficiency; K52.89 Other specified noninfective gastroenteritis and colitis; N28.1 Cyst of kidney, acquired; M48.00 Spinal stenosis, site unspecified; M54.30 Sciatica, unspecified side; Z95.820 Peripheral vascular angioplasty status with implants and grafts; Z88.1 Allergy status to other antibiotic agents; Z99.81 Dependence on supplemental oxygen; Z83.3 Family history of diabetes mellitus; Z72.89 Other problems related to lifestyle; Z88.0 Allergy status to penicillin; Z88.8 Allergy status to other drugs, medicaments and biological substances; Z87.891 Personal history of nicotine dependence; Z98.51 Tubal ligation status
CPT/HCPCS: 36415; 71010; 74177; 76705; 78452; 80048; 80053; 80061; 83605; 83690; 84484; 85025; 86140; 87045; 87046; 87077; 87493; 87899; 88304; 90686; 93005; 93017; 93306; 94640; 94760; A9270-GY; A9502; J0280; J0360; J0696; J0780; J1100; J1170; J1644; J1885; J1940; J2250; J2270; J2405; J2704; J2785; J3010; Q9967

== ENCOUNTER 2016-12-25 19:16 | Emergency (ER) | payer MEDICARE ==
--- NOTE | 2016-12-25 21:16 | RAD ---
INDICATION: Constipation COMPARISON: None TECHNIQUE: A single view of the abdomen is submitted. FINDINGS: Bones: There are no acute bony findings. Soft tissues: The soft tissues appear normal. The psoas margins are sharp. Bowel gas pattern: There is large amount retained stool. Calcifications: There are no abnormal calcifications. Other: There are clips in gallbladder fossa. There is right iliac arterial stenting. IMPRESSION: MODERATE RETAINED STOOL. POSTSURGICAL CHANGE.
[2016-12-25 21:48] LABS: Hematocrit 33 % (35-47); Hemoglobin 10.6 g/dl (12.0-16.0); Mean Corpuscular HGB Conc 32 g/dl (31-36); Mean Corpuscular Hemoglobin 25 pg (27-31); Mean Corpuscular Volume 78 fL (80-97); Mean Platelet Volume 9 um3 (7.4-10.4); Red Blood Count 4.25 10^6/ul (4.0-5.4); Red Cell Distribution Width 17 % (10.5-15); White Blood Count 9.9 10^3/ul (3.5-10.8)
[2016-12-25 22:00] LABS: Albumin 3.9 g/dL (3.2-5.2); BUN/Creatinine Ratio 27.5 (8-20); C Reactive Protein 31.16 mg/L (< 5.00); Calcium 9.7 mg/dL (8.6-10.3); EGFR African American 77.9 (>60); EGFR Non-African American 60.6 (>60); Globulin 3.3 g/dL (2-4); Potassium 4.4 mmol/L (3.5-5.0); Total Bilirubin 0.3 mg/dL (0.2-1.0); Total Protein 7.2 g/dL (6.4-8.9)
[2016-12-25] MEDS ORDERED: NS 0.9% 1000 ML* 1,000 ML IV ONE (23:09)
[2016-12-26 00:19] LABS: Urine Bilirubin Negative (Negative); Urine Glucose 3+(>=500 mg/dL) (Negative); Urine Nitrite Negative (Negative)
[2016-12-26] MEDS ORDERED: Iodixanol* (CONTRAST) 320 MG/ML 100 ML SDV IV ONE (04:01)
[2016-12-26] MEDS ORDERED: Sodium Phosphate ADULT ENEMA* 118 ml bottle ONE (05:33)
--- NOTE | 2016-12-26 05:58 | ED ---
Parmjit Tolbert Abhishek, scribed for Jass Grewal on 12/26/16 at 0547 . Abdominal Pain/Female - HPI Summary HPI Summary: This patient is a 71 year old F presenting to [facility] accompanied by male with a chief complaint of abd pain since last night. The CC is described as worse since last night. The patient rates the pain 6/10 in severity. Symptoms aggravated by movement. Symptoms alleviated by nothing. Patient reports vomiting , and no BM, nausea since yesterday. PMHx includes colitis. PSHx includes laparoscopic cholecystectomy. SHx no smoking or alcohol. - History of Current Complaint Chief Complaint: EDAbdPain Stated Complaint: VOMITING/ABD PAIN FOLLOWING SURGERY Time Seen by Provider: 12/25/16 22:43 Hx Obtained From: Patient Onset/Duration: Sudden Onset - since last night, Lasting Days - last night, Still Present Timing: Constant Severity Initially: Moderate Severity Currently: Moderate Pain Intensity: 6 Pain Scale Used: 0-10 Numeric Aggravating Factor(s): Nothing Alleviating Factor(s): Nothing Associated Signs and Symptoms: Positive: Nausea, Vomiting, Other: - no Bowel movement Allergies/Adverse Reactions: Allergies Allergy/AdvReac Type Severity Reaction Status Date / Time Azithromycin [From Zithromax] Allergy Mild Hives Verified 12/25/16 19:31 Levofloxacin [From Levaquin] Allergy Mild Hives Verified 12/25/16 19:31 Penicillins Allergy Mild Hives Verified 12/25/16 19:31 Atorvastatin AdvReac Mild Diarrhea Verified 12/25/16 19:31 PMH/Surg Hx/FS Hx/Imm Hx Endocrine/Hematology History: Reports: Hx Blood Disorders, Hx Diabetes, Hx Anemia Denies: Hx Thyroid Disease Cardiovascular History: Reports: Hx Angina, Hx Coronary Artery Disease, Hx Hypercholesterolemia, Hx Hypertension - ON MEDS, Hx Myocardial Infarction, Other Cardiovascular Problems/Disorders - 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 Denies: Hx Pacemaker/ICD Respiratory History: Reports: Hx Asthma, Hx Chronic Bronchitis, Hx Pneumonia Comment Only: Hx Chronic Obstructive Pulmonary Disease (COPD) - on home O2 - 2 L at night GI History: Reports: Hx Diverticulosis, Hx Ulcer History: Denies: Hx Dialysis, Hx Renal Disease Musculoskeletal History: Reports: Hx Arthritis, Hx Back Problems - chronic pain , Other Musculoskeletal History - shoulder pain (rotator cuff) Sensory History: Reports: Hx Contacts or Glasses Denies: Hx Hearing Aid Opthamlomology History: Reports: Hx Contacts or Glasses Neurological History: Reports: Hx Migraine, Other Neuro Impairments/Disorders - PAIN CLINIC PATIENT, spinal stenosis, sciatica Psychiatric History: Reports: Hx Anxiety, Hx Depression Denies: Hx Panic Disorder - Surgical History Surgery Procedure, Year, and Place: TUBAL LIGATION, FATTY MASS FROM L THIGH - Immunization History Date of Tetanus Vaccine: unk Date of Influenza Vaccine: 2015 Infectious Disease History: No Infectious Disease History: Denies: Hx Hepatitis, Hx Human Immunodeficiency Virus (HIV), History Other Infectious Disease, Traveled Outside the [place] in Last 30 Days - Family History Known Family History: Positive: Diabetes Negative: Cardiac Disease, Hypertension - Social History Alcohol Use: Rare Hx Substance Use: No Substance Use Type: Reports: None Smoking Status (MU): Former Smoker Type: Cigarettes Amount Used/How Often: 1 ppd Length of Time of Smoking/Using Tobacco: 50 yrs Have You Smoked in the Last Year: No Review of Systems Constitutional: Negative Eyes: Negative ENT: Negative Cardiovascular: Negative Respiratory: Negative Positive: Abdominal Pain, Vomiting, Nausea, Other - no BM Genitourinary: Negative Musculoskeletal: Negative Skin: Negative Neurological: Negative Psychological: Normal All Other Systems Reviewed And Are Negative: Yes Physical Exam - Summary Physical Exam Summary: Appearance: Well appearing, no pain distress Skin: warm, dry, reflects adequate perfusion Head/face: normal Eyes: EOMI, FABRIZIO ENT: normal Neck: supple, nontender Respiratory: CTA, breath sounds present Cardiovascular: RRR, pulses symmetrical Abdomen: Diffuse abd tenderness Bowel: present Musculoskeletal: normal, strength/ROM intact Neuro: normal, sensory motor intact, A&Ox3 Triage Information Reviewed: Yes Vital Signs On Initial Exam: Initial Vitals Temp Pulse Resp BP Pulse Ox 97.3 F 74 14 117/59 97 12/25/16 19:27 12/25/16 19:27 12/25/16 19:27 12/25/16 19:27 12/25/16 19:27 Vital Signs Reviewed: Yes - [place] Coma Scale Coma Scale Total: 15 Diagnostics - Vital Signs Vital Signs Temp Pulse Resp BP Pulse Ox 12/26/16 03:26 64 15 94 12/26/16 02:00 63 15 149/48 92 12/26/16 01:00 65 16 148/66 94 12/26/16 00:01 63 17 139/55 96 12/26/16 00:00 63 15 96 12/25/16 23:30 65 13 148/49 96 12/25/16 23:01 67 19 121/39 96 12/25/16 23:00 68 18 96 12/25/16 22:50 15 12/25/16 22:24 98.2 F 68 22 133/52 96 12/25/16 19:27 97.3 F 74 14 117/59 97 - Laboratory Lab Results: Lab Results 12/25/16 12/25/16 12/25/16 Range/Units 21:26 21:26 21:26 WBC 9.9 (3.5-10.8) 10^3/ul RBC 4.25 (4.0-5.4) 10^6/ul Hgb 10.6 L (12.0-16.0) g/dl Hct 33 L (35-47) % MCV 78 L (80-97) fL MCH 25 L (27-31) pg MCHC 32 (31-36) g/dl RDW 17 H (10.5-15) % Plt Count 308 (150-450) 10^3/ul MPV 9 (7.4-10.4) um3 Neut % (Auto) 68.7 (38-83) % Lymph % (Auto) 18.5 L (25-47) % [place] % (Auto) 7.6 (1-9) % Eos % (Auto) 3.7 (0-6) % Baso % (Auto) 1.5 (0-2) % Absolute Neuts (auto) 6.8 (1.5-7.7) 10^3/ul Absolute Lymphs (auto) 1.8 (1.0-4.8) 10^3/ul Absolute Monos (auto) 0.8 (0-0.8) 10^3/ul Absolute Eos (auto) 0.4 (0-0.6) 10^3/ul Absolute Basos (auto) 0.1 (0-0.2) 10^3/ul Absolute Nucleated RBC 0 10^3/ul Nucleated RBC % 0 Sodium 130 L (133-145) mmol/L Potassium 4.4 (3.5-5.0) mmol/L Chloride 95 L (101-111) mmol/L Carbon Dioxide 27 (22-32) mmol/L Anion Gap 8 (2-11) mmol/L BUN 25 H (6-24) mg/dL Creatinine 0.91 (0.51-0.95) mg/dL Est GFR ( Amer) 77.9 (>60) Est GFR (Non-Af Amer) 60.6 (>60) BUN/Creatinine Ratio 27.5 H (8-20) Glucose 274 H (70-100) mg/dL Lactic Acid 1.2 (0.5-2.0) mmol/L Calcium 9.7 (8.6-10.3) mg/dL Total Bilirubin 0.30 (0.2-1.0) mg/dL AST 10 L (13-39) U/L ALT 12 (7-52) U/L Alkaline Phosphatase 81 (34-104) U/L Troponin I (<0.04) ng/mL C-Reactive Protein 31.16 H (< 5.00) mg/L Total Protein 7.2 (6.4-8.9) g/dL Albumin 3.9 (3.2-5.2) g/dL Globulin 3.3 (2-4) g/dL Albumin/Globulin Ratio 1.2 (1-3) Lipase 53 (11.0-82.0) U/L Urine Color Urine Appearance Urine pH (5-9) Ur Specific [place] (1.010-1.030) Urine Protein (Negative) Urine Ketones (Negative) Urine Blood (Negative) Urine Nitrate (Negative) Urine Bilirubin (Negative) Urine Urobilinogen (Negative) Ur Leukocyte Esterase (Negative) Urine Glucose (Negative) 12/25/16 12/26/16 Range/Units 23:10 00:01 WBC (3.5-10.8) 10^3/ul RBC (4.0-5.4) 10^6/ul Hgb (12.0-16.0) g/dl Hct (35-47) % MCV (80-97) fL MCH (27-31) pg MCHC (31-36) g/dl RDW (10.5-15) % Plt Count (150-450) 10^3/ul MPV (7.4-10.4) um3 Neut % (Auto) (38-83) % Lymph % (Auto) (25-47) % [place] % (Auto) (1-9) % Eos % (Auto) (0-6) % Baso % (Auto) (0-2) % Absolute Neuts (auto) (1.5-7.7) 10^3/ul Absolute Lymphs (auto) (1.0-4.8) 10^3/ul Absolute Monos (auto) (0-0.8) 10^3/ul Absolute Eos (auto) (0-0.6) 10^3/ul Absolute Basos (auto) (0-0.2) 10^3/ul Absolute Nucleated RBC 10^3/ul Nucleated RBC % Sodium (133-145) mmol/L Potassium (3.5-5.0) mmol/L Chloride (101-111) mmol/L Carbon Dioxide (22-32) mmol/L Anion Gap (2-11) mmol/L BUN (6-24) mg/dL Creatinine (0.51-0.95) mg/dL Est GFR ( Amer) (>60) Est GFR (Non-Af Amer) (>60) BUN/Creatinine Ratio (8-20) Glucose (70-100) mg/dL Lactic Acid (0.5-2.0) mmol/L Calcium (8.6-10.3) mg/dL Total Bilirubin (0.2-1.0) mg/dL AST (13-39) U/L ALT (7-52) U/L Alkaline Phosphatase (34-104) U/L Troponin I 0.00 (<0.04) ng/mL C-Reactive Protein (< 5.00) mg/L Total Protein (6.4-8.9) g/dL Albumin (3.2-5.2) g/dL Globulin (2-4) g/dL Albumin/Globulin Ratio (1-3) Lipase (11.0-82.0) U/L Urine Color Yellow Urine Appearance Clear Urine pH 5.0 (5-9) Ur Specific [place] 1.025 (1.010-1.030) Urine Protein Negative (Negative) Urine Ketones Negative (Negative) Urine Blood Negative (Negative) Urine Nitrate Negative (Negative) Urine Bilirubin Negative (Negative) Urine Urobilinogen Negative (Negative) Ur Leukocyte Esterase Negative (Negative) Urine Glucose 3+(>=500 mg/dl) H (Negative) Result Diagrams: 12/25/16 21:26 12/25/16 21:26 Lab Statement: Any lab studies that have been ordered have been reviewed, and results considered in the medical decision making process. - Radiology Abdomin X-ray Radiology Interpretation Completed By: Radiologist - Abd x-ray reveals MODERATE RETAINED STOOL. POSTSURGICAL CHANGE. ED physician has reviewed this radiology report and agrees. - CT CT A/P CT Interpretation Completed By: Radiologist - CT A/P reveals Trace of residual fluid in the gallbladder fossa possibly reflecting residual postsurgical blood or biloma. Infected fluid cannot be stated however, there is no loculated drainable fluid collection. ED physician has reviewed this radiology report and agrees. - EKG 2310 EKG Interpretation: An EKG reveals sinus rhythm; no acute changes Abdominal Pain Fem Course/Dx - Course Course Of Treatment: This patient is a 71 year old F presenting to [facility] accompanied by male with a chief complaint of abd pain since last night. Patient reports vomiting, and no BM, nausea since yesterday. CT A/P reveals Trace of residual fluid in the gallbladder fossa possibly reflecting residual postsurgical blood or biloma. Infected fluid cannot be stated however, there is no loculated drainable fluid collection. Abd x-ray reveals MODERATE RETAINED STOOL. POSTSURGICAL CHANGE. An EKG reveals sinus rhythm; no acute changes. Patient will be (discharged). Dx is pt has abd pain and constipation. Pt should follow up with PCP within 3 days. Pt is agreeable with this plan. - Diagnoses Differential Diagnosis: Positive: Diverticulitis, Gall Bladder Disease, Pancreatitis, Renal Colic, Urinary Tract Infection Provider Diagnoses: Abdominal pain, Constipation Discharge - Discharge Plan Condition: Stable Disposition: HOME Patient Education Materials: Constipation (ED), Abdominal Pain (ED) Referrals: Sammy Gastelum MD [Primary Care Provider] - (Follow up with PCP within 3 days.) The documentation as recorded by the Parmjit prado Abhishek accurately reflects the service I personally performed and the decisions made by Carmina herrera Emmanuel.
[2016-12-26 06:25] VITALS: BP 139/86
--- NOTE | 2016-12-26 08:10 | RAD ---
CLINICAL HISTORY: Diffuse tenderness, recent cholecystectomy COMPARISON: December 10, 2016, May 13, 2015 TECHNIQUE: Multiple contiguous axial CT scans were obtained of the abdomen and pelvis after the administration of intravenous contrast. Coronal and sagittal multiplanar reformations are submitted for review. Oral contrast was administered. Delayed images were obtained through the abdomen and pelvis. FINDINGS: LUNG BASES: The lung bases are clear. LIVER: The liver measures 19 cm in long axis. BILE DUCTS: The common duct measures 1.1 cm. There is no intrahepatic biliary dilatation. GALLBLADDER: The gallbladder is not visualized. Surgical clips are noted in the gallbladder fossa. There is displacement of fluid within the gallbladder fossa. PANCREAS: The pancreas is normal, without mass or ductal dilatation. The peripancreatic inflammatory change noted on the previous examination is no clearly evident. SPLEEN: Normal in size and appearance. UPPER GI TRACT: Evaluation of the gastrointestinal tract is limited by incomplete gastric distention. The upper GI tract is unremarkable. SMALL BOWEL AND MESENTERY: The small bowel is normal in contour, course, and caliber. There is no obstruction or dilatation. COLON: The colon is normal in contour, course, caliber. There is no pericolonic inflammatory change. There is large amount of stool throughout the colon. Chronic inflammatory change noted on the previous examination is no longer clearly evident. ADRENALS: There are bilateral adrenal nodules, stable from a 2015. On the previous examination, these have the appearance of adenomas. KIDNEYS: Multiple renal cysts are noted. BLADDER: The bladder is smooth in contour. PELVIC ORGANS: The uterus and adnexa are grossly normal for technique. AORTA: There is calcific atherosclerotic disease of the abdominal aorta and its branches, without aneurysmal dilatation IVC: Unremarkable LYMPH NODES: There is no lymphadenopathy by size criteria. ABDOMINAL WALL: There is no evidence for abdominal wall hernia. BONES AND SOFT TISSUES: Degenerative changes are noted. There are chronic appearing compression deformities of T11 L4 with a Schmorl's node versus superior endplate fracture of L2 OTHER: None IMPRESSION: 1. STATUS POST CHOLECYSTECTOMY WITH TRACE FLUID IN THE GALLBLADDER FOSSA. 2. THERE HAS BEEN INTERVAL RESOLUTION OF THE PERIPANCREATIC AND PERISPLENIC INFLAMMATORY CHANGE NOTED ON THE MOST RECENT PREVIOUS EXAMINATION. 3. THERE IS ECTASIA OF THE COMMON DUCT UP TO 1.1 CM. THERE IS NO INTRAHEPATIC BILIARY DILATATION.
== END 2016-12-26 06:24 | disposition home or self-care (01) ==
LOC: ED 19:16
DX: R10.9 Unspecified abdominal pain (principal); K59.00 Constipation, unspecified; F41.9 Anxiety disorder, unspecified; F32.9 Major depressive disorder, single episode, unspecified; Z87.891 Personal history of nicotine dependence; I25.10 Atherosclerotic heart disease of native coronary artery without angina pectoris; E78.00 Pure hypercholesterolemia, unspecified; J44.9 Chronic obstructive pulmonary disease, unspecified; Z99.81 Dependence on supplemental oxygen; E11.9 Type 2 diabetes mellitus without complications; D64.9 Anemia, unspecified; Z88.0 Allergy status to penicillin; I10 Essential (primary) hypertension; I25.2 Old myocardial infarction
CPT/HCPCS: 36415; 74000; 74177; 80053; 81003; 83605; 83690; 84484; 85025; 86140; 93005; 96374; 99283; A9270-GY; Q9967

== ENCOUNTER 2018-06-13 14:59 | Emergency (ER) | payer MEDICARE ==
[2018-06-13 16:44] LABS: ABS Basophils 0.1 10^3/ul (0-0.2); ABS Eosinophils 0 10^3/ul (0-0.6); ABS Monocytes 0.9 10^3/ul (0-0.8); ABS Neutrophils 9.6 10^3/ul (1.5-7.7); ABS Nucleated RBC 0 10^3/ul; Eosinophil % 0.1 %; Hematocrit 41 % (33-41); Hemoglobin 13.6 g/dL (12.0-16.0); Lymphocyte % 15.8 %; Mean Corpuscular HGB Conc 33 g/dL (31-36); Mean Corpuscular Hemoglobin 28 pg (27-31); Mean Corpuscular Volume 84 fL (80-97); Mean Platelet Volume 9.6 fL (7.4-10.4); Nucleated Red Blood Cells % 0; Platelet Count 230 10^3/uL (150-450); Red Blood Count 4.88 10^6 /uL (3.70-4.87); Red Cell Distribution Width 14 % (10.5-15); White Blood Count 12.6 10^3/uL (3.5-10.8)
[2018-06-13 16:53] LABS: Activated Partial Thrombo Time 26.2 seconds (26.0-36.3); INR 0.9 (0.77-1.02)
[2018-06-13 17:03] LABS: Albumin 4.3 g/dL (3.2-5.2); Albumin/Globulin Ratio 1.4 (1-3); BUN/Creatinine Ratio 31.7 (8-20); EGFR Non-African American 43.8 (>60); Globulin 3.1 g/dL (2-4); Total Bilirubin 0.4 mg/dL (0.2-1.0); Total Protein 7.4 g/dL (6.4-8.9)
[2018-06-13] MEDS ORDERED: NS 0.9% 1000 ML** 2,000 ML IV ONE (17:13)
[2018-06-13] MEDS ORDERED: Ondansetron INJ* 2 MG/ML VIAL IV ONE (17:14)
[2018-06-13] MEDS ORDERED: Morphine 4 MG/ML VIAL (1 ml) 4 MG/ML VIAL IV ONE (17:14)
--- NOTE | 2018-06-13 17:14 | ED ---
GI/ HPI - HPI Summary HPI Summary: This pt is a 73 y/[facility] [facility] since 03:00 today. Pt reports she went out to eat lunch for her daughter's birthday. She notes that by the time she got home yesterday she was vomiting and thought it might be food related. Additionally last night pt had some episodes of diarrhea , described as small in quantity. Pt went to bed early yesterday at around 18: 00. She notes that at about 03:00 today she had abdominal cramping and got up to go to the bathroom. Pt reports having rectal bleeding without stools, described as bright red blood. She states having about 6 episodes of this and maybe about 1 teaspoon of blood each time. Today pt has been sleeping most of the day and got up to finish her taxes today. Pt went to the bathroom and had " a lot of blood" again, notes it was on the toilet paper and on her hand. She states that this has been the most amount of blood so far. She reports feeling lightheadedness, cramping in the lower abdomen/pelvic area, nausea. Pt had a few sips of water but felt nauseous. She called her PCP and was told to come to the ED. Denies recent antibiotics in the last couple of months. Pt has hx of GI bleed in 2016, was thought to have colitis and pancreatitis, but ended having a cholecystectomy. - History of Current Complaint Chief Complaint: EDGIBleed Time Seen by Provider: 06/13/18 17:03 Stated Complaint: RECTAL BLEEDING PER PT Hx Obtained From: Patient Onset/Duration: Started Hours Ago, Still Present Timing: Lasting Hours Current Severity: Mild Pain Intensity: 3 Location of Pain: Other - lower abdomen/pelvic area Associated Signs and Symptoms: Positive: Nausea, Diarrhea, Lightheadedness, Abdominal Pain, Other: - Rectal bleeding. Negative: Fever Aggravating Factor(s): Nothing Alleviating Factor(s): Nothing - Additional Pertinent History Primary Care Physician: NATASHA - Allergy/Home Medications Allergies/Adverse Reactions: Allergies Allergy/AdvReac Type Severity Reaction Status Date / Time atorvastatin Allergy Diarrhea Verified 06/13/18 16:44 azithromycin Allergy Hives Verified 06/13/18 16:44 levofloxacin Allergy Hives Verified 06/13/18 16:44 Penicillins Allergy Hives Verified 06/13/18 16:44 Home Medications: Home Medications Umeclidinium 62.5 MDI(NF) [Incruse ELLIPTA MDI (NF)] 1 puff INH DAILY 06/13/18 [ History Confirmed 06/13/18] PMH/Surg Hx/FS Hx/Imm Hx Endocrine/Hematology History: Reports: Hx Blood Disorders, Hx Diabetes, Hx Anemia Denies: Hx Thyroid Disease Cardiovascular History: Reports: Hx Angina, Hx Coronary Artery Disease, Hx Hypercholesterolemia, Hx Hypertension - ON MEDS, Hx Myocardial Infarction, Other Cardiovascular Problems/Disorders - 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 Denies: Hx Pacemaker/ICD Respiratory History: Reports: Hx Asthma, Hx Chronic Bronchitis, Hx Chronic Obstructive Pulmonary Disease (COPD) - on home O2 - 2 L at night, Hx Pneumonia GI History: Reports: Hx Diverticulosis, Hx Ulcer History: Denies: Hx Dialysis, Hx Renal Disease Musculoskeletal History: Reports: Hx Arthritis, Hx Back Problems - chronic pain , Other Musculoskeletal History - shoulder pain (rotator cuff) Sensory History: Reports: Hx Contacts or Glasses Denies: Hx Hearing Aid Opthamlomology History: Reports: Hx Contacts or Glasses Neurological History: Reports: Hx Migraine, Other Neuro Impairments/Disorders - PAIN CLINIC PATIENT, spinal stenosis, sciatica Psychiatric History: Reports: Hx Anxiety, Hx Depression Denies: Hx Panic Disorder - Surgical History Surgery Procedure, Year, and Place: TUBAL LIGATION, FATTY MASS FROM L THIGH, STENTS IN LEGS-KEEPING VEINS OPEN. GB - Immunization History Date of Tetanus Vaccine: unk Date of Influenza Vaccine: 2015 Infectious Disease History: No Infectious Disease History: Denies: Hx Hepatitis, Hx Human Immunodeficiency Virus (HIV), History Other Infectious Disease, Traveled Outside the [place] in Last 30 Days - Family History Known Family History: Positive: Diabetes Negative: Cardiac Disease, Hypertension - Social History Alcohol Use: Rare Hx Substance Use: No Substance Use Type: Reports: None Hx Tobacco Use: No Smoking Status (MU): Former Smoker Type: Cigarettes Amount Used/How Often: 1 ppd Length of Time of Smoking/Using Tobacco: 50 yrs Have You Smoked in the Last Year: No Review of Systems Negative: Fever Gastrointestinal: Other - POS: rectal bleeding Positive: Abdominal Pain, Diarrhea, Nausea Neurological: Other - POS: lightheadedness All Other Systems Reviewed And Are Negative: Yes Physical Exam - Summary Physical Exam Summary: Appearance: Well-appearing, Well-nourished, lying in bed comfortably Skin: Warm, dry, no obvious rash Eyes: sclera anicteric, no conjunctival pallor ENT: mucous membranes moist, pharynx appears normal Neck: Supple, nontender Respiratory: Clear to auscultation, no signs of respiratory distress Cardiovascular: Normal S1, S2. No murmurs. Normal distal pulses in tibial and radial bilaterally. Abdomen: Soft, nontender, normal active bowel sounds present Rectal exam: friable mucosa around the anus with bleeding. Musculoskeletal: Normal, Strength/ROM Intact Neurological: A&Ox3, awake and alert, mentation is normal, speech is fluent and appropriate Psychiatric: affect is normal, does not appear anxious or depressed Triage Information Reviewed: Yes Vital Signs On Initial Exam: Initial Vitals Temp Pulse Resp BP Pulse Ox 98.7 F 84 16 129/92 94 06/13/18 15:02 06/13/18 15:02 06/13/18 15:02 06/13/18 15:02 06/13/18 15:02 Vital Signs Reviewed: Yes Diagnostics - Vital Signs Vital Signs Temp Pulse Resp BP Pulse Ox 06/13/18 15:51 98.8 F 78 17 145/69 95 06/13/18 15:02 98.7 F 84 16 129/92 94 - Laboratory Lab Results: Lab Results 06/13/18 06/13/18 06/13/18 Range/Units 16:37 16:37 16:37 WBC 12.6 H (3.5-10.8) 10^3/uL RBC 4.88 H (3.70-4.87) 10^6 /uL Hgb 13.6 (12.0-16.0) g/dL Hct 41 (33-41) % MCV 84 (80-97) fL MCH 28 (27-31) pg MCHC 33 (31-36) g/dL RDW 14 (10.5-15) % Plt Count 230 (150-450) 10^3/uL MPV 9.6 (7.4-10.4) fL Neut % (Auto) 76.1 % Lymph % (Auto) 15.8 % [place] % (Auto) 7.1 % Eos % (Auto) 0.1 % Baso % (Auto) 0.9 % Absolute Neuts (auto) 9.6 H (1.5-7.7) 10^3/ul Absolute Lymphs (auto) 2.0 (1.0-4.8) 10^3/ul Absolute Monos (auto) 0.9 H (0-0.8) 10^3/ul Absolute Eos (auto) 0 (0-0.6) 10^3/ul Absolute Basos (auto) 0.1 (0-0.2) 10^3/ul Absolute Nucleated RBC 0 10^3/ul Nucleated RBC % 0 INR (Anticoag Therapy) 0.90 (0.77-1.02) APTT 26.2 (26.0-36.3) seconds Sodium 139 (135-145) mmol/L Potassium 5.0 (3.5-5.0) mmol/L Chloride 100 L (101-111) mmol/L Carbon Dioxide 32 (22-32) mmol/L Anion Gap 7 (2-11) mmol/L BUN 38 H (6-24) mg/dL Creatinine 1.20 H (0.51-0.95) mg/dL Est GFR ( Amer) 53.0 (>60) Est GFR (Non-Af Amer) 43.8 (>60) BUN/Creatinine Ratio 31.7 H (8-20) Glucose 235 H (70-100) mg/dL Calcium 10.0 (8.6-10.3) mg/dL Total Bilirubin 0.40 (0.2-1.0) mg/dL AST 12 L (13-39) U/L ALT 12 (7-52) U/L Alkaline Phosphatase 72 (34-104) U/L Total Protein 7.4 (6.4-8.9) g/dL Albumin 4.3 (3.2-5.2) g/dL Globulin 3.1 (2-4) g/dL Albumin/Globulin Ratio 1.4 (1-3) Blood Type Antibody Screen 06/13/18 Range/Units 16:37 WBC (3.5-10.8) 10^3/uL RBC (3.70-4.87) 10^6 /uL Hgb (12.0-16.0) g/dL Hct (33-41) % MCV (80-97) fL MCH (27-31) pg MCHC (31-36) g/dL RDW (10.5-15) % Plt Count (150-450) 10^3/uL MPV (7.4-10.4) fL Neut % (Auto) % Lymph % (Auto) % [place] % (Auto) % Eos % (Auto) % Baso % (Auto) % Absolute Neuts (auto) (1.5-7.7) 10^3/ul Absolute Lymphs (auto) (1.0-4.8) 10^3/ul Absolute Monos (auto) (0-0.8) 10^3/ul Absolute Eos (auto) (0-0.6) 10^3/ul Absolute Basos (auto) (0-0.2) 10^3/ul Absolute Nucleated RBC 10^3/ul Nucleated RBC % INR (Anticoag Therapy) (0.77-1.02) APTT (26.0-36.3) seconds Sodium (135-145) mmol/L Potassium (3.5-5.0) mmol/L Chloride (101-111) mmol/L Carbon Dioxide (22-32) mmol/L Anion Gap (2-11) mmol/L BUN (6-24) mg/dL Creatinine (0.51-0.95) mg/dL Est GFR ( Amer) (>60) Est GFR (Non-Af Amer) (>60) BUN/Creatinine Ratio (8-20) Glucose (70-100) mg/dL Calcium (8.6-10.3) mg/dL Total Bilirubin (0.2-1.0) mg/dL AST (13-39) U/L ALT (7-52) U/L Alkaline Phosphatase (34-104) U/L Total Protein (6.4-8.9) g/dL Albumin (3.2-5.2) g/dL Globulin (2-4) g/dL Albumin/Globulin Ratio (1-3) Blood Type Pending Antibody Screen Pending Result Diagrams: 06/13/18 16:37 06/13/18 16:37 Lab Statement: Any lab studies that have been ordered have been reviewed, and results considered in the medical decision making process. - CT Abdomen/Pelvis CT CT Interpretation Completed By: Radiologist Summary of CT Findings: IMPRESSION: 1. Infectious colitis distal transverse through mid sigmoid colon. 2. Enhancing left renal lesions which show interval enlargement concerning for developing neoplasms. Consider renal protocol MRI for further characterization. 3. Bosniak type I renal cysts. No followup indicated. 4. Left adrenal nodule which does not meet criteria for an adenoma. Followup adrenal protocol CT or MRI in [address] Asencio has reviewed this report. - EKG 16:23 Cardiac Rate: NL - at 83 bpm EKG Rhythm: Sinus Rhythm Summary of EKG Findings: NSR at 83 BPM, P waves, QRS complex, and T waves are within normal limits, T waves and intervals are normal, no ischemic changes. This is a normal EKG. GIGU Course/Dx - Course Assessment/Plan: Pt is a 73 y/o female who presents to the ED c/o rectal bleeding since 03:00 today, described as bright red blood. She notes she has bleeding without stools. She reports feeling lightheadedness, cramping in the lower abdomen/pelvic area, nausea. Lab results show WBC of 12.6, creatinine of 1.2, glucose of 235. Abdomen/Pelvis CT shows 1. Infectious colitis distal transverse through mid sigmoid colon. 2. Enhancing left renal lesions which show interval enlargement concerning for developing neoplasms. Consider renal protocol MRI for further characterization. 3. Bosniak type I renal cysts. No followup indicated. 4. Left adrenal nodule which does not meet criteria for an adenoma. Followup adrenal protocol CT or MRI in 1 year recommended. In the ED course the pt was given IV fluids, morphine, zofran, compazine. Pt will be discharged home with follow up from her PCP. She was given a prescription for Zofran. She was instructed to return to the ED for any worsening or new symptoms. - Diagnoses Differential Diagnoses - Female: Colitis Provider Diagnoses: Gastroenteritis, Colitis Discharge - Sign-Out/Discharge Documenting (check all that apply): Patient Departure - Discharge home Patient Received Moderate/Deep Sedation with Procedure: No - Discharge Plan Condition: Good Disposition: HOME Prescriptions: Ondansetron ODT TAB* [Zofran 4 MG Odt TAB*] 8 mg PO Q6H PRN #12 tab.odt PRN Reason: Nausea Patient Education Materials: Gastroenteritis (ED) Referrals: Sammy Gastelum MD [Primary Care Provider] - 3 Days (if not improving) Additional Instructions: The tests we did here did not show any sign of a serious intra abdominal infection or cause of bleeding. The bleeding appears to be coming from irritation about the anus and should resolve fairly quickly after your belly settles down and the diarrhea stops. This may take a few days. Make sure to rest and get plenty of fluids to stay hydrated, use the zofran as needed for nausea. If you start feeling worse, we should see you back here. Unrelated to the problems that lead you here, there are some changes in the right kidney that will need to be checked on further. Contact your regular doctor to have that done in the next few weeks. - Billing Disposition and Condition Condition: GOOD Disposition: Home - Attestation Statements Document Initiated by Tierra: Yes Documenting Zariiblien: Zofia Palm Provider For Whom Tierra is Documenting (Include Credential): Jose Raul Asencio MD Scribe Attestation: Zofia Tolbert scribed for Jose Raul Asencio MD on 06/14/18 at 1416. Scribe Documentation Reviewed: Yes Provider Attestation: The documentation as recorded by the Zofia prado accurately reflects the service I personally performed and the decisions made by , Jose Raul Asencio MD Status of Scrshakira Document: Viewed
[2018-06-13] MEDS ORDERED: PROCHLORPERAZINE INJ 5 MG/ML 2 ML VIAL IV ONE (18:44)
[2018-06-13] MEDS ORDERED: Iodixanol* (CONTRAST) 320 MG/ML 100 ML SDV IV ONE (20:17)
[2018-06-13 21:38] VITALS: BP 155/65
== END 2018-06-13 21:38 | disposition home or self-care (01) ==
LOC: ED 14:59
DX: K52.9 Noninfective gastroenteritis and colitis, unspecified (principal); R11.0 Nausea; R19.7 Diarrhea, unspecified; R42 Dizziness and giddiness; R10.9 Unspecified abdominal pain; Z87.19 Personal history of other diseases of the digestive system; I25.10 Atherosclerotic heart disease of native coronary artery without angina pectoris; I10 Essential (primary) hypertension; I25.2 Old myocardial infarction; J44.9 Chronic obstructive pulmonary disease, unspecified; Z87.891 Personal history of nicotine dependence
CPT/HCPCS: 36415; 74177; 80053; 85025; 85610; 85730; 86850; 86900; 86901; 93005; 96361; 96374; 96375; 99283; J0780; J2270; J2405; Q9967

== ENCOUNTER 2019-03-15 10:56 | Emergency (ER) | payer MEDICARE ==
--- OUTSIDE RECORDS SUMMARY | 2019-03-15 11:10 | XMS REPORT | Continuity of Care Document ---
:1945 External Reference #:[id number] Author Name Rancho Escalera MD (transmitted by agent of provider Jeanne Stokes) Address [address], [address] [place] [id number] Problems Active Problems Provider Date Intermittent claudication due to [facility]rain [facility], [facility], Onset: 2015 atherosclerosis of [place] artery of [facility] limb Lumbar spondylolisthesis aRfael Mcgee M.D. Onset: 10/22/2017 Neurogenic claudication co-occurrent Rafael Mcgee M.D. Onset: 10/22/2017 and due to spinal stenosis of lumbar region Peripheral vascular disease Amber Crain MD, [facility], Onset: 08/02/2017 [facility] Social History Type Date Description Comments Sex Unknown Tobacco Use Start: Unknown End: Former Cigarette Smoker Unknown Smoking Status Reviewed: 01/05/19 Former Cigarette Smoker ETOH Use Rarely consumes alcohol Tobacco Use Start: Unknown End: Patient is a former quit 11/2014, Unknown smoker smoked for 50yrs 1PPD Recreational Drug Use Denies Drug Use Exercise Type/Frequency Does not exercise Allergies, Adverse Reactions, Alerts Active Allergies Reaction Severity Comments Date Penicillin 03/27/2015 Levaquin 03/27/2015 Zithromax 03/27/2015 Atorvastatin 12/24/2016 Medications Active Medications SIG Qnty Indications Ordering Date Provider Jocelynn Prieto one puff at hs Midura, Sammy, 100-25mcg/Inh MD Aerosol Cartia XT one cap daily Midura, Sammy, 240mg Caps ER 24HR MD Clopidogrel Bisulfate one tab daily Midura, Sammy, 75mg MD Tablets Glipizide ER one tab twice a Midura, Sammy, 10mg Tablets ER 24HR day Hydrochlorothiazide one tab once Midura, Sammy, 25mg Tablets daily Lisinopril one tab daily Midura, Sammy, 10mg Tablets Simvastatin one tab daily Midura, Sammy, 40mg Tablets Bupropion HCL ER (SR) 3 tabs daily Midura, Sammy, 150mg MD Tablets ER 12HR Pantoprazole Sodium one tab daily Midura, Sammy, 40mg Tablets MD DR Merino Ellipta inhale one puff Unknown 62.5mcg/Inh by mouth every Aerosol day in the am Ventolin HFA 2 puffs by mouth Unknown 108(90Base) mcg/Act four times a day Aerosol as needed Albuterol Sulfate 1 vial via Unknown (2.5mg/3ML) nebulizer 4 0.083% Nebulizer times daily as needed Cannon 3 1 tab by mouth Unknown 1000mg Capsules twice daily Oxygen please use o2 at Unknown Misc 2l/min at night and prn History Medications Flonase Allergy 1 puff nasal 36.400ml J43.8 Rancho Escalera MD 01/05/2019 - Relief twice a day 02/04/2019 50mcg/Act Suspension Medications Administered in Office Medication SIG Qnty Indications Ordering Provider Date Triamcinolone (Kenalog) Tino Mcgee MD 04/16/2015 Injection Immunizations Description No Information Available Vital Signs Date Vital Result Comment 02/16/2019 10:23am Height 65 inches 5'5" Weight 166.00 lb Heart Rate 63 /min BP Systolic Sitting 122 mmHg BP Diastolic Sitting 70 mmHg O2 % BldC Oximetry 96 % BMI (Body Mass Index) 27.6 kg/m2 01/05/2019 12:56pm Height 65 inches 5'5" Weight 162.00 lb Heart Rate 77 /min BP Systolic Sitting 138 mmHg BP Diastolic Sitting 60 mmHg O2 % BldC Oximetry 94 % BMI (Body Mass Index) 27.0 kg/m2 Results Description No Information Available Procedures Date Code Description Status 01/12/2019 08891 Sleep Study Unattended,HRT Rate,Oxygen Sat,Resp Completed Effort/Airflow Medical Devices Description No Information Available Encounters Type Date Location Provider Dx Diagnosis Office Visit 01/05/2019 Pulmonology And Rancho Escalera MD J43.8 Other emphysema 1:40p [facility] G47.30 Sleep apnea, unspecified Assessments Date Code Description Provider 02/16/2019 G47.30 Sleep apnea, unspecified Rancho Escalera MD 02/16/2019 J44.9 Chronic obstructive pulmonary disease, Rancho Escalera MD unspecified 01/12/2019 G47.33 Obstructive sleep apnea (adult) (pediatric) Eunice Null MD 01/05/2019 J43.8 Other emphysema Rancho Escalera MD 01/05/2019 G47.30 Sleep apnea, unspecified Rancho Escalera MD Plan of Treatment 02/16/2019 - Rancho Escalera MDG47.30 Sleep apnea, unspecifiedComments:I have ordered CPAP auto with settings of 5-15. I also want the patient do an overnight oximetry off oxygen if the patient has demonstrated compliance with CPAP device. I have also told the patient to exercise care when driving and operating machinery.J44.9 Chronic obstructive pulmonary disease, unspecifiedComments:Patient should continue her current medications Breo, Incruse and Albuterol prn. The patient is to have pulmonary function test as well as a low-dose CT. She reports that she will have these done in March 2019. I also have instructed her to use the Angelika pot for her sinus disease.Follow up:Follow-up in April 2019. Functional Status Description No Information Available Mental Status Description No Information Available Referrals Description No Information Available
--- OUTSIDE RECORDS SUMMARY | 2019-03-15 11:10 | XMS REPORT | Summary of Care ---
:1945 Author Organization [facility] Address [address] [place] [address] Care Team Providers Name Role Phone Sammy Gastelum MD Primary Care Provider Reason for Visit Reason Comments New Patient Encounter Details Date Type Department Care Team Description 02/17/2019 Office Visit [facility] Padmini Bourne, Asymptomatic bilateral Associates MD TASH carotid artery Department of Surgery, [address] [place] [address] stenosis (Primary Dx) Division of Vascular Room [address] [place], [place] [facility] [phone] [phone] [place] [address] (Fax) [phone] Allergies Active Allergy Reactions Severity Noted Date Comments Atorvastatin 08/26/2018 Levofloxacin 07/19/2014 Penicillins 07/19/2014 Azithromycin 07/19/2014 documented as of this encounter (statuses as of 02/17/2019) Medications Medication Sig Dispensed Refills Start End Status Date Date glipiZIDE (GLUCOTROL) 5 Take 5 mg by 0 Active MG tablet mouth Two times daily before meals. lisinopril Take 10 mg by 0 Active (PRINIVIL,ZESTRIL) 10 mouth daily. MG tablet diltiazem (DILTIAZEM Take 240 mg by 0 Active CD) 240 MG 24 hr mouth daily. capsule clopidogrel (PLAVIX) 75 Take 75 mg by 0 Active MG tablet mouth daily pantoprazole (PROTONIX) Take 40 mg by 0 Active 40 MG tablet mouth daily buPROPion (WELLBUTRIN Take 150 mg by 0 Active SR) 150 MG 12 hr tablet mouth Two Times Daily Fluticasone Inhale 1 puff 0 Active Furoate-Vilanterol into the lungs (BREO ELLIPTA) 100-25 daily MCG/INH AEPB Umeclidinium Delta Inhale into 0 Active (INCRUSE ELLIPTA) 62.5 the lungs MCG/INH AEPB Albuterol Sulfate Inhale into 0 Active (VENTOLIN HFA IN) the lungs Stanton-3 Fatty Acids Take by mouth 0 Active (FISH OIL PO) hydrochlorothiazide Take 25 mg by 0 Active (HYDRODIURIL) 25 MG mouth daily tablet Rosuvastatin Calcium 10 Take 20 mg by 0 Active MG Oral Tablet mouth daily (CRESTOR) Pioglitazone HCl 30 MG Take 15 mg by 0 Active Oral Tablet (ACTOS) mouth daily Portable Compressor by Does not 0 Active Nebulizer apply route Ondansetron HCl 4 MG Take 4 mg by 0 Active Oral Tablet (ZOFRAN) mouth every 8 (eight) hours as needed for Nausea Probiotic 250 MG Oral Take 250 mg by 0 Active Capsule mouth Oxygen IN GAS Use as 0 Active directed. Nebulizer Use as 0 Active directed. Glucose Blood In Vitro 1 each by 0 Active Strip Other route as needed for OtherUse as instructed triamterene-hydrochloro Take 1 capsule 0 Discontinued thiazide (DYAZIDE) by mouth every 019 (Formulary 37.5-25 MG per capsule morning. change) simvastatin (ZOCOR) 40 Take 40 mg by 0 Discontinued MG tablet mouth nightly 019 (Formulary change) documented as of this encounter (statuses as of 02/17/2019) Active Problems Problem Noted Date Adrenal nodule 08/28/2018 Intermittent claudication 09/29/2013 Kidney lesion documented as of this encounter (statuses as of 02/17/2019) Social History Tobacco Use Types Packs/Day Years Used Date Former Smoker 1 50 Quit: 11/30/2015 Smokeless Tobacco: Never Used Alcohol Use Drinks/Week oz/Week Comments Yes holidays Sex Assigned at Date Recorded Not on file Job Start Date Occupation Industry Not on file Not on file Not on file Travel History Travel Start Travel End No recent travel history available. documented as of this encounter Last Filed Vital Signs Vital Sign Reading Time Taken Comments Blood Pressure 149/75 02/17/2019 12:23 PM EST Pulse 58 02/17/2019 12:23 PM EST Temperature 36.4 02/17/2019 12:23 PM EST C (97.6 F) Respiratory Rate 20 02/17/2019 12:23 PM EST Oxygen Saturation 98% 02/17/2019 12:23 PM EST Inhaled Oxygen Concentration - - Weight 75.3 kg (166 lb) 02/17/2019 12:23 PM EST Height 165.1 cm (5' 5") 02/17/2019 12:23 PM EST Body Mass Index 27.62 02/17/2019 12:23 PM EST documented in this encounter Progress Notes Padmini Bourne MD - 02/17/2019 12:30 PM EST Subjective: Patient ID: Ashley Barger is a 74 y.o. female with ast medical history of Allergy, unspecified not elsewhere classified, Anxiety, Arteriosclerosis, Asthma , Carotid stenosis, Colon polyps, COPD (chronic obstructive pulmonary disease), Diabetes mellitus, GERD (gastroesophageal reflux disease), Hyperlipidemia, Hypertension, Kidney lesion, and PVD (peripheral vascular disease), former smoker quittingOct 2015. She had stenting done by Dr. Crain (aortic 10 mm x 17 mm; left iliac 7 mm x 37 mm; right iliac 7 x 57 mm and another right external iliac stent 7 x 120 mm eV3 ) in April 2015 at [facility]. Her walking improved after that. She is here for follow up regarding her PAD and carotid stenosis. She has some back problems and uses a walker or cane to walk. She had been going to a masseus and chiropractor. She is not getting the same hip and leg pain that she had before. No neurologic changes, no amaurosis although she thinks she had one event many years ago (> 5 years). Nothing since. Chief Complaint: DIONNE Ramirez has a past medical history of Allergy, unspecified not elsewhere classified, Anxiety, Arteriosclerosis, Asthma, Carotid stenosis, Colon polyps, COPD (chronic obstructive pulmonary disease), Diabetes mellitus, FH: diabetes mellitus, FH: HTN (hypertension), FH: hyperlipidemia, GERD (gastroesophageal reflux disease), Hyperlipidemia, Hypertension, Kidney lesion, and PVD ( peripheral vascular disease). Ashley has Intermittent claudication; Kidney lesion; and Adrenal nodule on their problem list. Ashley has a past surgical history that includes Colonoscopy; Tubal ligation; Cholecystectomy; andstents both iliac arteries and Aorta. Her family history includes Diabetes in an other family member. Ashley reports that she quit smoking about 3 years ago. She has a 50.00 pack- year smoking history.She has never used smokeless tobacco. She reports current alcohol use. She reports that she does notuse drugs. Ashley has a current medication list which includes the following prescription( s): albuterol sulfate, bupropion, clopidogrel, diltiazem, fluticasone furoate- vilanterol, glipizide, glucose blood, hydrochlorothiazide, lisinopril, nebulizer , omega-3 fatty acids, ondansetron, oxygen, pantoprazole, pioglitazone, portable compressor nebulizer, probiotic, rosuvastatin, and umeclidinium bromide. Current Outpatient Medications on File Prior to Visit Medication Sig Dispense Refill Albuterol Sulfate (VENTOLIN HFA IN) Inhale into the lungs buPROPion (WELLBUTRIN SR) 150 MG 12 hr tablet Take 150 mg by mouth Two Times Daily clopidogrel (PLAVIX) 75 MG tablet Take 75 mg by mouth daily diltiazem (DILTIAZEM CD) 240 MG 24 hr capsule Take 240 mg by mouth daily. Fluticasone Furoate-Vilanterol (BREO ELLIPTA) 100-25 MCG/INH AEPB Inhale 1 puff into the lungs daily glipiZIDE (GLUCOTROL) 5 MG tablet Take 5 mg by mouth Two times daily before meals. Glucose Blood In Vitro Strip 1 each by Other route as needed for OtherUse as instructed hydrochlorothiazide (HYDRODIURIL) 25 MG tablet Take 25 mg by mouth daily lisinopril (PRINIVIL,ZESTRIL) 10 MG tablet Take 10 mg by mouth daily. Nebulizer Use as directed. Stanton-3 Fatty Acids (FISH OIL PO) Take by mouth Ondansetron HCl 4 MG Oral Tablet (ZOFRAN) Take 4 mg by mouth every 8 ( eight) hours as neededfor Nausea Oxygen IN GAS Use as directed. pantoprazole (PROTONIX) 40 MG tablet Take 40 mg by mouth daily Pioglitazone HCl 30 MG Oral Tablet (ACTOS) Take 15 mg by mouth daily Portable Compressor Nebulizer by Does not apply route Probiotic 250 MG Oral Capsule Take 250 mg by mouth Rosuvastatin Calcium 10 MG Oral Tablet (CRESTOR) Take 20 mg by mouth daily Umeclidinium Delta (INCRUSE ELLIPTA) 62.5 MCG/INH AEPB Inhale into the lungs [DISCONTINUED] simvastatin (ZOCOR) 40 MG tablet Take 40 mg by mouth nightly [DISCONTINUED] triamterene-hydrochlorothiazide (DYAZIDE) 37.5-25 MG per capsule Take 1 capsule by mouth every morning. No current facility-administered medications on file prior to visit. Ashley is allergic to atorvastatin; levaquin [levofloxacin]; penicillins; and zithromax [azithromycin]. Review of Systems All other systems reviewed and are negative. Objective: Physical Exam Constitutional: She is oriented to person, place, and time. She appears well- developed and well-nourished. HENT: Head: Normocephalic and atraumatic. Eyes: Pupils are equal, round, and reactive to light. Conjunctivae are normal. Neck: Normal range of motion. Neck supple. Bilateral bruits radiating from her heart Cardiovascular: Normal rate and regular rhythm. Femoral difficult to feel due to body habitus. Right DP, PT biphasic Left DP, PT monophasic Pulmonary/Chest: Effort normal. Abdominal: Soft. Musculoskeletal: Normal range of motion. Neurological: She is alert and oriented to person, place, and time. Skin: Skin is warm and dry. Psychiatric: She has a normal mood and affect. Her behavior is normal. Judgment and thought content normal. Nursing note and vitals reviewed. Lab Review: 01/27/19 Carotid Duplex US [facility]: < 50% stenosis Right ICA; 50-69% stenosis Left ICA. No change since 2018. Vertebrals demonstrate antegrade flow bilaterally 09-13-18 CT Scan [facility]: Vasculature: dense calcified atherosclerosis of entire abd aorta into VIA. 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 Focal saccular aneurysmal dilatation distal abd aorta 1.9 cm. Below this,2 stents extend into bilateral JOSE DAVID. Left JOSE DAVID narrowed by 50% after stent. SMA narrowed 50%. Assessment: 1. Asymptomatic bilateral carotid artery stenosis Plan: She has asymptomatic mild to Moderate Carotid Disease- I would check another duplex in 1 year She has asymptomatic PAD. I will schedule another BERNADETTE, TBI at the same time and see her back after that. Continue cardiovascular risk factor modification. documented in this encounter Plan of Treatment Date Type Specialty Care Team Description 05/15/2019 Appointment Radiology 05/15/2019 Office Visit Urology Jt Mccarty MD [address], [place] [id number] 03/15/2020 Office Visit Vascular Surgery Padmini Bourne MD [address] [facility] [address] [place] [address] [phone] Health Maintenance Due Date Last Done Comments MMR Vaccines (1 of 1 - Standard 01/18/1946 series) Varicella Vaccines (1 of 2 - 01/18/1946 2-dose childhood series) DTaP,Tdap,and Td Vaccines (1 - 1950 Tdap) Zoster Vaccines (1 of 2) 1993 Osteoporosis Screening 2 yr 01/18/2008 Pneumococcal Vaccine: 65+ Years (1 01/18/2008 of 2 - PCV13) Influenza Vaccine 11/29/2018 HIB Vaccines Aged Out No longer eligible based on patient's age to complete this topic Hepatitis A Vaccines Aged Out No longer eligible based on patient's age to complete this topic Hepatitis B Vaccines Aged Out No longer eligible based on patient's age to complete this topic IPV Vaccines Aged Out No longer eligible based on patient's age to complete this topic Pneumococcal Vaccine: Pediatrics Aged Out No longer eligible based on (0 to 5 Years) and At-Risk patient's age to complete this Patients (6 to 64 Years) topic documented as of this encounter Results Not on filedocumented in this encounter Visit Diagnoses Diagnosis Asymptomatic bilateral carotid artery stenosis - Primary Occlusion and stenosis of multiple and bilateral precerebral arteries without mention of cerebral infarction documented in this encounter
--- NOTE | 2019-03-15 11:39 | ED ---
Dizziness - HPI Summary HPI Summary: 74 y/o female presented to [facility] after an episode of dizziness [employer]. Pt came [place] [facility] [place] CT and respiratory testing and soon began experiencing severe pain and dizziness that worsened over time. She has a dull HAWLEY in the front of her head and notes she feels "swimmy" when moving. Pt denies N/V, vision changes , CP or chest pressure. In the room her systolic BP was elevated (>200) and was using O2 through nasal cannula, which she stated helped her symptoms. Pt does not normally use O2 but states that when she is upset or when she sleeps she does. She has a recent Dx of severe sleep apnea as well as a Hx of diabetes, HTN for which she takes medication, HLD, 4 stents in her legs, and chronic abd pain. She states no cardiac Hx. Pt does not smoke but did for many years. She takes her medications in the morning and notes that she suspects this episode is an episode of vertigo. - History Of Current Complaint Chief Complaint: EDDizziness Stated Complaint: POSS DIABETIC ISSUE Time Seen by Provider: 03/15/19 11:13 Hx Obtained From: Patient Onset/Duration: Still Present Character: Dizzy - "swimmy" Aggravating Factor(s): Other - ambulation Alleviating Factor(s): Other - O2 Associated Signs And Symptoms: Positive: Other: - positive - HAWLEY, elevated BP; negative - chest pressure, vision changes. Negative: Nausea, Vomiting, Chest Pain - Allergies/Home Medications Allergies/Adverse Reactions: Allergies Allergy/AdvReac Type Severity Reaction Status Date / Time atorvastatin Allergy Diarrhea Verified 03/15/19 11:00 azithromycin Allergy Hives Verified 03/15/19 11:00 levofloxacin Allergy Hives Verified 03/15/19 11:00 Penicillins Allergy Hives Verified 03/15/19 11:00 Home Medications: Home Medications Flaxseed Oil 1,000 mg PO DAILY 03/15/19 [History Confirmed 03/15/19] Garlic Extract [Garlipure] 1,000 mg PO DAILY 03/15/19 [History Confirmed ] Magnesium Oxide TAB* [MagOx 400 TAB*] 250 mg PO DAILY 03/15/19 [History Confirmed 03/15/19] Ondansetron ODT TAB* [Zofran 4 MG Odt TAB*] 4 mg PO Q6H PRN 03/15/19 [History Confirmed 03/15/19] Pioglitazone TAB* [Actos TAB*] 15 mg PO DAILY 03/15/19 [History Confirmed ] Rosuvastatin (NF) [Crestor (NF)] 20 mg PO QPM 03/15/19 [History Confirmed ] PMH/Surg Hx/FS Hx/Imm Hx Endocrine/Hematology History: Reports: Hx Blood Disorders, Hx Diabetes, Hx Anemia Denies: Hx Thyroid Disease Cardiovascular History: Reports: Hx Angina, Hx Coronary Artery Disease, Hx Hypercholesterolemia, Hx Hypertension - ON MEDS, Hx Myocardial Infarction, Other Cardiovascular Problems/Disorders - 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 Denies: Hx Pacemaker/ICD Respiratory History: Reports: Hx Asthma, Hx Chronic Bronchitis, Hx Chronic Obstructive Pulmonary Disease (COPD) - on home O2 - 2 L at night, Hx Pneumonia GI History: Reports: Hx Diverticulosis, Hx Ulcer History: Denies: Hx Dialysis, Hx Renal Disease Musculoskeletal History: Reports: Hx Arthritis, Hx Back Problems - chronic pain , Other Musculoskeletal History - shoulder pain (rotator cuff) Sensory History: Reports: Hx Contacts or Glasses Denies: Hx Hearing Aid Opthamlomology History: Reports: Hx Contacts or Glasses Neurological History: Reports: Hx Migraine, Other Neuro Impairments/Disorders - PAIN CLINIC PATIENT, spinal stenosis, sciatica Psychiatric History: Reports: Hx Anxiety, Hx Depression Denies: Hx Panic Disorder - Surgical History Surgery Procedure, Year, and Place: TUBAL LIGATION, FATTY MASS FROM L THIGH, AORTIC/ILIAC STENTS IN LEGS(IMPLANT INFO SCANNED INTO [place] FOR THESE STENTS- NORMAL MODE)-[employer]; CHOLECYSTECTOMY - Immunization History Date of Tetanus Vaccine: unk Date of Influenza Vaccine: 2015 Infectious Disease History: No Infectious Disease History: Denies: Hx Hepatitis, Hx Human Immunodeficiency Virus (HIV), History Other Infectious Disease, Traveled Outside the [place] in Last 30 Days - Family History Known Family History: Positive: Diabetes Negative: Cardiac Disease, Hypertension - Social History Alcohol Use: Rare Hx Substance Use: No Substance Use Type: Reports: None Hx Tobacco Use: No Smoking Status (MU): Former Smoker Type: Cigarettes Amount Used/How Often: 1 ppd Length of Time of Smoking/Using Tobacco: 50 yrs Have You Smoked in the Last Year: No Review of Systems Eyes: Negative Positive: Other - negative chest pressure. Negative: Chest Pain Negative: Vomiting, Nausea Neurological: Other - dizziness Positive: Headache All Other Systems Reviewed And Are Negative: Yes Physical Exam - Summary Physical Exam Summary: Constitutional: Well-developed, Well-nourished, Alert. (-) Distressed Skin: Warm, Dry HENT: Normocephalic; Atraumatic Eyes: Conjunctiva normal Neck: Musculoskeletal ROM normal neck. (-) JVD, (-) Stridor, (-) Tracheal deviation Cardio: Rhythm regular, rate normal, Heart sounds normal; Intact distal pulses; The pedal pulses are 2+ and symmetric. Radial pulses are 2+ and symmetric. (-) Murmur Pulmonary/Chest wall: Effort normal. (-) Respiratory distress, (-) Wheezes, (-) Rales Abd: Soft, (-) tenderness, (-) Distension, (-) Guarding, (-) Rebound Musculoskeletal: (-) Edema Lymph: (-) Cervical adenopathy Neuro: Alert, Oriented x3 Psych: Mood and affect Normal Triage Information Reviewed: Yes Vital Signs On Initial Exam: Initial Vitals Temp Pulse Resp BP Pulse Ox 98.1 F 60 18 194/87 99 03/15/19 10:57 03/15/19 10:57 03/15/19 10:57 03/15/19 10:57 03/15/19 10:57 Vital Signs Reviewed: Yes Procedures - Sedation Patient Received Moderate/Deep Sedation with Procedure: No Diagnostics - Vital Signs Vital Signs Temp Pulse Resp BP Pulse Ox 03/15/19 10:57 98.1 F 60 18 194/87 99 - Laboratory Result Diagrams: 03/15/19 11:44 03/15/19 11:44 Lab Statement: Any lab studies that have been ordered have been reviewed, and results considered in the medical decision making process. - EKG 1200 Cardiac Rate: Bradycardia - 56bpm EKG Rhythm: Sinus Bradycardia Summary of EKG Findings: Sinus bradycardia at 56bpm. Otherwise normal EKG. Dr. Ziegler has reviewed and interpreted this EKG Dizzy Course/Dx - Course Course Of Treatment: 74 y/o female presented to [facility] after an episode of dizziness [employer]. Pt came [place] [facility] [place] a lung CT and respiratory testing and soon began experiencing severe pain and dizziness that worsened over time. She has a dull HAWLEY in the front of her head and notes she feels "swimmy" when moving. Pt denies N/V, vision changes, CP or chest pressure. In the room her systolic BP was elevated (>200) and was using O2 through nasal cannula, which she stated helped her symptoms. Exam was normal. Bloodwork showed Hgb L, BUN H, BUN/ creatinine ratio H, Glc H, and AST L. EKG showed sinus bradycardia at 56bpm. Pt was given 20mg IV Apresoline. Pt was diagnosed with systemic HTN and dizziness, and discharged to home. - Diagnoses Provider Diagnoses: Systemic hypertension, Dizziness Discharge ED - Sign-Out/Discharge Documenting (check all that apply): Patient Departure - dc - Discharge Plan Condition: Stable Disposition: HOME Patient Education Materials: Hypertension (ED), Dizziness (ED) Referrals: Sammy Gastelum MD [Primary Care Provider] - Additional Instructions: Follow up with your primary care physician in 1-2 days. If you experience new or worsening symptoms please return to the ER. - Attestation Statements Document Initiated by Zariibe: Yes Documenting Scribe: Bal Bundy Provider For Whom Tierra is Documenting (Include Credential): Peter Ziegler DO Scribe Attestation: Bal Tolbert scribed for Peter Ziegler DO on 03/15/19 at 1445. Status of Scribe Document: Ready
[2019-03-15] MEDS ORDERED: NS 0.9% 1000 ML** 1,000 ML IV ONE (11:49)
[2019-03-15] MEDS ORDERED: hydrALAZINE IV* 20 MG/ML VIAL IV SLOW PU ONE ×2 (11:50→13:33)
[2019-03-15 12:01] LABS: ABS Basophils 0.1 10^3/ul (0-0.2); ABS Eosinophils 0.2 10^3/ul (0-0.6); ABS Lymphocytes 1.6 10^3/ul (1.0-4.8); ABS Monocytes 0.5 10^3/ul (0-0.8); ABS Neutrophils 3.7 10^3/ul (1.5-7.7); Hematocrit 35 % (35-47); Hemoglobin 11.7 g/dL (12.0-16.0); Lymphocyte % 26.3 %; Mean Corpuscular HGB Conc 33 g/dL (31-36); Mean Corpuscular Hemoglobin 29 pg (27-31); Mean Corpuscular Volume 87 fL (80-97); Mean Platelet Volume 9.5 fL (7.4-10.4); Platelet Count 200 10^3/uL (150-450); Red Blood Count 4.08 10^6 /uL (3.70-4.87); Red Cell Distribution Width 15 % (10-15)
[2019-03-15 12:22] LABS: Albumin 4.1 g/dL (3.2-5.2); Albumin/Globulin Ratio 1.3 (1-3); BUN/Creatinine Ratio 27.7 (8-20); Calcium 9.7 mg/dL (8.6-10.3); EGFR African American 70.1 (>60); EGFR Non-African American 57.9 (>60); Globulin 3.1 g/dL (2-4); Potassium 4.7 mmol/L (3.5-5.0); Total Bilirubin 0.3 mg/dL (0.2-1.0); Total Protein 7.2 g/dL (6.4-8.9)
[2019-03-15 12:23] LABS: Troponin I 0.01 ng/mL (<0.03)
[2019-03-15 14:56] VITALS: BP 139/71
== END 2019-03-15 14:58 | disposition home or self-care (01) ==
LOC: ED 10:56
DX: I10 Essential (primary) hypertension (principal); R42 Dizziness and giddiness; R51 Headache; R00.1 Bradycardia, unspecified; E11.9 Type 2 diabetes mellitus without complications; Z79.84 Long term (current) use of oral hypoglycemic drugs; I25.10 Atherosclerotic heart disease of native coronary artery without angina pectoris; I25.2 Old myocardial infarction; J44.9 Chronic obstructive pulmonary disease, unspecified; Z99.81 Dependence on supplemental oxygen; Z95.5 Presence of coronary angioplasty implant and graft; Z88.1 Allergy status to other antibiotic agents; Z88.0 Allergy status to penicillin; Z88.8 Allergy status to other drugs, medicaments and biological substances; Z87.891 Personal history of nicotine dependence
CPT/HCPCS: 36415; 80053; 84484; 85025; 93005; 96361; 96374; 96376; 99284; J0360

== ENCOUNTER 2019-04-27 13:51 | Emergency (ER) | payer MEDICARE ==
[2019-04-27 14:24] LABS: ABS Basophils 0.1 10^3/ul (0-0.2); ABS Eosinophils 0.2 10^3/ul (0-0.6); ABS Lymphocytes 1.6 10^3/ul (1.0-4.8); ABS Monocytes 0.5 10^3/ul (0-0.8); ABS Neutrophils 5.1 10^3/ul (1.5-7.7); Hematocrit 34 % (35-47); Hemoglobin 11.5 g/dL (12.0-16.0); Lymphocyte % 21.5 %; Mean Corpuscular HGB Conc 33 g/dL (31-36); Mean Corpuscular Hemoglobin 29 pg (27-31); Mean Corpuscular Volume 86 fL (80-97); Mean Platelet Volume 9.4 fL (7.4-10.4); Platelet Count 179 10^3/uL (150-450); Red Blood Count 4.01 10^6 /uL (3.70-4.87); Red Cell Distribution Width 14 % (10-15); White Blood Count 7.5 10^3/uL (3.5-10.8)
--- NOTE | 2019-04-27 14:24 | ED ---
HPI Cardiac - HPI Summary HPI Summary: 74 year old F with hx hypertension and hx COPD referred to [facility] by her crab fisherman complains of chest tightness and mild frontal headache for a couple days. Patient had blood pressure taken at crab fisherman's office today which was 200s systolic and 80s diastolic. She told her crab fisherman that she has been having chest tightness and mild frontal headache for couple days and was referred to the ED. She spoke with nurse practitioner at her primary care provider's office and was referred to the ED. Patient denies chest pain and shortness of breath. The patient rates the pain 2/10 in severity. Symptoms aggravated by nothing. Symptoms alleviated by nothing. Patient states her has been sick recently. Medications reviewed. Patient states she had recent medication change 1 week ago from 10 mg to 20 mg lisinopril which has improved her hypertension. Patient admits to using CBD recently. Allergies noted. Home Medications Medication Instructions Recorded Confirmed Type buPROPion SR TAB* [Wellbutrin SR 150 mg PO DAILY 12/27/14 04/27/19 History TAB*] Albuterol 2.5MG/3ML (0.083%)* 1 neb.deanna INH .4-6X/DAY PRN 03/12/15 04/27/19 History [Ventolin 2.5 MG/3 ML NEB.DEANNA*] Albuterol HFA INHALER* [Ventolin 2 puff INH Q4HR PRN 05/28/15 04/27/19 History HFA Inhaler*] Clopidogrel TAB* [Plavix TAB*] 75 mg PO DAILY 08/01/15 04/27/19 History Pantoprazole TAB * [Protonix TAB*] 40 mg PO DAILY #30 tab 02/05/16 04/27/19 Rx Fluticasone/Vilanterol MDI(NF) 1 puff INH DAILY 07/28/16 04/27/19 History [Breo Ellipta MDI 100/25(NF)] Hydrochlorothiazide TAB* 25 mg PO DAILY 07/28/16 04/27/19 History [Hydrodiuril TAB*] Lisinopril [Zestril 10 MG-] 20 mg PO DAILY 07/28/16 04/27/19 History Diltiazem CD CAP* [Cardizem CD 360 mg PO DAILY 10/23/16 04/27/19 History CAP*] glipiZIDE [Glipizide ER] 10 mg PO BID 12/11/16 04/27/19 History Umeclidinium 62.5 MDI(NF) [Incruse 1 puff INH DAILY 06/13/18 04/27/19 History ELLIPTA MDI (NF)] Ondansetron ODT TAB* [Zofran 4 MG 4 mg PO Q6H PRN 03/15/19 04/27/19 History Odt TAB*] Rosuvastatin (NF) [Crestor (NF)] 20 mg PO DAILY 03/15/19 04/27/19 History - History of Current Complaint Chief Complaint: EDHypertension Stated Complaint: HIGH BLOOD PRESSURE PER PT Time Seen by Provider: 04/27/19 14:14 Hx Obtained From: Patient Onset/Duration: Started Days Ago, Still Present Timing: Constant Current Severity: Mild Pain Intensity: 2 Pain Scale Used: 0-10 Numeric Character: Tightness Aggravating Factor(s): Nothing Alleviating Factor(s): Nothing Associated Signs and Symptoms: Negative: Chest Pain, Shortness of Breath - Additional Pertinent History Primary Care Physician: [id number] - Allergy/Home Medications Allergies/Adverse Reactions: Allergies Allergy/AdvReac Type Severity Reaction Status Date / Time atorvastatin Allergy Diarrhea Verified 04/27/19 13:53 azithromycin Allergy Hives Verified 04/27/19 13:53 levofloxacin Allergy Hives Verified 04/27/19 13:53 Penicillins Allergy Hives Verified 04/27/19 13:53 Home Medications: Home Medications buPROPion SR TAB* [Wellbutrin SR TAB*] 150 mg PO DAILY 12/27/14 [History Confirmed 04/27/19] Albuterol 2.5MG/3ML (0.083%)* [Ventolin 2.5 MG/3 ML NEB.DEANNA*] 1 neb.deanna INH .4- 6X/DAY PRN 03/12/15 [History Confirmed 04/27/19] Albuterol HFA INHALER* [Ventolin HFA Inhaler*] 2 puff INH Q4HR PRN 05/28/15 [ History Confirmed 04/27/19] Clopidogrel TAB* [Plavix TAB*] 75 mg PO DAILY 08/01/15 [History Confirmed ] Pantoprazole TAB * [Protonix TAB*] 40 mg PO DAILY #30 tab 02/05/16 [Rx Confirmed 04/27/19] Fluticasone/Vilanterol MDI(NF) [Breo Ellipta MDI 100/25(NF)] 1 puff INH DAILY [History Confirmed 04/27/19] Hydrochlorothiazide TAB* [Hydrodiuril TAB*] 25 mg PO DAILY 07/28/16 [History Confirmed 04/27/19] Lisinopril [Zestril 10 MG-] 20 mg PO DAILY 07/28/16 [History Confirmed 04/27/19] Diltiazem CD CAP* [Cardizem CD CAP*] 360 mg PO DAILY 10/23/16 [History Confirmed 04/27/19] glipiZIDE [Glipizide ER] 10 mg PO BID 12/11/16 [History Confirmed 04/27/19] Umeclidinium 62.5 MDI(NF) [Incruse ELLIPTA MDI (NF)] 1 puff INH DAILY 06/13/18 [ History Confirmed 04/27/19] Ondansetron ODT TAB* [Zofran 4 MG Odt TAB*] 4 mg PO Q6H PRN 03/15/19 [History Confirmed 04/27/19] Rosuvastatin (NF) [Crestor (NF)] 20 mg PO DAILY 03/15/19 [History Confirmed ] PMH/Surg Hx/FS Hx/Imm Hx Endocrine/Hematology History: Reports: Hx Blood Disorders, Hx Diabetes, Hx Anemia Denies: Hx Thyroid Disease Cardiovascular History: Reports: Hx Angina, Hx Coronary Artery Disease, Hx Hypercholesterolemia, Hx Hypertension - ON MEDS, Hx Myocardial Infarction, Other Cardiovascular Problems/Disorders - 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 Denies: Hx Pacemaker/ICD Respiratory History: Reports: Hx Asthma, Hx Chronic Bronchitis, Hx Chronic Obstructive Pulmonary Disease (COPD) - on home O2 - 2 L at night, Hx Pneumonia GI History: Reports: Hx Diverticulosis, Hx Ulcer History: Denies: Hx Dialysis, Hx Renal Disease Musculoskeletal History: Reports: Hx Arthritis, Hx Back Problems - chronic pain , Other Musculoskeletal History - shoulder pain (rotator cuff) Sensory History: Reports: Hx Contacts or Glasses Denies: Hx Hearing Aid Opthamlomology History: Reports: Hx Contacts or Glasses Neurological History: Reports: Hx Migraine, Other Neuro Impairments/Disorders - PAIN CLINIC PATIENT, spinal stenosis, sciatica Psychiatric History: Reports: Hx Anxiety, Hx Depression Denies: Hx Panic Disorder - Surgical History Surgery Procedure, Year, and Place: TUBAL LIGATION, FATTY MASS FROM L THIGH, AORTIC/ILIAC STENTS IN LEGS(IMPLANT INFO SCANNED INTO [id number] FOR THESE STENTS- NORMAL MODE)-[employer]; CHOLECYSTECTOMY - Immunization History Date of Tetanus Vaccine: unk Date of Influenza Vaccine: 2015 Infectious Disease History: No Infectious Disease History: Denies: Hx Hepatitis, Hx Human Immunodeficiency Virus (HIV), History Other Infectious Disease, Traveled Outside the [place] in Last 30 Days - Family History Known Family History: Positive: Diabetes Negative: Cardiac Disease, Hypertension - Social History Alcohol Use: Rare Hx Substance Use: Yes Substance Use Comment - Amount & Last Used: CBD Hx Tobacco Use: Yes Smoking Status (MU): Former Smoker Type: Cigarettes Amount Used/How Often: 1 ppd Length of Time of Smoking/Using Tobacco: 50 yrs Have You Smoked in the Last Year: No Review of Systems Positive: Other - chest tightness . Negative: Chest Pain Negative: Shortness Of Breath Positive: Headache All Other Systems Reviewed And Are Negative: Yes Physical Exam - Summary Physical Exam Summary: Appearance: The patient is well-nourished in no acute distress and in no acute pain. Skin: The skin is warm and dry, and skin color reflects adequate perfusion. HEENT: The head is normocephalic and atraumatic. The pupils are equal and reactive. The conjunctivae are clear and without drainage. Nares are patent and without drainage. Mouth reveals moist mucous membranes, and the throat is without erythema and exudate. The external ears are intact. The ear canals are patent and without drainage. The tympanic membranes are intact. Neck: The neck is supple with full range of motion and non-tender. There are no carotid bruits. There is no neck vein distension. Respiratory: Chest is non-tender. Lungs are clear to auscultation and breath sounds are symmetrical and equal. Cardiovascular: Heart is regular rate and rhythm. She has a systolic ejection murmur. There is no rub auscultated. There is no peripheral edema and pulses are symmetrical and equal. Abdomen: The abdomen is soft and non-tender. There are normal bowel sounds heard in all four quadrants and there is no organomegaly palpated. Musculoskeletal: There is no back tenderness noted. Extremities are non-tender with full range of motion. There is good capillary refill. There is no peripheral edema or calf tenderness elicited. Neurological: Patient is alert and oriented to person, place and time. The patient has symmetrical motor strength in all four extremities. Cranial nerves are grossly intact. Deep tendon reflexes are symmetrical and equal in all four extremities. Psychiatric: The patient has an appropriate affect and does not exhibit any anxiety or depression. Triage Information Reviewed: Yes Vital Signs On Initial Exam: Initial Vitals Temp Pulse Resp BP Pulse Ox 97.8 F 65 18 198/67 93 04/27/19 13:53 04/27/19 13:53 04/27/19 13:53 04/27/19 13:53 04/27/19 13:53 Vital Signs Reviewed: Yes Procedures - Sedation Patient Received Moderate/Deep Sedation with Procedure: No Diagnostics - Vital Signs Vital Signs Temp Pulse Resp BP Pulse Ox 04/27/19 13:53 97.8 F 65 18 198/67 93 - Laboratory Result Diagrams: 04/27/19 14:12 04/27/19 14:12 Lab Statement: Any lab studies that have been ordered have been reviewed, and results considered in the medical decision making process. - EKG 1359 Cardiac Rate: NL - 60 BPM EKG Rhythm: Sinus Rhythm ST Segment: Normal Ectopy: None Summary of EKG Findings: ED physician has reviewed and interpreted this EKG Re-Evaluation - Re-Evaluation First Eval Re-Evaluation Time: 17:16 Change: Improved Comment: patient is agreeable to discharge Disposition - Course Course Of Treatment: She has had chest tightness for at least a day and feels that she is getting an infection. She was sitting her crab fisherman and her blood pressure was quite high and so was recommended she come to the emergency department. Her blood pressure was a little bit improved from what it had been crab fisherman office and she was placed on the monitor while EKG, chest x-ray and labs were obtained. Her troponin was negative as well as her EKG and again she has had this symptom for over 24 hours. Her blood pressures remained elevated but not any dangerous area and I recommended follow-up with Dr. Rubi for blood pressure control. - Diagnoses Provider Diagnoses: Hypertension Discharge ED - Sign-Out/Discharge Documenting (check all that apply): Patient Departure - Discharge Plan Condition: Stable Disposition: HOME Patient Education Materials: Hypertension (ED) Referrals: Sammy Gastelum MD [Primary Care Provider] - 2 Days Additional Instructions: Follow up with your primary care provider in 2-3 days. Return to the Emergency Department for new or worsening symptoms. - Billing Disposition and Condition Condition: STABLE Disposition: Home - Attestation Statements Document Initiated by Zariibe: Yes Documenting Scribe: Marizol Prince Provider For Whom Tierra is Documenting (Include Credential): Jose Raul Kuo MD Scribe Attestation: Marizol Tolbert, scribed for Jose Raul Kuo MD on 04/27/19 at 2124. Scribe Documentation Reviewed: Yes Provider Attestation: The documentation as recorded by the Marizol prado accurately reflects the service I personally performed and the decisions made by me, Jose Raul Kuo MD Status of Scribe Document: Viewed
--- OUTSIDE RECORDS SUMMARY | 2019-04-27 14:33 | XMS REPORT | Continuity of Care Document ---
:1945 External Reference #:[id number] Author Name EILEEN Esquivel Address [address] [place] [address] Care Team Providers Name Role Phone Efren Garner ([place] - Direct) Care Team Information Welt Beater - Otolaryngology Americo Waggoner MD - Vascular Surgery Care Team Information Welt Beater [phone] [facility] - [place] [facility] Care Team Information Welt Beater Amilcar Henson MD - Urology Care Team Information Welt Beater [phone] Salomón An MD - Urology Care Team Information Welt Beater Problems Active Problems Provider Date Benign essential hypertension Sammy Gastelum M.D. Onset: 03/19/2005 Hyperlipidemia Sammy Gastelum M.D. Onset: 03/19/2005 Type II diabetes mellitus uncontrolled Sammy Gastelum M.D. Onset: 03/19/2005 Palpitations Sammy Gastelum M.D. Onset: 07/16/2005 Type 2 diabetes mellitus Sammy Gastelum M.D. Onset: 04/22/2006 Anxiety state Sammy Gastelum M.D. Onset: 04/22/2006 Dysthymia Sammy Gastelum M.D. Onset: 04/22/2006 Allergic rhinitis Sammy Gastelum M.D. Onset: 09/02/2006 Cardiovascular symptoms Sammy Gastelum M.D. Onset: 12/13/2008 Chronic obstructive lung disease Samym Gastelum M.D. Onset: 11/13/2010 Dizziness and giddiness Sammy Gastelum M.D. Onset: 11/13/2010 Disorder of shoulder Sammy Gastelum M.D. Onset: 07/23/2011 Insomnia Sammy Gastelum M.D. Onset: 03/03/2012 Acute sinusitis Sammy Gastelum M.D. Onset: 12/01/2012 Acute bronchitis Sammy Gastelum M.D. Onset: 12/01/2012 Pain in limb Sammy Gastelum M.D. Onset: 08/10/2013 Low back pain Sammy Gastelum M.D. Onset: 08/02/2014 Neoplasm of uncertain behavior of skin Sammy Gastelum M.D. Onset: 09/27/2014 Neuralgia Sammy Gastelum M.D. Onset: 09/27/2014 Exacerbation of intermittent asthma Mary Joe M.D. Onset: 12/24/2014 Essential hypertension Sammy Gastelum M.D. Onset: 01/03/2015 Gastroesophageal reflux disease Sammy Gastelum M.D. Onset: 01/09/2019 Peripheral vascular disease Sammy Gastelum M.D. Onset: 07/14/2018 Neoplasm of uncertain behavior of kidney Sammy Gastelum M.D. Onset: 2018 Other hyperlipidemia Sammy Gastelum M.D. Onset: 06/27/2018 Carotid artery occlusion Sammy Gastelum M.D. Onset: 10/14/2017 Aortic valve disorder Sammy Gastelum M.D. Onset: 06/10/2017 Constipation Sammy Gastelum M.D. Onset: 02/08/2017 Diverticulitis of colon Sammy Gastelum M.D. Onset: 11/05/2016 Malaise and fatigue Sammy Gastelum M.D. Onset: 06/04/2016 Constipation - functional Sammy Gastelum M.D. Onset: 04/02/2016 Epigastric pain Sammy Gastelum M.D. Onset: 04/02/2016 Chronic superficial gastritis with bleeding Sammy Gastelum M.D. Onset: 02/12 Anemia due to chronic blood loss Sammy Gastelum M.D. Onset: 02/13/2016 Acute upper respiratory infection, Sammy Gastelum M.D. Onset: 12/26/2015 unspecified Bronchitis Sammy Gastelum M.D. Onset: 12/26/2015 Edema Sammy Gastelum M.D. Onset: 09/12/2015 Generalized atherosclerosis Sammy Gastelum M.D. Onset: 06/06/2015 Shoulder joint pain Sammy Gastelum M.D. Onset: 03/07/2015 Lumbar radiculopathy Sammy Gastelum M.D. Onset: 2015 Hypoxemia Sammy Gastelum M.D. Onset: 2015 Chronic obstructive pulmonary disease with Sammy Gastelum M.D. Onset: 2014 (acute) exacerbation Social History Type Date Description Comments Sex Unknown Tobacco Use Start: Unknown End: Unknown Former Cigarette Smoker ETOH Use Occasional Tobacco Use Start: Unknown End: Unknown Patient is a former smoker Allergies, Adverse Reactions, Alerts Active Allergies Reaction Severity Comments Date Penicillin 05/28/1997 Zithromax Rash 07/30/2005 Levaquin Rash 08/20/2005 Atorvastatin loose bowels/doubled BS 08/12/2015 Medications Active Medications SIG Qnty Indications Ordering Date Provider Diltiazem HCL ER Beads 1 po daily, in 90caps Jody 120mg addition to 240 Nathan, [employer] REPRESENTATIVE 0 Caps ER 24HR mg dose for total 360 mg daily Rosuvastatin Calcium take 1 tablet by 90tabs Sammy Ryan 20mg mouth once daily Midura, M.D. 9 Tablets for cholesterol Pioglitazone HCL 1 by mouth every 90tabs Sammy Ryan 15mg Tablets day in evening Midura, M.D. 9 for diabetes Bupropion Hydrochloride Take One Tablet 90tabs Sammy Ryan ER (SR) By Mouth 2 Times Midura, M.D. 9 150mg Tablets ER 12HR A Day as Directed Lisinopril Take One Tablet 90tabs Sammy Ryan 10mg Tablets By Mouth Once Midura, M.D. 9 Daily Portable Compressor use qid prn with one Sammy Ryan Nebulizer nebulizer Florentin Gastelum 8 Misc medication Incruse Ellipta Inhale One puff 30units Sammy TFausto 62.5mcg/Inh By Mouth Every Florentin Gastelum 8 Aerosol Morning Ondansetron 1 by mouth every 30tabs Sammy TFausto 4mg Tablets 6 hours as needed Florentin Gastelum 7 Dispers for nausea Probiotic 1 cap PO qd Sammy TFausto 250mg Capsules Florentin Gastelum 7 Diltiazem HCL ER Coated take one capsule 90caps Sammy TFausto Beads by mouth once Florentin Gastelum 7 240mg Caps ER 24HR daily Oxygen Therapy-Portable Pt is a good Sammy Fausto Oxygen Concentrator candidate to use Florentin Gastelum 7 a portable o2 concentrator instead of o2 tanks. diagnosis-COPD j44.9 Hydrochlorothiazide Take One Tablet 90tabs Sammy TFausto 25mg By Mouth Once Florentin Gastelum 7 Tablets Daily Albuterol Sulfate use one vial via 75units J44.1 Efren TFausto (2.5mg/3ML) nebulizer every 4 MD Patito 5 0.083% Nebulizer to 6 hours as needed for wheezing - Dx: J44.1 - last seen 07/14/18 Nebulizer With Tubing use nebulizer one Mary L. every 4-6 hours Florentin Joe 5 as needed for SOB. fax to [facility] Freestyle Lite Test test every day or 100units Sammy TFausto Strips as directed Florentin Gastelum 4 Strips Freestyle test once daily 100units Ksenia STRP Test STRP or as directed Pawel Brian dx:e11.9 Afnp-C Glipizide ER take one tablet 180tabs Sammy TFausto 10mg Tablets ER by mouth twice a Denisa GastelumDFausto 3 24HR day Ventolin HFA inhale 2 puffs by 18units J44.1 Sammy TFausto 06/03/201 108(90Base) mouth every 4 Midura, M.D. 0 mcg/Act Aerosol hours as needed Clopidogrel Bisulfate Take One Tablet 90tabs Sammy T. 75mg By Mouth Once Midura, M.D. 0 Tablets Daily Breo Ellipta Inhale One puff 60units J44.1 Sammy T. 100-25mcg/Inh By Mouth Once Midura, M.D. 0 Aerosol Daily Pantoprazole Sodium Take One Tablet 90tabs Sammy T. 40mg By Mouth Once Midura, M.D. [address] Daily Garlic Unknown 1000mg Capsules 0 Flaxseed Oil Unknown 1000mg Capsules 0 Magnesium 250mg Unknown 0 Immunizations CPT Code Status Date Vaccine Reaction Lot # 52939 Given 01/09/2019 High-Dose, Influenza Virus [id number] Vacccine-fluzone 65 and older 37413 Given 12/26/2015 Pneumococcal Conjugate [id number] Vacc-13 20534 Given 12/26/2015 High-Dose, Influenza Virus [id number] Vacccine-fluzone 65 and older 30708 Given 12/28/2014 Pneumococcal Immunization 09839 Given 11/03/2013 DO Not Use Split Influenza Virus Vaccine 90239 Given 01/31/2013 Preservative free flu 3 yrs+ and older [id number] Given 11/19/2011 Split Influenza Medicare: no reaction noted [id number] Fluzone 07797 Given 11/19/2011 Pneumococcal Immunization no reaction noted [id number] Q2038 Given 11/13/2010 Split Influenza [place]: [id number] Fluzone 91337 Given 12/05/2009 DO Not Use Split Influenza [id number] Virus Vaccine 51355 Given 04/18/2009 H1N1 Virus Vaccine [id number] 26591 Given 01/06/2008 DO Not Use Split Influenza [id number] Virus Vaccine 01893 Given 01/06/2007 Pneumococcal Immunization [id number] 36327 Given 01/06/2007 DO Not Use Split Influenza [id number] Virus Vaccine Vital Signs Date Vital Result Comment 03/18/2019 10:45am BP Systolic 164 mmHg BP Diastolic 68 mmHg Heart Rate 66 /min Body Temperature 98.3 F O2 % BldC Oximetry 95 % Height 65 inches 5'5" Weight 155.00 lb BMI (Body Mass Index) 25.8 kg/m2 01/09/2019 10:52am BP Systolic 152 mmHg BP Diastolic 74 mmHg Heart Rate 56 /min Body Temperature 98.3 F Respiratory Rate 16 /min Height 65 inches 5'5" Weight 161.00 lb BMI (Body Mass Index) 26.8 kg/m2 Results Test Acquired Date Facility Test Result H/L Range Note CBC Auto Diff 03/15/2019 [facility] White Blood 6.0 10^3/uL Normal 3.5-10.8 Count Red Blood Count 4.08 10^6/uL Normal 3.70-4.87 Hemoglobin 11.7 g/dL Low 12.0-16.0 Hematocrit 35 % Normal 35-47 Mean Corpuscular Volume 87 fL Normal 80-97 Mean Corpuscular Hemoglobin 29 pg Normal 27-31 Mean Corpuscular HGB Conc 33 g/dL Normal 31-36 Red Cell Distribution Width 15 % Normal 10-15 Platelet Count 200 10^3/uL Normal 150-450 Mean Platelet Volume 9.5 fL Normal 7.4-10.4 Abs Neutrophils 3.7 10^3/uL Normal 1.5-7.7 Abs Lymphocytes 1.6 10^3/uL Normal 1.0-4.8 Abs Monocytes 0.5 10^3/uL Normal 0-0.8 Abs Eosinophils 0.2 10^3/uL Normal 0-0.6 Abs Basophils 0.1 10^3/uL Normal 0-0.2 Abs Nucleated RBC 0.0 10^3/uL Granulocyte % 60.9 % Lymphocyte % 26.3 % Monocyte % 7.6 % Eosinophil % 4.0 % Basophil % 1.2 % Nucleated Red Blood Cells % 0.0 Comp Metabolic Panel 03/15/2019 [facility] Sodium 138 mmol/L Normal 135-145 Potassium 4.7 mmol/L Normal 3.5-5.0 Chloride 102 mmol/L Normal 101-111 Co2 Carbon Dioxide 28 mmol/L Normal 22-32 Anion Gap 8 mmol/L Normal 2-11 Glucose 175 mg/dL High 70-100 Blood Urea Nitrogen 26 mg/dL High 6-24 Creatinine 0.94 mg/dL Normal 0.51-0.95 BUN/Creatinine Ratio 27.7 High 8-20 Calcium 9.7 mg/dL Normal 8.6-10.3 Total Protein 7.2 g/dL Normal 6.4-8.9 Albumin 4.1 g/dL Normal 3.2-5.2 Globulin 3.1 g/dL Normal 2-4 Albumin/Globulin Ratio 1.3 Normal 1-3 Total Bilirubin 0.30 mg/dL Normal 0.2-1.0 Alkaline Phosphatase 74 U/L Normal 34-104 Alt 10 U/L Normal 7-52 Ast 12 U/L Low 13-39 Egfr Non- 57.9 >60 Egfr 70.1 >60 1 Laboratory test 03/15/2019 [facility] [place]roponin-I (TnI) 0.01 ng/mL <0.03 2 finding Comprehensive 01/09/2019 [facility](fma) Sodium 140 mEq/L 134-149 Metabolic Prof Potassium 4.7 mEq/L 3.6-5.5 Chloride 104 mEq/L 94-112 Carbon Dioxide 27 mEq/L 21-32 Glucose 205 mg/dL High 70-105 BUN 27 mg/dL High 6-26 3 Creatinine 0.9 mg/dL 0.6-1.4 BUN/Creat Ratio 30.0 CALC 8.0-36.0 Calcium 9.3 mg/dL 8.6-10.2 Total Protein 7.0 g/dL 6.4-8.3 Albumin 4.6 g/dL 3.8-5.5 Globulin 2.4 g/dL 2.0-4.8 A/G Ratio 1.9 CALC 0.6-2.3 Alk. Phosphatase 65 U/L 30-110 Alt (SGPT) 16 U/L 7-35 Ast (Sgot) 19 U/L 5-34 Total Bilirubin 0.3 mg/dL 0.2-1.3 GFR Non- >60 ml/min/1.73m^ >=60 GFR >60 ml/min/1.73m^ >=60 Lipid Profile 01/09/2019 [facility](fma) Cholesterol 194 mg/dL 120- 200 Triglycerides 174 mg/dL 30-200 HDL Cholesterol 70 mg/dL 30-85 LDL (Calculated) 89 CALC 0-129 VLDL Cholesterol 35 mg/dL 0-50 HDL Risk Factor 2.8 CALC 0.0-4.4 Laboratory test 01/09/2019 [facility] Hemoglobin A1c 7.3 % High 4.1- 5.7 finding (607)- - (Fma) Basic Metabolic 10/27/2018 [facility] Sodium 140 Normal 135-145 Panel mmol/L Potassium 4.9 mmol/L Normal 3.5-5.0 Chloride 103 mmol/L Normal 101-111 Co2 Carbon Dioxide 32 mmol/L Normal 22-32 Anion Gap 5 mmol/L Normal 2-11 Glucose 210 mg/dL High 70-100 Blood Urea Nitrogen 31 mg/dL High 6-24 Creatinine 0.91 mg/dL Normal 0.51-0.95 BUN/Creatinine Ratio 34.1 High 8-20 Calcium 9.8 mg/dL Normal 8.6-10.3 Egfr Non- 60.3 >60 Egfr 72.9 >60 4 1 Because ethnic data is not always readily available, this report includes an eGFR for both -Americans and non- Americans. The National Kidney Disease Education Program (NKDEP) does not endorse the use of the MDRD equation for patients that are not between the ages of 18 and 70, are , have extremes of body size, muscle mass, or nutritional status, or are non- or non-. According to the National Kidney Foundation, irrespective of diagnosis, the stage of the disease is based on the level of kidney function: Stage Description GFR(mL/min/1.73 m(2)) 1 Kidney damage with normal or decreased GFR 90 2 Kidney damage with mild decrease in GFR 60-89 3 Moderate decrease in GFR 30-59 4 Severe decrease in GFR 15-29 5 Kidney failure <15 (or dialysis) 2 Troponin-I testing on Plasma Separator Tubes (PST) has a known false positive rate of 0.20-0.40%. All positive troponins reflex immediately to secondary confirmatory testing. Using the Tyto DxI 800 Access Immunoassay systems, the 99th percentile upper reference limit was demonstrated to be < 0.03 ng/mL. 3 consistent w/ previous results 4 Because ethnic data is not always readily available, this report includes an eGFR for both -Americans and non- Americans. The National Kidney Disease Education Program (NKDEP) does not endorse the use of the MDRD equation for patients that are not between the ages of 18 and 70, are , have extremes of body size, muscle mass, or nutritional status, or are non- or non-. According to the National Kidney Foundation, irrespective of diagnosis, the stage of the disease is based on the level of kidney function: Stage Description GFR(mL/min/1.73 m(2)) 1 Kidney damage with normal or decreased GFR 90 2 Kidney damage with mild decrease in GFR 60-89 3 Moderate decrease in GFR 30-59 4 Severe decrease in GFR 15-29 5 Kidney failure <15 (or dialysis) Procedures Date Code Description Status 12/10/2017 710643928 Diabetic Retinal Eye Exam Completed 07/28/2016 [id number] Colonoscopy Completed 06/04/2016 [id number] Mammogram Completed 09/10/2009 [id number] Colonoscopy Completed Medical Devices Description No Information Available Encounters Type Date Location Provider Dx Diagnosis Office Visit 01/09/2019 Main Office Sammy Gastelum, I10 Essential (primary ) 11:00a Florentin hypertension E11.9 Type 2 diabetes mellitus without complications J44.9 Chronic obstructive pulmonary disease, unspecified I73.9 Peripheral vascular disease, unspecified I70.91 Generalized atherosclerosis I65.23 Occlusion and stenosis of bilateral carotid arteries I35.0 Nonrheumatic aortic (valve) stenosis K21.9 Gastro-esophageal reflux disease without esophagitis Z23 Encounter for immunization Assessments Date Code Description Provider 03/18/2019 I10 Essential (primary) hypertension Jody Nathan, [facility] 03/18/2019 E11.9 Type 2 diabetes mellitus without Jody Nathan, [employer] complications 03/18/2019 J44.9 Chronic obstructive pulmonary disease, Jody Nathan, [employer] REPRESENT[employer]IVE unspecified 03/18/2019 I73.9 Peripheral vascular disease, unspecified Jody Nathan , [employer] RE[employer]ENT[employer] 03/18/2019 I70.91 Generalized atherosclerosis Jody Nathan, [facility] 03/18/2019 I65.23 Occlusion and stenosis of bilateral carotid Jody Nathan, [facility] arteries 03/18/2019 I35.0 Nonrheumatic aortic (valve) stenosis Jody Nathan, [facility] 01/09/2019 I10 Essential (primary) hypertension Sammy Gastelum M.D. 01/09/2019 E11.9 Type 2 diabetes mellitus without Samym Gastelum M.D. complications 01/09/2019 J44.9 Chronic obstructive pulmonary disease, Sammy Gastelum M.D. unspecified 01/09/2019 I73.9 Peripheral vascular disease, unspecified Sammy Gastelum M.D. 01/09/2019 I70.91 Generalized atherosclerosis Sammy Gastelum M.D. 01/09/2019 I65.23 Occlusion and stenosis of bilateral carotid Sammy Gastelum M.D. arteries 01/09/2019 I35.0 Nonrheumatic aortic (valve) stenosis Sammy Gastelum M.D. 01/09/2019 K21.9 Gastroesophageal reflux disease Sammy Gastelum M.D. 01/09/2019 Z23 Encounter for immunization Sammy Gastelum M.D. Plan of Treatment Future Appointment(s):04/03/2019 1:30 pm - Sammy Gastelum M.D. at [facility] Nnzppr5204/20/2019 1:00 pm - Sammy Gastelum M.D. at [facility] Rwpszl0803/18/2019 - CEDRICK Esquivel10 Essential (primary) hypertensionComments:increase diltiazem to total dose 360 mg dailyfollow-up in 2 weeks to ensure it's lqywkcyF57.9 Type 2 diabetes mellitus without sdwunxxeitxcjV80.9 Chronic obstructive pulmonary disease, mdktnnfuqwzZ89.9 Peripheral vascular disease, zorxjqnqzsnM52.91 Generalized slsxjzmpvnyabkfH49.23 Occlusion and stenosis of bilateral carotid hleblgkfZ28.0 Nonrheumatic aortic (valve) stenosisAllNew Medication:Diltiazem HCL ER Beads 120 mg - 1 po daily, in addition to 240 mg dose for total 360 mg dailyComments: As always, we strongly encourage a healthy diet and making physical activity a part of your everyday life. If you have questions about how or where to start, please contact the office. Functional Status Description No Information Available Mental Status Description No Information Available Referrals Refer to Reason for Referral Status Appt Date [facility] Consult and treat peripheral Scheduled 2018 vascular disease. Office note, labs and triage faxed. LT [address] [place] [address] [phone] Eunice Null COPD jw Scheduled [address] [facility] [address] [phone] Narinder Mcginnis bilateral renal masses jw Scheduled 10/25/2018 [address] [place] [address] [place] [address] [phone]
--- OUTSIDE RECORDS SUMMARY | 2019-04-27 14:33 | XMS REPORT | Continuity of Care Document ---
:1945 External Reference #:[id number] Author Name Rancho Escalera MD (transmitted by agent of provider Jeanne Stokes) Address [address], [address] [place] [id number] Problems Active Problems Provider Date Intermittent claudication due to Amber Crain MD, FACC, Onset: 2015 atherosclerosis of [place] artery of [facility] limb Peripheral vascular disease Amber Crain MD, FACC, Onset: 08/02/2017 [facility] Neurogenic claudication co-occurrent Rafael Mcgee M.D. Onset: 10/22/2017 and due to spinal stenosis of lumbar region Lumbar spondylolisthesis Rafael Mcgee M.D. Onset: 10/22/2017 Obstructive sleep apnea syndrome Eunice Nlul MD Onset: 04/26/2019 Note: Severe. HST 01/12/19. AHI 31.4, O2 alma 59% Social History Type Date Description Comments Sex Unknown Tobacco Use Start: Unknown End: Former Cigarette Smoker Unknown Smoking Status Reviewed: 04/27/19 Former Cigarette Smoker ETOH Use Rarely consumes alcohol Tobacco Use Start: Unknown End: Patient is a former quit 11/2014, Unknown smoker smoked for 50yrs 1PPD Recreational Drug Use Denies Drug Use Exercise Type/Frequency Does not exercise Allergies, Adverse Reactions, Alerts Active Allergies Reaction Severity Comments Date Penicillin 03/27/2015 Levaquin 03/27/2015 Zithromax 03/27/2015 Atorvastatin 12/24/2016 Medications Active Medications SIG Qnty Indications Ordering Date Provider Breo Ellipphu one puff at hs Sammy Gastelum, 100-25mcg/Inh Aerosol Cartia XT one cap daily Sammy Gastelum, 240mg Caps ER 24HR MD Clopidogrel Bisulfate one tab daily Midura, Sammy, 75mg MD Tablets Glipizide ER one tab twice a Midura, Sammy, 10mg Tablets ER 24HR day Hydrochlorothiazide one tab once Midura, Sammy, 25mg Tablets daily MD Lisinopril one tab daily Midura, Sammy, 20mg Tablets MD Bupropion HCL ER (SR) 1 tab daily Midura, Sammy, 150mg MD Tablets ER 12HR Pantoprazole Sodium one tab daily Midura, Sammy, 40mg Tablets MD DR Wilber Prieto inhale one puff Unknown 62.5mcg/Inh by mouth every Aerosol day in the am Ventolin HFA 2 puffs by mouth Unknown 108(90Base) mcg/Act four times a day Aerosol as needed Albuterol Sulfate 1 vial via Unknown (2.5mg/3ML) nebulizer 4 0.083% Nebulizer times daily as needed Oxygen please use o2 at Unknown Misc 2l/min at night and prn History Medications Flonase Allergy 1 puff nasal 36.400ml J43.8 Rancho Escalera MD 01/05/2019 - Relief twice a day 02/04/2019 50mcg/Act Suspension Medications Administered in Office Medication SIG Qnty Indications Ordering Provider Date Triamcinolone (Kenalog) Tino Mcgee MD 04/16/2015 Injection Immunizations Description No Information Available Vital Signs Date Vital Result Comment 04/27/2019 10:15am Height 65 inches 5'5" Weight 165.50 lb Heart Rate 68 /min BP Systolic 204 mmHg Rue reg cuff, re-check BP Diastolic 78 mmHg Rue reg cuff, re-check BP Systolic Sitting 220 mmHg Lue reg cuff BP Diastolic Sitting 80 mmHg Lue reg cuff O2 % BldC Oximetry 95 % On Ra BMI (Body Mass Index) 27.5 kg/m2 02/16/2019 10:23am Height 65 inches 5'5" Weight 166.00 lb Heart Rate 63 /min BP Systolic Sitting 122 mmHg BP Diastolic Sitting 70 mmHg O2 % BldC Oximetry 96 % BMI (Body Mass Index) 27.6 kg/m2 Results Description No Information Available Procedures Date Code Description Status 01/12/2019 40387 Sleep Study Unattended,HRT Rate,Oxygen Sat,Resp Completed Effort/Airflow Medical Devices Description No Information Available Encounters Type Date Location Provider Dx Diagnosis Office Visit 02/16/2019 [facility] And Rancho Escalera MD G47.30 Sleep apnea, 10:15a [facility] J44.9 Chronic obstructive pulmonary disease, unspecified Office Visit 01/05/2019 1:40p [facility] Rancho Escalera J43.8 Other emphysema [facility] G47.30 Sleep apnea, unspecified Assessments Date Code Description Provider 04/27/2019 J44.9 Chronic obstructive pulmonary disease, Rancho Escalera MD unspecified 04/27/2019 G47.30 Sleep apnea, unspecified Rancho Escalera MD 02/16/2019 G47.30 Sleep apnea, unspecified Rancho Escalera MD 02/16/2019 J44.9 Chronic obstructive pulmonary disease, Rancho Escalera MD unspecified 01/12/2019 G47.33 Obstructive sleep apnea (adult) (pediatric) Eunice Null MD 01/05/2019 J43.8 Other emphysema Rancho Escalera MD 01/05/2019 G47.30 Sleep apnea, unspecified Rancho Escalera MD Plan of Treatment 04/27/2019 - Rancho Escalera MDJ44.9 Chronic obstructive pulmonary disease, unspecifiedComments:The patient should continue Breo and Incruse. She should use oxygen at activity. We will do an overnight oximetry to see if she needs oxygen at night. The patient will also need pulmonary function tests and a CT chest low-dose in 12 months.Follow up:Follow-up in 2 months.G47.30 Sleep apnea, unspecifiedComments:Continue CPAP. We will do an overnight oximetry off oxygen to see if she needs oxygen at night. Functional Status Description No Information Available Mental Status Description No Information Available Referrals Description No Information Available
[2019-04-27 14:39] LABS: INR 0.95 (0.82-1.09)
[2019-04-27 14:53] LABS: Albumin 4.2 g/dL (3.2-5.2); Albumin/Globulin Ratio 1.4 (1-3); Calcium 9.8 mg/dL (8.6-10.3); EGFR African American 65.2 (>60); EGFR Non-African American 53.9 (>60); Globulin 2.9 g/dL (2-4); Potassium 4.2 mmol/L (3.5-5.0); Total Bilirubin 0.3 mg/dL (0.2-1.0); Total Protein 7.1 g/dL (6.4-8.9)
[2019-04-27 14:55] LABS: Troponin I 0.01 ng/mL (<0.03)
[2019-04-27 18:16] VITALS: BP 170/94
== END 2019-04-27 18:15 | disposition home or self-care (01) ==
LOC: ED 13:51
DX: I10 Essential (primary) hypertension (principal); E11.9 Type 2 diabetes mellitus without complications; Z79.84 Long term (current) use of oral hypoglycemic drugs; E78.00 Pure hypercholesterolemia, unspecified; J44.9 Chronic obstructive pulmonary disease, unspecified; Z99.81 Dependence on supplemental oxygen; Z79.02 Long term (current) use of antithrombotics/antiplatelets; Z79.899 Other long term (current) drug therapy; Z95.5 Presence of coronary angioplasty implant and graft; Z88.1 Allergy status to other antibiotic agents; Z88.0 Allergy status to penicillin; Z88.8 Allergy status to other drugs, medicaments and biological substances; Z87.891 Personal history of nicotine dependence
CPT/HCPCS: 36415; 80053; 84484; 85025; 85610; 93005; 99283